=== PATIENT | female | born 1965 | race Caucasian/White ===

== ENCOUNTER → 2016-02-22 | Outpatient (REF) | payer BC ==
[2016-02-22 12:09] LABS: MEAN CORPUSCULAR HEMOGLOBIN 29.4 pg (27.0-33.0); MEAN CORPUSCULAR HGB CONC 33.9 g/dl (32.0-36.5); MEAN CORPUSCULAR VOLUME 86.8 fl (80.0-96.0); RED CELL DISTRIBUTION WIDTH 12.9 % (11.5-14.5); WHITE BLOOD COUNT 6.2 K/mm3 (4.0-10.0)
[2016-02-22 12:27] LABS: ALBUMIN 3.7 GM/DL (3.2-5.2); ALBUMIN/GLOBULIN RATIO 1.23 (1.00-1.93); ALKALINE PHOSPHATASE 64 U/L (45-117); ALT/SGPT 22 U/L (12-78); ANION GAP 7 MEQ/L (8-16); AST/SGOT 9 U/L (15-37); BILIRUBIN,TOTAL 0.4 MG/DL (0.2-1.0); BLOOD UREA NITROGEN 17 MG/DL (7-18); CARBON DIOXIDE LEVEL 27 MEQ/L (21-32); CHLORIDE LEVEL 108 MEQ/L (98-107); CHOLESTEROL LEVEL 145 MG/DL (<200); CREATININE FOR GFR 0.77 MG/DL (0.55-1.02); FREE T4 1.21 NG/DL (0.76-1.46); GLOMERULAR FILTRATION RATE > 60.0 (>58); GLUCOSE, FASTING 85 MG/DL (70-105); POTASSIUM SERUM 4.8 MEQ/L (3.5-5.1); SODIUM LEVEL 142 MEQ/L (136-145); TOTAL PROTEIN 6.7 GM/DL (6.4-8.2); TRIGLYCERIDES LEVEL 54 MG/DL (<150)
== END ==
LOC: M LABDRAW1 11:33
PROVIDERS: ATTEND Nurse Practitioner Family
DX: E78.00 Pure hypercholesterolemia, unspecified (principal); E03.9 Hypothyroidism, unspecified

== ENCOUNTER → 2016-06-02 | Outpatient (REF) | payer BC ==
[2016-06-02 12:31] LABS: MEAN CORPUSCULAR HEMOGLOBIN 29.9 pg (27.0-33.0); MEAN CORPUSCULAR HGB CONC 33.6 g/dl (32.0-36.5); RED CELL DISTRIBUTION WIDTH 12.8 % (11.5-14.5); WHITE BLOOD COUNT 5.8 K/mm3 (4.0-10.0)
[2016-06-02 13:07] LABS: ALBUMIN 3.5 GM/DL (3.2-5.2); ALBUMIN/GLOBULIN RATIO 1.13 (1.00-1.93); ALKALINE PHOSPHATASE 62 U/L (45-117); ALT/SGPT 27 U/L (12-78); ANION GAP 4 MEQ/L (8-16); AST/SGOT 15 U/L (15-37); BILIRUBIN,TOTAL 0.4 MG/DL (0.2-1.0); BLOOD UREA NITROGEN 14 MG/DL (7-18); CALCIUM LEVEL 8.6 MG/DL (8.5-10.1); CARBON DIOXIDE LEVEL 29 MEQ/L (21-32); CHLORIDE LEVEL 106 MEQ/L (98-107); CHOLESTEROL LEVEL 163 MG/DL (<200); CREATININE FOR GFR 0.72 MG/DL (0.55-1.02); GLOMERULAR FILTRATION RATE > 60.0 (>58); GLUCOSE, FASTING 76 MG/DL (70-105); MAGNESIUM LEVEL 2.2 MG/DL (1.8-2.4); POTASSIUM SERUM 4.9 MEQ/L (3.5-5.1); SODIUM LEVEL 139 MEQ/L (136-145); TOTAL PROTEIN 6.6 GM/DL (6.4-8.2); TRIGLYCERIDES LEVEL 91 MG/DL (<150)
== END ==
LOC: M LABDRAW1 11:44
PROVIDERS: ATTEND Nurse Practitioner Family
DX: D64.9 Anemia, unspecified (principal); E87.6 Hypokalemia; E78.5 Hyperlipidemia, unspecified; E03.9 Hypothyroidism, unspecified; E55.9 Vitamin D deficiency, unspecified; E83.42 Hypomagnesemia

== ENCOUNTER → 2016-06-05 | Outpatient (REF) | payer BC ==
[2016-06-05 12:19] LABS: MAGNESIUM LEVEL 2.3 MG/DL (1.8-2.4)
== END ==
LOC: M LABDRAW1 11:29
PROVIDERS: ATTEND Nurse Practitioner Family
DX: E83.42 Hypomagnesemia (principal)

== ENCOUNTER → 2016-10-03 | Outpatient (REF) | payer BC ==
[2016-10-03 12:47] LABS: MEAN CORPUSCULAR HEMOGLOBIN 29.8 pg (27.0-33.0); MEAN CORPUSCULAR HGB CONC 33.6 g/dl (32.0-36.5); MEAN CORPUSCULAR VOLUME 88.6 fl (80.0-96.0); RED CELL DISTRIBUTION WIDTH 12.5 % (11.5-14.5); WHITE BLOOD COUNT 6.4 K/mm3 (4.0-10.0)
[2016-10-03 13:28] LABS: VITAMIN B12 LEVEL 1321 PG/ML (247-911)
[2016-10-03 13:36] LABS: ALBUMIN 3.6 GM/DL (3.2-5.2); ALBUMIN/GLOBULIN RATIO 1.16 (1.00-1.93); ALKALINE PHOSPHATASE 59 U/L (45-117); ALT/SGPT 22 U/L (12-78); ANION GAP 6 MEQ/L (8-16); AST/SGOT 16 U/L (15-37); BILIRUBIN,TOTAL 0.4 MG/DL (0.2-1.0); BLOOD UREA NITROGEN 16 MG/DL (7-18); CARBON DIOXIDE LEVEL 27 MEQ/L (21-32); CHLORIDE LEVEL 108 MEQ/L (98-107); CHOLESTEROL LEVEL 161 MG/DL (<200); CREATININE FOR GFR 0.84 MG/DL (0.55-1.02); FREE T4 1.13 NG/DL (0.76-1.46); GLOMERULAR FILTRATION RATE > 60.0 (>58); GLUCOSE, FASTING 82 MG/DL (70-105); POTASSIUM SERUM 5.1 MEQ/L (3.5-5.1); SODIUM LEVEL 141 MEQ/L (136-145); TOTAL PROTEIN 6.7 GM/DL (6.4-8.2); TRIGLYCERIDES LEVEL 80 MG/DL (<150)
== END ==
LOC: M LABDRAW1 08:08
PROVIDERS: ATTEND Internal Medicine Cardiovascular Disease
DX: E03.9 Hypothyroidism, unspecified (principal); E55.9 Vitamin D deficiency, unspecified; E78.4 Other hyperlipidemia; E53.9 Vitamin B deficiency, unspecified

== ENCOUNTER → 2016-12-30 | Outpatient (CLI) | payer BC ==
[2016-12-30 10:51] LABS: MEAN CORPUSCULAR HEMOGLOBIN 29.1 pg (27.0-33.0); MEAN CORPUSCULAR HGB CONC 33.3 g/dl (32.0-36.5); MEAN CORPUSCULAR VOLUME 87.3 fl (80.0-96.0); PLATELET COUNT, AUTOMATED 263 10^3/uL (150-450); RED CELL DISTRIBUTION WIDTH 12.4 % (11.5-14.5); WHITE BLOOD COUNT 7.3 10^3/uL (4.0-10.0)
[2016-12-30 11:11] LABS: VITAMIN B12 LEVEL 1856 PG/ML (247-911)
[2016-12-30 11:22] LABS: ALBUMIN 3.6 GM/DL (3.2-5.2); ALKALINE PHOSPHATASE 58 U/L (45-117); ALT/SGPT 26 U/L (12-78); ANION GAP 6 MEQ/L (8-16); AST/SGOT 8 U/L (7-37); BILIRUBIN,TOTAL 0.4 MG/DL (0.2-1.0); BLOOD UREA NITROGEN 13 MG/DL (7-18); CALCIUM LEVEL 8.8 MG/DL (8.5-10.1); CARBON DIOXIDE LEVEL 28 MEQ/L (21-32); CHLORIDE LEVEL 107 MEQ/L (98-107); CHOLESTEROL LEVEL 181 MG/DL (<200); CREATININE FOR GFR 0.78 MG/DL (0.55-1.02); FREE T4 1.15 NG/DL (0.76-1.46); GLOMERULAR FILTRATION RATE > 60.0 (>51); GLUCOSE, FASTING 82 MG/DL (70-105); POTASSIUM SERUM 4.1 MEQ/L (3.5-5.1); SODIUM LEVEL 141 MEQ/L (136-145); TOTAL PROTEIN 6.6 GM/DL (6.4-8.2); TRIGLYCERIDES LEVEL 55 MG/DL (<150)
== END ==
LOC: M LABDRAW1 09:53
PROVIDERS: ATTEND Nurse Practitioner Family
DX: E78.00 Pure hypercholesterolemia, unspecified (principal); E03.9 Hypothyroidism, unspecified; E55.9 Vitamin D deficiency, unspecified

== ENCOUNTER → 2017-06-16 | Outpatient (REF) | payer BC ==
[2017-06-16 13:53] LABS: HEMATOCRIT 39.6 % (36.0-47.0); HEMOGLOBIN 12.9 g/dl (12.0-15.5); MEAN CORPUSCULAR HEMOGLOBIN 28.7 pg (27.0-33.0); MEAN CORPUSCULAR HGB CONC 32.6 g/dl (32.0-36.5); MEAN CORPUSCULAR VOLUME 88.2 fl (80.0-96.0); PLATELET COUNT, AUTOMATED 273 10^3/uL (150-450); RED BLOOD COUNT 4.49 10^6/uL (4.00-5.40); RED CELL DISTRIBUTION WIDTH 12.4 % (11.5-14.5); WHITE BLOOD COUNT 5.7 10^3/uL (4.0-10.0)
[2017-06-16 14:15] LABS: TOTAL 25(OH) VITAMIN D 42.6 NG/ML (30.0-100.0)
[2017-06-16 14:21] LABS: ALBUMIN 3.6 GM/DL (3.2-5.2); ALBUMIN/GLOBULIN RATIO 1.03 (1.00-1.93); ALKALINE PHOSPHATASE 61 U/L (45-117); ALT/SGPT 24 U/L (12-78); ANION GAP 5 MEQ/L (8-16); AST/SGOT 16 U/L (7-37); BILIRUBIN,TOTAL 0.5 MG/DL (0.2-1.0); BLOOD UREA NITROGEN 15 MG/DL (7-18); CALCIUM LEVEL 8.9 MG/DL (8.5-10.1); CARBON DIOXIDE LEVEL 27 MEQ/L (21-32); CHLORIDE LEVEL 110 MEQ/L (98-107); CHOLESTEROL LEVEL 160 MG/DL (<200); CHOLESTEROL RISK RATIO 3.076 (<5); CPK CREATINE PHOSPHOKINASE 70 U/L (26-192); CREATININE FOR GFR 0.79 MG/DL (0.55-1.30); FREE T4 1.12 NG/DL (0.76-1.46); GLOMERULAR FILTRATION RATE > 60.0 (>51); GLUCOSE, FASTING 77 MG/DL (70-100); HDL CHOLESTEROL 52 MG/DL (>40); LDL CHOLESTEROL 96.2 MG/DL (<100); NON-HDL-C 108 MG/DL; POTASSIUM SERUM 4.6 MEQ/L (3.5-5.1); SODIUM LEVEL 142 MEQ/L (136-145); TOTAL PROTEIN 7.1 GM/DL (6.4-8.2); TRIGLYCERIDES LEVEL 59 MG/DL (<150)
== END ==
LOC: M LABDRAW1 13:19
DX: I10 Essential (primary) hypertension (principal); E03.9 Hypothyroidism, unspecified; E78.00 Pure hypercholesterolemia, unspecified; E55.9 Vitamin D deficiency, unspecified
CPT/HCPCS: 82550

== ENCOUNTER → 2017-09-14 | Outpatient (REF) | payer BC ==
[2017-09-14 12:17] LABS: HEMATOCRIT 38.7 % (36.0-47.0); HEMOGLOBIN 12.9 g/dl (12.0-15.5); MEAN CORPUSCULAR HEMOGLOBIN 29.5 pg (27.0-33.0); MEAN CORPUSCULAR HGB CONC 33.3 g/dl (32.0-36.5); MEAN CORPUSCULAR VOLUME 88.4 fl (80.0-96.0); PLATELET COUNT, AUTOMATED 232 10^3/uL (150-450); RED BLOOD COUNT 4.38 10^6/uL (4.00-5.40); RED CELL DISTRIBUTION WIDTH 12.4 % (11.5-14.5); WHITE BLOOD COUNT 5.3 10^3/uL (4.0-10.0)
[2017-09-14 12:23] LABS: TOTAL 25(OH) VITAMIN D 39.4 NG/ML (30.0-100.0)
[2017-09-14 12:26] LABS: ALKALINE PHOSPHATASE 60 U/L (45-117); ALT/SGPT 21 U/L (12-78); ANION GAP 7 MEQ/L (8-16); AST/SGOT 11 U/L (7-37); BILIRUBIN,TOTAL 0.3 MG/DL (0.2-1.0); BLOOD UREA NITROGEN 17 MG/DL (7-18); CALCIUM LEVEL 8.5 MG/DL (8.5-10.1); CARBON DIOXIDE LEVEL 27 MEQ/L (21-32); CHLORIDE LEVEL 109 MEQ/L (98-107); CHOLESTEROL LEVEL 171 MG/DL (<200); CHOLESTEROL RISK RATIO 3.109 (<5); CPK CREATINE PHOSPHOKINASE 60 U/L (26-192); CREATININE FOR GFR 0.87 MG/DL (0.55-1.30); GLOMERULAR FILTRATION RATE > 60.0 (>51); GLUCOSE, FASTING 84 MG/DL (70-100); HDL CHOLESTEROL 55 MG/DL (>40); LDL CHOLESTEROL 100.8 MG/DL (<100); NON-HDL-C 116 MG/DL; POTASSIUM SERUM 4.7 MEQ/L (3.5-5.1); SODIUM LEVEL 143 MEQ/L (136-145); TOTAL PROTEIN 6.8 GM/DL (6.4-8.2); TRIGLYCERIDES LEVEL 76 MG/DL (<150)
[2017-09-14 12:27] LABS: ALBUMIN 3.5 GM/DL (3.2-5.2); ALBUMIN/GLOBULIN RATIO 1.06 (1.00-1.93); FREE T4 1.03 NG/DL (0.76-1.46)
== END ==
LOC: M LABDRAW1 11:50
DX: E03.9 Hypothyroidism, unspecified (principal); E78.00 Pure hypercholesterolemia, unspecified; E55.9 Vitamin D deficiency, unspecified
CPT/HCPCS: 82550

== ENCOUNTER → 2017-12-21 | Outpatient (REF) | payer BC ==
[2017-12-21 13:18] LABS: BASO # 0.1 10^3/uL (0.0-0.2); BASO % 0.7 % (0.0-1.0); EOS # 0.1 10^3/uL (0.0-0.50); EOS % 1.3 % (0.0-3.0); HEMATOCRIT 40.2 % (36.0-47.0); HEMOGLOBIN 13.2 g/dl (12.0-15.5); IMMATURE GRANULOCYTE % 0.4 % (0-3.0); LYMPH # 1.3 10^3/uL (1.5-4.5); MEAN CORPUSCULAR HEMOGLOBIN 29.3 pg (27.0-33.0); MEAN CORPUSCULAR HGB CONC 32.8 g/dl (32.0-36.5); MEAN CORPUSCULAR VOLUME 89.3 fl (80.0-96.0); MONO # 0.6 10^3/uL (0.0-0.8); MONO % 7.8 % (0.0-5.0); NEUTROPHILS # 5.1 10^3/uL (1.8-7.7); NEUTROPHILS % 71.8 % (36.0-66.0); PLATELET COUNT, AUTOMATED 249 10^3/uL (150-450); RED CELL DISTRIBUTION WIDTH 12.5 % (11.5-14.5); WHITE BLOOD COUNT 7.1 10^3/uL (4.0-10.0)
[2017-12-21 13:44] LABS: ERYTHROCYTE SEDIMENTATION RATE 17 mm/hr (0-30)
[2017-12-21 13:53] LABS: RHEUMATOID FACTOR QUANT < 10.0 IU/ML (<15.0)
[2017-12-21 14:17] LABS: FOLATE 13.8 NG/ML; TOTAL 25(OH) VITAMIN D 31.8 NG/ML (30.0-100.0); VITAMIN B12 LEVEL 1847 PG/ML
[2017-12-22 15:15] LABS: ANTI DOUBLE STRAND-DNA AB 1 IU/mL (0-9); ANTINUCLEAR ANTIBODIES DIRECT Positive (Negative); RNP ANTIBODIES <0.2 AI (0.0-0.9); SJOGREN'S ANTI SS-A <0.2 AI (0.0-0.9); SJOGREN'S ANTI SS-B 0.6 AI (0.0-0.9); SMITH ANTIBODIES <0.2 AI (0.0-0.9)
== END ==
LOC: M LABNEURO 08:36
DX: E55.9 Vitamin D deficiency, unspecified (principal); E53.8 Deficiency of other specified B group vitamins
CPT/HCPCS: 82746

== ENCOUNTER → 2018-07-17 | Outpatient (REF) | payer BC | LOC: M SFHCLERA 10:48 | PROVIDERS: ATTEND Nurse Practitioner Family | DX: J02.9 Acute pharyngitis, unspecified (principal) ==

== ENCOUNTER → 2018-07-29 | Outpatient (REF) | payer BC ==
[2018-07-29 12:40] LABS: HEMATOCRIT 38.2 % (36.0-47.0); HEMOGLOBIN 12.3 g/dl (12.0-15.5); MEAN CORPUSCULAR HEMOGLOBIN 28.5 pg (27.0-33.0); MEAN CORPUSCULAR HGB CONC 32.2 g/dl (32.0-36.5); MEAN CORPUSCULAR VOLUME 88.6 fl (80.0-96.0); PLATELET COUNT, AUTOMATED 235 10^3/uL (150-450); RED BLOOD COUNT 4.31 10^6/uL (4.00-5.40); WHITE BLOOD COUNT 7.1 10^3/uL (4.0-10.0)
[2018-07-29 12:55] LABS: ALBUMIN 3.6 GM/DL (3.2-5.2); ALT/SGPT 19 U/L (12-78); BILIRUBIN,TOTAL 0.4 MG/DL (0.2-1.0); BLOOD UREA NITROGEN 18 MG/DL (7-18); CALCIUM LEVEL 8.8 MG/DL (8.5-10.1); CARBON DIOXIDE LEVEL 29 MEQ/L (21-32); CHLORIDE LEVEL 108 MEQ/L (98-107); CHOLESTEROL LEVEL 156 MG/DL (<200); CPK CREATINE PHOSPHOKINASE 41 U/L (26-192); CREATININE FOR GFR 0.83 MG/DL (0.55-1.30); FREE T4 1.22 NG/DL (0.76-1.46); GLOMERULAR FILTRATION RATE > 60.0 (>51); GLUCOSE, FASTING 80 MG/DL (70-100); HDL CHOLESTEROL 48 MG/DL (>40); LDL CHOLESTEROL 93 MG/DL (<100); NON-HDL-C 108 MG/DL; POTASSIUM SERUM 3.9 MEQ/L (3.5-5.1); SODIUM LEVEL 142 MEQ/L (136-145); TRIGLYCERIDES LEVEL 77 MG/DL (<150)
== END ==
LOC: M LABDRAW1 12:03
PROVIDERS: ATTEND Nurse Practitioner Family
DX: I10 Essential (primary) hypertension (principal); E03.9 Hypothyroidism, unspecified; E78.5 Hyperlipidemia, unspecified

== ENCOUNTER → 2018-09-07 | Outpatient (REF) | payer BC | LOC: M SFHCLERA 10:09 | PROVIDERS: ATTEND Nurse Practitioner Family | DX: J02.9 Acute pharyngitis, unspecified (principal) ==

== ENCOUNTER → 2018-11-03 | Outpatient (REF) | payer BC ==
[2018-11-03 12:53] LABS: HEMATOCRIT 38.4 % (36.0-47.0); HEMOGLOBIN 12.2 g/dl (12.0-15.5); MEAN CORPUSCULAR HEMOGLOBIN 28.8 pg (27.0-33.0); MEAN CORPUSCULAR HGB CONC 31.8 g/dl (32.0-36.5); MEAN CORPUSCULAR VOLUME 90.8 fl (80.0-96.0); PLATELET COUNT, AUTOMATED 225 10^3/uL (150-450); RED BLOOD COUNT 4.23 10^6/uL (4.00-5.40); WHITE BLOOD COUNT 5.4 10^3/uL (4.0-10.0)
[2018-11-03 13:08] LABS: ALBUMIN 3.6 GM/DL (3.2-5.2); ALT/SGPT 18 U/L (12-78); BILIRUBIN,TOTAL 0.4 MG/DL (0.2-1.0); BLOOD UREA NITROGEN 12 MG/DL (7-18); CALCIUM LEVEL 8.9 MG/DL (8.5-10.1); CARBON DIOXIDE LEVEL 26 MEQ/L (21-32); CHLORIDE LEVEL 108 MEQ/L (98-107); CHOLESTEROL LEVEL 153 MG/DL (<200); CPK CREATINE PHOSPHOKINASE 48 U/L (26-192); CREATININE FOR GFR 0.72 MG/DL (0.55-1.30); FREE T4 1.15 NG/DL (0.76-1.46); GLOMERULAR FILTRATION RATE > 60.0 (>51); GLUCOSE, FASTING 75 MG/DL (70-100); HDL CHOLESTEROL 51 MG/DL (>40); LDL CHOLESTEROL 90 MG/DL (<100); NON-HDL-C 102 MG/DL; POTASSIUM SERUM 3.7 MEQ/L (3.5-5.1); SODIUM LEVEL 141 MEQ/L (136-145); TOTAL PROTEIN 6.5 GM/DL (6.4-8.2); TRIGLYCERIDES LEVEL 59 MG/DL (<150)
[2018-11-03 13:51] LABS: TOTAL 25(OH) VITAMIN D 54.6 NG/ML (30.0-100.0)
== END ==
LOC: M LABDRAW1 11:55
PROVIDERS: ATTEND Nurse Practitioner Family
DX: I10 Essential (primary) hypertension (principal); E78.5 Hyperlipidemia, unspecified; E55.9 Vitamin D deficiency, unspecified; E03.9 Hypothyroidism, unspecified

== ENCOUNTER → 2019-01-03 | Outpatient (REF) | payer BC | LOC: M SFHCLERA 10:48 | PROVIDERS: ATTEND Nurse Practitioner Family | DX: J02.9 Acute pharyngitis, unspecified (principal) ==

== ENCOUNTER → 2019-02-04 | Outpatient (REF) | payer BC ==
[2019-02-04 12:31] LABS: ALBUMIN 3.5 GM/DL (3.2-5.2); ALT/SGPT 25 U/L (12-78); BILIRUBIN,TOTAL 0.3 MG/DL (0.2-1.0); BLOOD UREA NITROGEN 19 MG/DL (7-18); CALCIUM LEVEL 9.3 MG/DL (8.5-10.1); CARBON DIOXIDE LEVEL 28 MEQ/L (21-32); CHLORIDE LEVEL 108 MEQ/L (98-107); CHOLESTEROL LEVEL 164 MG/DL (<200); CHOLESTEROL RISK RATIO 2.645 (<5); CPK CREATINE PHOSPHOKINASE 58 U/L (26-192); GLOMERULAR FILTRATION RATE > 60.0 (>51); GLUCOSE, FASTING 77 MG/DL (70-100); HDL CHOLESTEROL 62 MG/DL (>40); LDL CHOLESTEROL 90 MG/DL (<100); NON-HDL-C 102 MG/DL; POTASSIUM SERUM 4.1 MEQ/L (3.5-5.1); SODIUM LEVEL 141 MEQ/L (136-145); TRIGLYCERIDES LEVEL 62 MG/DL (<150)
[2019-02-04 12:36] LABS: HEMATOCRIT 38.8 % (36.0-47.0); HEMOGLOBIN 12.4 g/dl (12.0-15.5); MEAN CORPUSCULAR VOLUME 90.7 fl (80.0-96.0); PLATELET COUNT, AUTOMATED 231 10^3/uL (150-450); RED BLOOD COUNT 4.28 10^6/uL (4.00-5.40); WHITE BLOOD COUNT 5.3 10^3/uL (4.0-10.0)
== END ==
LOC: M LABDRAW1 11:57
PROVIDERS: ATTEND Nurse Practitioner Family
DX: I10 Essential (primary) hypertension (principal); E78.5 Hyperlipidemia, unspecified; E03.9 Hypothyroidism, unspecified

== ENCOUNTER → 2019-05-03 | Outpatient (REF) | payer BC ==
[2019-05-03 11:08] LABS: C REACTIVE PROTEIN QUANTITATIV < 0.30 MG/DL (0.00-0.30); RHEUMATOID FACTOR QUANT < 10.0 IU/ML (<15.0); URIC ACID 4.5 MG/DL (2.6-6.0)
== END ==
LOC: M LABDRAW1 09:08
PROVIDERS: ATTEND Physician Assistant
DX: M50.30 Other cervical disc degeneration, unspecified cervical region (principal)

== ENCOUNTER → 2019-05-03 | Outpatient (REF) | payer BC ==
[2019-05-03 11:01] LABS: HEMATOCRIT 40.8 % (36.0-47.0); HEMOGLOBIN 13.2 g/dl (12.0-15.5); MEAN CORPUSCULAR HEMOGLOBIN 29.4 pg (27.0-33.0); MEAN CORPUSCULAR HGB CONC 32.4 g/dl (32.0-36.5); MEAN CORPUSCULAR VOLUME 90.9 fl (80.0-96.0); PLATELET COUNT, AUTOMATED 241 10^3/uL (150-450); RED BLOOD COUNT 4.49 10^6/uL (4.00-5.40); WHITE BLOOD COUNT 4.3 10^3/uL (4.0-10.0)
[2019-05-03 11:15] LABS: ALBUMIN 3.5 GM/DL (3.2-5.2); ALT/SGPT 24 U/L (12-78); BILIRUBIN,TOTAL 0.4 MG/DL (0.2-1.0); BLOOD UREA NITROGEN 17 MG/DL (7-18); CALCIUM LEVEL 8.9 MG/DL (8.5-10.1); CARBON DIOXIDE LEVEL 30 MEQ/L (21-32); CHLORIDE LEVEL 107 MEQ/L (98-107); CHOLESTEROL LEVEL 164 MG/DL (<200); CHOLESTEROL RISK RATIO 3.153 (<5); CPK CREATINE PHOSPHOKINASE 55 U/L (26-192); CREATININE FOR GFR 0.83 MG/DL (0.55-1.30); GLOMERULAR FILTRATION RATE > 60.0 (>51); GLUCOSE, FASTING 66 MG/DL (70-100); HDL CHOLESTEROL 52 MG/DL (>40); LDL CHOLESTEROL 95 MG/DL (<100); NON-HDL-C 112 MG/DL; SODIUM LEVEL 140 MEQ/L (136-145); TRIGLYCERIDES LEVEL 83 MG/DL (<150)
[2019-05-03 11:18] LABS: TOTAL 25(OH) VITAMIN D 60.3 NG/ML (30.0-100.0)
== END ==
LOC: M LABDRAW1 09:06
PROVIDERS: ATTEND Nurse Practitioner Family
DX: M50.30 Other cervical disc degeneration, unspecified cervical region (principal)

== ENCOUNTER → 2019-06-16 | Outpatient (CLI) | payer BC ==
[2019-06-16 11:11] LABS: HEMATOCRIT 41.9 % (36.0-47.0); HEMOGLOBIN 13.4 g/dl (12.0-15.5); MEAN CORPUSCULAR HEMOGLOBIN 28.8 pg (27.0-33.0); MEAN CORPUSCULAR VOLUME 90.1 fl (80.0-96.0); PLATELET COUNT, AUTOMATED 239 10^3/uL (150-450); RED BLOOD COUNT 4.65 10^6/uL (4.00-5.40); WHITE BLOOD COUNT 4.3 10^3/uL (4.0-10.0)
[2019-06-16 11:32] LABS: ALBUMIN 3.7 GM/DL (3.2-5.2); ALT/SGPT 39 U/L (12-78); BILIRUBIN,TOTAL 0.3 MG/DL (0.2-1.0); BLOOD UREA NITROGEN 17 MG/DL (7-18); CARBON DIOXIDE LEVEL 30 MEQ/L (21-32); CHLORIDE LEVEL 108 MEQ/L (98-107); CPK CREATINE PHOSPHOKINASE 152 U/L (26-192); CREATININE FOR GFR 0.84 MG/DL (0.55-1.30); GLOMERULAR FILTRATION RATE > 60.0 (>51); GLUCOSE, FASTING 82 MG/DL (70-100); LDH LACTATE DEHYDROGENASE 194 U/L (84-246); POTASSIUM SERUM 4.6 MEQ/L (3.5-5.1); SODIUM LEVEL 142 MEQ/L (136-145); TOTAL PROTEIN 7.2 GM/DL (6.4-8.2)
== END ==
LOC: M LAB 10:20
PROVIDERS: ATTEND Dermatology
DX: R21 Rash and other nonspecific skin eruption (principal)

== ENCOUNTER → 2019-07-01 | Outpatient (REF) | payer BC ==
[2019-07-01 16:57] LABS: COMPLEMENT C3 95 MG/DL (90-180); COMPLEMENT C4 24 MG/DL (10-40); CPK CREATINE PHOSPHOKINASE 157 U/L (26-192)
[2019-07-01 17:17] LABS: HEPATITIS B SURFACE ANTIGEN NEGATIVE (NEGATIVE)
[2019-07-05 14:07] LABS: ANTI DS-DNA AB Negative (Negative); HEPATITIS B CORE ANTIBODY IGG Negative (Negative); RNP ANTIBODY < 0.2 AI (0.0-0.9); SMITHS ANTIBODY < 0.2 AI (0.0-0.9); SSA SJOGRENS A <0.2 AI (0.0-0.9); SSB SJOGRENS B 0.6 AI (0.0-0.9)
[2019-07-06 07:52] LABS: HEPATITIS C VIRUS ABY INDEX 0.1 INDEX (<0.8)
== END ==
LOC: M SFHCRHEU 11:24
PROVIDERS: ATTEND Internal Medicine
DX: M33.90 Dermatopolymyositis, unspecified, organ involvement unspecified (principal); R76.8 Other specified abnormal immunological findings in serum

== ENCOUNTER → 2019-08-09 | Outpatient (CLI) | payer BC ==
--- NOTE | 2019-08-09 11:13 | REP ---
Clinical: History of dermatomyositis . Comparison: None . Technique: PA and lateral. Findings: The mediastinum and cardiac silhouette are normal. The lung whitaker are clear and without acute consolidation, effusion, or pneumothorax. The skeletal structures are intact and normal. Impression: 1. No acute cardiopulmonary process. Electronically Signed by Deonte Becerra MD 08/09/2019 11:04 A
== END ==
LOC: M RAD 10:49
PROVIDERS: ATTEND Internal Medicine
DX: M33.90 Dermatopolymyositis, unspecified, organ involvement unspecified (principal)

== ENCOUNTER → 2019-08-10 | Outpatient (CLI) | payer BC ==
[2019-08-10 11:28] LABS: HEMATOCRIT 38.1 % (36.0-47.0); HEMOGLOBIN 12.1 g/dl (12.0-15.5); MEAN CORPUSCULAR HEMOGLOBIN 28.7 pg (27.0-33.0); MEAN CORPUSCULAR HGB CONC 31.8 g/dl (32.0-36.5); MEAN CORPUSCULAR VOLUME 90.3 fl (80.0-96.0); PLATELET COUNT, AUTOMATED 227 10^3/uL (150-450); RED BLOOD COUNT 4.22 10^6/uL (4.00-5.40); WHITE BLOOD COUNT 5.4 10^3/uL (4.0-10.0)
[2019-08-10 12:10] LABS: ALBUMIN 3.4 GM/DL (3.2-5.2); ALT/SGPT 37 U/L (12-78); BILIRUBIN,TOTAL 0.3 MG/DL (0.2-1.0); BLOOD UREA NITROGEN 13 MG/DL (7-18); CARBON DIOXIDE LEVEL 30 MEQ/L (21-32); CHLORIDE LEVEL 107 MEQ/L (98-107); CHOLESTEROL LEVEL 156 MG/DL (<200); CHOLESTEROL RISK RATIO 2.736 (<5); CPK CREATINE PHOSPHOKINASE 127 U/L (26-192); CREATININE FOR GFR 0.72 MG/DL (0.55-1.30); FREE T4 1.13 NG/DL (0.76-1.46); GLOMERULAR FILTRATION RATE > 60.0 (>51); GLUCOSE, FASTING 74 MG/DL (70-100); HDL CHOLESTEROL 57 MG/DL (>40); LDL CHOLESTEROL 86 MG/DL (<100); NON-HDL-C 99 MG/DL; POTASSIUM SERUM 3.9 MEQ/L (3.5-5.1); SODIUM LEVEL 142 MEQ/L (136-145); TOTAL PROTEIN 6.9 GM/DL (6.4-8.2); TRIGLYCERIDES LEVEL 66 MG/DL (<150)
== END ==
LOC: M LAB 10:17
PROVIDERS: ATTEND Nurse Practitioner Family
DX: I10 Essential (primary) hypertension (principal); E78.5 Hyperlipidemia, unspecified; E03.9 Hypothyroidism, unspecified

== ENCOUNTER → 2019-09-01 | Outpatient (REF) | payer BC ==
[~2019-09-01] MED LIST: B-122500 PO; CETI-36 PO; CLOB60SO; D31000TA2 PO; EXCETAB33 PO; HM V5000 PO; HYDR-643; HYDR200T3; LEVO88TA3
== END ==
LOC: M PLALAB 09:31
PROVIDERS: ATTEND Specialist
DX: N95.1 Menopausal and female climacteric states (principal)

== ENCOUNTER → 2019-09-15 | Outpatient (CLI) | payer BC ==
--- NOTE | 2019-11-04 07:40 | REP ---
Delay in reporting results from malfunction of the hospital computer system as the result of a malware attack. There has been surgical removal of the uterus in 2000. The uterus cannot be identified consistent with this history. The right ovary measures 2.6 x 1.1 x 1.6 cm and is normal size. There is no dominant right ovarian mass or cyst. There is vascular flow in the right ovary with the Doppler resistive index in the parenchymal arteries measuring 0.45. The left ovary measures 2.1 x 1.5 x 1.5 cm and is normal size. There is no dominant left ovarian mass or cyst. There is vascular flow in the left ovary with the Doppler resistive index in the parenchymal arteries measuring 0.46. There is no free fluid in the cul-de-sac. IMPRESSION: Uterus surgically absent. The right and left ovaries are unremarkable by ultrasound. MTDD
== END ==
LOC: M WHC 07:57
PROVIDERS: ATTEND Specialist
DX: N83.209 Unspecified ovarian cyst, unspecified side (principal)

== ENCOUNTER → 2019-10-19 | Outpatient (CLI) | payer BC ==
[2019-10-19 12:36] LABS: BASO % 0.8 % (0.0-1.0); EOS # 0.1 10^3/uL (0.0-0.5); EOS % 1.4 % (0.0-3.0); HEMATOCRIT 41.8 % (36.0-47.0); HEMOGLOBIN 13.5 g/dl (12.0-15.5); LYMPH # 0.7 10^3/uL (1.5-5.0); LYMPH % 13.5 % (24.0-44.0); MEAN CORPUSCULAR HGB CONC 32.3 g/dl (32.0-36.5); MEAN CORPUSCULAR VOLUME 89.7 fl (80.0-96.0); MONO # 0.6 10^3/uL (0.0-0.8); MONO % 12.7 % (0.0-5.0); NEUTROPHILS # 3.5 10^3/uL (1.5-8.5); NEUTROPHILS % 71.2 % (36.0-66.0); PLATELET COUNT, AUTOMATED 219 10^3/uL (150-450); RED BLOOD COUNT 4.66 10^6/uL (4.00-5.40); WHITE BLOOD COUNT 4.9 10^3/uL (4.0-10.0)
[2019-10-19 13:17] LABS: ALBUMIN 3.8 GM/DL (3.2-5.2); ALT/SGPT 37 U/L (12-78); BILIRUBIN,TOTAL 0.4 MG/DL (0.2-1.0); BLOOD UREA NITROGEN 12 MG/DL (7-18); CALCIUM LEVEL 9.2 MG/DL (8.5-10.1); CARBON DIOXIDE LEVEL 32 MEQ/L (21-32); CHLORIDE LEVEL 107 MEQ/L (98-107); FREE T4 1.17 NG/DL (0.76-1.46); GLOMERULAR FILTRATION RATE > 60.0 (>51); GLUCOSE, FASTING 74 MG/DL (70-100); POTASSIUM SERUM 4.4 MEQ/L (3.5-5.1); SODIUM LEVEL 139 MEQ/L (136-145); TOTAL PROTEIN 7.5 GM/DL (6.4-8.2)
== END ==
LOC: M LAB 10:49
PROVIDERS: ATTEND Family Medicine
DX: M33.13 Other dermatomyositis without myopathy (principal)

== ENCOUNTER → 2019-12-04 | Outpatient (CLI) | payer BC | LOC: M LABSMTC 08:51 | PROVIDERS: ATTEND Anesthesiology | DX: Z01.812 Encounter for preprocedural laboratory examination (principal); Z20.828 Contact with and (suspected) exposure to other viral communicable diseases | CPT/HCPCS: C9803; U0003 ==

== ENCOUNTER 2019-12-09 12:15 | Day surgery (SDC) | payer BC ==
[~2019-12-09] VITALS: Ht 170.2 cm; Wt 76.2 kg
[~2019-12-09 12:15] MED LIST changes: +NS 1,000 ML IV ONE
[2019-12-09] MEDS ORDERED: propofoL 200 MG/20 ML VIAL As Ordered ONE ×2 (13:55→14:39)
[2019-12-09] MEDS ORDERED: LIDOCAINE 2% 100MG/5ML SDV (FOR ANES.) As Ordered ONE (13:55)
--- NOTE | 2019-12-09 14:38 | ROOR ---
Patient Name: Carmelita Aldana Procedure Date: 12/09/2019 2:05 PM Date of : 1965 Age: 54 Room: [facility] Gender: Female Note Status: Finalized Procedure: Upper GI endoscopy Indications: Dyspepsia Providers: Navid Caledron MD Referring MD: Ashley WILSON DO Requesting Provider: Medicines: Monitored Anesthesia Care Complications: No immediate complications. Estimated blood loss: None. Procedure: Pre-Anesthesia Assessment: - Prior to the procedure, a History and Physical was performed, and patient medications and allergies were reviewed. The patient is competent. The risks and benefits of the procedure and the sedation options and risks were discussed with the patient. All questions were answered and informed consent was obtained. Patient identification and proposed procedure were verified by the physician, the nurse and the anesthesiologist in the procedure room. Mental Status Examination: alert and oriented. Airway Examination: normal oropharyngeal airway and neck mobility. Respiratory Examination: clear to auscultation. CV Examination: normal. Prophylactic Antibiotics: The patient does not require prophylactic antibiotics. Prior Anticoagulants: The patient has taken no previous anticoagulant or antiplatelet agents. ASA Grade Assessment: II - A patient with mild systemic disease. After reviewing the risks and benefits, the patient was deemed in satisfactory condition to undergo the procedure. The anesthesia plan was to use monitored anesthesia care (MAC). Immediately prior to administration of medications, the patient was re-assessed for adequacy to receive sedatives. The heart rate, respiratory rate, oxygen saturations, blood pressure, adequacy of pulmonary ventilation, and response to care were monitored throughout the procedure. The physical status of the patient was re-assessed after the procedure. The Endoscope was introduced through the mouth, and advanced to the second part of duodenum. The upper GI endoscopy was accomplished without difficulty. The patient tolerated the procedure well. Findings: The examined esophagus was normal. The Z-line was regular and was found 40 cm from the incisors. Scattered moderate inflammation characterized by erosions, friability, granularity and linear erosions was found in the gastric body and in the gastric antrum. Biopsies were taken with a cold forceps for histology. Biopsies were taken with a cold forceps for Helicobacter pylori testing. Verification of patient identification for the specimen was done by the physician and nurse using the patient's name, date and medical record number. Estimated blood loss was minimal. The duodenal bulb and second portion of the duodenum were normal. Impression: - Normal esophagus. - Z-line regular, 40 cm from the incisors. - Gastritis. Biopsied. - Normal duodenal bulb and second portion of the duodenum. Recommendation: - Patient has a contact number available for emergencies. The signs and symptoms of potential delayed complications were discussed with the patient. Return to normal activities tomorrow. Written discharge instructions were provided to the patient. - Resume previous diet. - Continue present medications. - Await pathology results. - Recommend acid suppression medication. - Telephone GI clinic for pathology results in 2 weeks. - Return to primary care physician. Navid Calderon MD Navid Calderon MD 12/09/2019 2:38:33 PM Electronically signed by Navid Calderon MD Number of Addenda: 0 Note Initiated On: 12/09/2019 2:05 PM Estimated Blood Loss: Estimated blood loss: none.
--- NOTE | 2019-12-09 14:55 | ROOR ---
Patient Name: Carmelita Aldana Procedure Date: 12/09/2019 2:06 PM Date of : 1965 Age: 54 Room: [facility] Gender: Female Note Status: Finalized Procedure: Colonoscopy Indications: Screening for colorectal malignant neoplasm, Incidental - Chronic diarrhea Providers: Navid Calderon MD Referring MD: Ashley WILSON DO Requesting Provider: Medicines: Monitored Anesthesia Care Complications: No immediate complications. Procedure: Pre-Anesthesia Assessment: - Prior to the procedure, a History and Physical was performed, and patient medications and allergies were reviewed. The patient is competent. The risks and benefits of the procedure and the sedation options and risks were discussed with the patient. All questions were answered and informed consent was obtained. Patient identification and proposed procedure were verified by the physician, the nurse and the anesthesiologist in the procedure room. Mental Status Examination: alert and oriented. Airway Examination: normal oropharyngeal airway and neck mobility. Respiratory Examination: clear to auscultation. CV Examination: normal. Prophylactic Antibiotics: The patient does not require prophylactic antibiotics. Prior Anticoagulants: The patient has taken no previous anticoagulant or antiplatelet agents. ASA Grade Assessment: II - A patient with mild systemic disease. After reviewing the risks and benefits, the patient was deemed in satisfactory condition to undergo the procedure. The anesthesia plan was to use monitored anesthesia care (MAC). Immediately prior to administration of medications, the patient was re-assessed for adequacy to receive sedatives. The heart rate, respiratory rate, oxygen saturations, blood pressure, adequacy of pulmonary ventilation, and response to care were monitored throughout the procedure. The physical status of the patient was re-assessed after the procedure. The Colonoscope was introduced through the anus and advanced to the terminal ileum, with identification of the appendiceal orifice and IC valve. The colonoscopy was performed without difficulty. The patient tolerated the procedure well. The quality of the bowel preparation was good. The terminal ileum, ileocecal valve, appendiceal orifice, and rectum were photographed. Scope insertion time was 3 minutes. Scope withdrawal time was 9 minutes. The total duration of the procedure was 12 minutes. Findings: The perianal and digital rectal examinations were normal. The terminal ileum appeared normal. Normal mucosa was found in the entire colon. Biopsies for histology were taken with a cold forceps from the right colon, left colon and rectosigmoid colon for evaluation of microscopic colitis. Verification of patient identification for the specimen was done by the physician and nurse using the patient's name, date and medical record number. Estimated blood loss was minimal. There is no endoscopic evidence of polyps in the entire colon. Non-bleeding external and internal hemorrhoids were found during retroflexion. The hemorrhoids were small. Impression: - The examined portion of the ileum was normal. - Normal mucosa in the entire examined colon. Biopsied. - Non-bleeding external and internal hemorrhoids. Recommendation: - Patient has a contact number available for emergencies. The signs and symptoms of potential delayed complications were discussed with the patient. Return to normal activities tomorrow. Written discharge instructions were provided to the patient. - High fiber diet. - Continue present medications. - Await pathology results. - Repeat colonoscopy in 10 years for screening purposes. - Telephone GI clinic for pathology results in 2 weeks. - Return to primary care physician. Navid Calderon MD Navid Calderon MD 12/09/2019 2:54:37 PM Electronically signed by Navid Calderon MD Number of Addenda: 0 Note Initiated On: 12/09/2019 2:06 PM Estimated Blood Loss: Estimated blood loss was minimal.
[2019-12-09 15:10] VITALS: BP 144/74
== END 2019-12-09 15:25 | disposition home or self-care (01) ==
LOC: M OPP 12:15
PROVIDERS: ATTEND Internal Medicine Gastroenterology
DX: Z12.11 Encounter for screening for malignant neoplasm of colon (principal); K64.8 Other hemorrhoids; K29.70 Gastritis, unspecified, without bleeding; R10.13 Epigastric pain; M33.92 Dermatopolymyositis, unspecified with myopathy; E03.9 Hypothyroidism, unspecified; G47.30 Sleep apnea, unspecified; Z79.899 Other long term (current) drug therapy

== ENCOUNTER → 2019-12-14 | Outpatient (CLI) | payer BC ==
[~2019-12-14] MED LIST changes: -NS 1,000 ML IV ONE
[2019-12-14 09:54] LABS: BASO # 0.1 10^3/uL (0.0-0.2); BASO % 1.2 % (0.0-1.0); EOS # 0.1 10^3/uL (0.0-0.5); EOS % 2.7 % (0.0-3.0); HEMATOCRIT 39.6 % (36.0-47.0); HEMOGLOBIN 12.5 g/dl (12.0-15.5); LYMPH # 0.6 10^3/uL (1.5-5.0); LYMPH % 14.4 % (24.0-44.0); MEAN CORPUSCULAR HGB CONC 31.6 g/dl (32.0-36.5); MEAN CORPUSCULAR VOLUME 88.8 fl (80.0-96.0); MONO # 0.5 10^3/uL (0.0-0.8); MONO % 11.7 % (0.0-5.0); NEUTROPHILS # 2.8 10^3/uL (1.5-8.5); NEUTROPHILS % 69.8 % (36.0-66.0); PLATELET COUNT, AUTOMATED 209 10^3/uL (150-450); RED BLOOD COUNT 4.46 10^6/uL (4.00-5.40)
[2019-12-14 10:59] LABS: ALBUMIN 3.6 GM/DL (3.2-5.2); ALT/SGPT 47 U/L (12-78); BILIRUBIN,TOTAL 0.4 MG/DL (0.2-1.0); BLOOD UREA NITROGEN 15 MG/DL (7-18); CALCIUM LEVEL 9.8 MG/DL (8.5-10.1); CARBON DIOXIDE LEVEL 28 MEQ/L (21-32); CHLORIDE LEVEL 108 MEQ/L (98-107); CHOLESTEROL LEVEL 164 MG/DL (<200); CHOLESTEROL RISK RATIO 2.877 (<5); CREATININE FOR GFR 0.73 MG/DL (0.55-1.30); FOLATE 11.6 NG/ML; FREE T4 1.07 NG/DL (0.76-1.46); GLOMERULAR FILTRATION RATE > 60.0 (>51); GLUCOSE, FASTING 75 MG/DL (70-100); HDL CHOLESTEROL 57 MG/DL (>40); LDL CHOLESTEROL 85 MG/DL (<100); NON-HDL-C 107 MG/DL; POTASSIUM SERUM 4.4 MEQ/L (3.5-5.1); SODIUM LEVEL 141 MEQ/L (136-145); TOTAL 25(OH) VITAMIN D 54.9 NG/ML (30.0-100.0); TOTAL PROTEIN 7.1 GM/DL (6.4-8.2); TRIGLYCERIDES LEVEL 110 MG/DL (<150); VITAMIN B12 LEVEL 1068 PG/ML
== END ==
LOC: M LAB 09:25
PROVIDERS: ATTEND Physician Assistant
DX: E03.9 Hypothyroidism, unspecified (principal)

== ENCOUNTER → 2020-01-16 | Outpatient (CLI) | payer BC ==
[2020-01-16 14:34] LABS: ALBUMIN 3.7 GM/DL (3.2-5.2); ALT/SGPT 59 U/L (12-78); BILIRUBIN,TOTAL 0.5 MG/DL (0.2-1.0); BLOOD UREA NITROGEN 18 MG/DL (7-18); CALCIUM LEVEL 9.2 MG/DL (8.5-10.1); CARBON DIOXIDE LEVEL 29 MEQ/L (21-32); CHLORIDE LEVEL 107 MEQ/L (98-107); CPK CREATINE PHOSPHOKINASE 82 U/L (26-192); CREATININE FOR GFR 0.76 MG/DL (0.55-1.30); GLOMERULAR FILTRATION RATE > 60.0 (>51); GLUCOSE, FASTING 79 MG/DL (70-100); POTASSIUM SERUM 4.2 MEQ/L (3.5-5.1); RHEUMATOID FACTOR QUANT < 10.0 IU/ML (<15.0); SODIUM LEVEL 140 MEQ/L (136-145)
== END ==
LOC: M LAB 13:37
PROVIDERS: ATTEND Internal Medicine
DX: M33.90 Dermatopolymyositis, unspecified, organ involvement unspecified (principal)

== ENCOUNTER → 2020-02-16 | Outpatient (CLI) | payer BC ==
[2020-02-16 09:43] LABS: ALBUMIN 3.8 GM/DL (3.2-5.2); ALT/SGPT 35 U/L (12-78); BILIRUBIN,TOTAL 0.3 MG/DL (0.2-1.0); BLOOD UREA NITROGEN 18 MG/DL (7-18); C REACTIVE PROTEIN QUANTITATIV 0.31 MG/DL (0.00-0.30); CALCIUM LEVEL 9.3 MG/DL (8.5-10.1); CARBON DIOXIDE LEVEL 30 MEQ/L (21-32); CHLORIDE LEVEL 107 MEQ/L (98-107); CPK CREATINE PHOSPHOKINASE 67 U/L (26-192); CREATININE FOR GFR 0.83 MG/DL (0.55-1.30); GLOMERULAR FILTRATION RATE > 60.0 (>51); GLUCOSE, FASTING 82 MG/DL (70-100); POTASSIUM SERUM 4.5 MEQ/L (3.5-5.1); RHEUMATOID FACTOR QUANT < 10.0 IU/ML (<15.0); SODIUM LEVEL 141 MEQ/L (136-145); TOTAL PROTEIN 6.9 GM/DL (6.4-8.2)
== END ==
LOC: M LAB 08:22
PROVIDERS: ATTEND Internal Medicine
DX: M33.90 Dermatopolymyositis, unspecified, organ involvement unspecified (principal)

== ENCOUNTER → 2020-03-19 | Outpatient (CLI) | payer BC ==
[2020-03-19 08:41] LABS: BASO % 1.2 % (0.0-1.0); EOS # 0.1 10^3/uL (0.0-0.5); EOS % 4.2 % (0.0-3.0); HEMATOCRIT 37.4 % (36.0-47.0); HEMOGLOBIN 11.7 g/dl (12.0-15.5); LYMPH # 0.5 10^3/uL (1.5-5.0); LYMPH % 15.7 % (24.0-44.0); MEAN CORPUSCULAR HEMOGLOBIN 28.5 pg (27.0-33.0); MEAN CORPUSCULAR HGB CONC 31.3 g/dl (32.0-36.5); MEAN CORPUSCULAR VOLUME 91.2 fl (80.0-96.0); MONO # 0.3 10^3/uL (0.0-0.8); NEUTROPHILS # 2.3 10^3/uL (1.5-8.5); NEUTROPHILS % 68.6 % (36.0-66.0); PLATELET COUNT, AUTOMATED 211 10^3/uL (150-450); WHITE BLOOD COUNT 3.3 10^3/uL (4.0-10.0)
[2020-03-19 09:18] LABS: ALBUMIN 3.4 GM/DL (3.2-5.2); ALT/SGPT 29 U/L (12-78); BILIRUBIN,TOTAL 0.2 MG/DL (0.2-1.0); BLOOD UREA NITROGEN 16 MG/DL (7-18); CARBON DIOXIDE LEVEL 29 MEQ/L (21-32); CHLORIDE LEVEL 108 MEQ/L (98-107); CREATININE FOR GFR 0.76 MG/DL (0.55-1.30); FREE T4 1.11 NG/DL (0.76-1.46); GLOMERULAR FILTRATION RATE > 60.0 (>51); GLUCOSE, FASTING 77 MG/DL (70-100); POTASSIUM SERUM 4.1 MEQ/L (3.5-5.1); SODIUM LEVEL 143 MEQ/L (136-145); TOTAL PROTEIN 6.6 GM/DL (6.4-8.2)
[2020-03-19 10:37] LABS: TOTAL 25(OH) VITAMIN D 61.6 NG/ML (30.0-100.0)
== END ==
LOC: M LAB 07:35
PROVIDERS: ATTEND Physician Assistant
DX: E03.9 Hypothyroidism, unspecified (principal)

== ENCOUNTER → 2020-03-19 | Outpatient (CLI) | payer BC ==
[2020-03-19 09:09] LABS: ALBUMIN 3.4 GM/DL (3.2-5.2); ALT/SGPT 30 U/L (12-78); BILIRUBIN,TOTAL 0.2 MG/DL (0.2-1.0); BLOOD UREA NITROGEN 17 MG/DL (7-18); CALCIUM LEVEL 9.1 MG/DL (8.5-10.1); CARBON DIOXIDE LEVEL 29 MEQ/L (21-32); CHLORIDE LEVEL 107 MEQ/L (98-107); CPK CREATINE PHOSPHOKINASE 66 U/L (26-192); GLOMERULAR FILTRATION RATE > 60.0 (>51); GLUCOSE, FASTING 74 MG/DL (70-100); POTASSIUM SERUM 3.9 MEQ/L (3.5-5.1); RHEUMATOID FACTOR QUANT < 10.0 IU/ML (<15.0); SODIUM LEVEL 142 MEQ/L (136-145); TOTAL PROTEIN 6.5 GM/DL (6.4-8.2)
== END ==
LOC: M LAB 07:40
PROVIDERS: ATTEND Internal Medicine
DX: M33.90 Dermatopolymyositis, unspecified, organ involvement unspecified (principal)

== ENCOUNTER 2020-04-17 07:24 | Outpatient (CLI) | payer BC ==
[~2020-04-17] VITALS: Ht 170.2 cm; Wt 76.7 kg
[2020-04-17] VITALS (7 sets, daily range): BP systolic 116–139; BP diastolic 64–77
[~2020-04-17 07:24] MED LIST changes: +ALBUTEROL SULFATE 2.5 MG/0.5 ML INH NEB SOLN INH PRN; +EPINEPHrine INJ 1 MG/ML 1ML AMP IM PRN; +diphenhydrAMINE 50MG/ML VIAL (J1200) IV PRN; +methylPREDNISolone 125MG 2ML VIAL IV PRN
[2020-04-17] MEDS ORDERED: LORATADINE 10 MG TAB PO ONE (07:30)
[2020-04-17] MEDS ORDERED: methylPREDNISolone 125MG 2ML VIAL IV ONE (07:30)
[2020-04-17] MEDS ORDERED: ACETAMINOPHEN 500 MG TAB PO ONE (07:30)
[2020-04-17] MEDS ORDERED: IMMUNE GLOBULIN 10% 40 GM in IV 1 EA IV ONE (07:30)
[2020-04-17] MEDS ORDERED: IMMUNE GLOBULIN 10% 20 GM in IV 1 EA IV ONE (07:30)
[2020-04-17] MEDS ORDERED: IMMUNE GLOBULIN 10% 10 GM in IV 1 EA IV ONE (07:30)
[2020-04-17] MEDS ORDERED: IMMUNE GLOBULIN 10% 5 GM in IV 1 EA IV ONE (07:30)
== END 2020-04-17 13:50 | disposition home or self-care (01) ==
LOC: M INFU 07:24
PROVIDERS: ATTEND Internal Medicine Rheumatology
DX: M33.90 Dermatopolymyositis, unspecified, organ involvement unspecified (principal)
CPT/HCPCS: 96365; 96366; 96375; J1459; J2930

== ENCOUNTER 2020-04-18 07:19 | Outpatient (CLI) | payer BC ==
[~2020-04-18] VITALS: Ht 170.2 cm; Wt 77.2 kg
[~2020-04-18 07:19] MED LIST changes: +ACETAMINOPHEN 500 MG TAB PO ONE; +LORATADINE 10 MG TAB PO ONE; +methylPREDNISolone 40MG 1ML VIAL IV ONE
[2020-04-18] MEDS ORDERED: IMMUNE GLOBULIN 10% 10 GM in IV 1 EA IV ONE (07:30)
[2020-04-18] MEDS ORDERED: IMMUNE GLOBULIN 10% 5 GM in IV 1 EA IV ONE (07:30)
[2020-04-18] MEDS ORDERED: IMMUNE GLOBULIN 10% 20 GM in IV 1 EA IV ONE (07:30)
[2020-04-18] MEDS ORDERED: methylPREDNISolone 125MG 2ML VIAL IV ONE (07:30)
[2020-04-18] MEDS ORDERED: IMMUNE GLOBULIN 10% 40 GM in IV 1 EA IV ONE (07:30)
[2020-04-18 07:32] VITALS: BP 137/70
[2020-04-18 08:30] VITALS: BP 132/68
[2020-04-18 08:58] VITALS: BP 128/73
[2020-04-18 09:30] VITALS: BP 133/78
[2020-04-18 11:00] VITALS: BP 145/78
[2020-04-18 13:15] VITALS: BP 136/71
== END 2020-04-18 13:20 | disposition home or self-care (01) ==
LOC: M INFU 07:19
PROVIDERS: ATTEND Internal Medicine Rheumatology
DX: M33.90 Dermatopolymyositis, unspecified, organ involvement unspecified (principal)
CPT/HCPCS: 96365; 96366; 96375; J1459; J2930

== ENCOUNTER 2020-05-15 07:06 | Outpatient (CLI) | payer BC ==
[~2020-05-15] VITALS: Ht 170.2 cm; Wt 77.2 kg
[2020-05-15] VITALS (8 sets, daily range): BP systolic 128–154; BP diastolic 66–91
[~2020-05-15 07:06] MED LIST changes: -ACETAMINOPHEN 500 MG TAB PO ONE; -LORATADINE 10 MG TAB PO ONE; -methylPREDNISolone 40MG 1ML VIAL IV ONE
[2020-05-15] MEDS ORDERED: methylPREDNISolone 40MG 1ML VIAL IV ONE (07:30)
[2020-05-15] MEDS ORDERED: ACETAMINOPHEN 500 MG TAB PO ONE (07:30)
[2020-05-15] MEDS ORDERED: IMMUNE GLOBULIN 10% 10 GM in IV 1 EA IV ONE (07:30)
[2020-05-15] MEDS ORDERED: NS 1,000 ML IV SCH (07:30)
[2020-05-15] MEDS ORDERED: LORATADINE 10 MG TAB PO ONE (07:30)
[2020-05-15] MEDS ORDERED: IMMUNE GLOBULIN 10% 20 GM in IV 1 EA IV ONE (07:30)
[2020-05-15] MEDS ORDERED: IMMUNE GLOBULIN 10% 40 GM in IV 1 EA IV ONE (07:30)
[2020-05-15] MEDS ORDERED: IMMUNE GLOBULIN 10% 5 GM in IV 1 EA IV ONE (07:30)
== END 2020-05-15 13:15 | disposition home or self-care (01) ==
LOC: M INFU 07:06
PROVIDERS: ATTEND Internal Medicine Rheumatology
DX: M33.90 Dermatopolymyositis, unspecified, organ involvement unspecified (principal)
CPT/HCPCS: 96365; 96366; 96375; J1459; J2920

== ENCOUNTER 2020-05-16 07:04 | Outpatient (CLI) | payer BC ==
[~2020-05-16] VITALS: Ht 170.2 cm; Wt 76.7 kg
[2020-05-16] VITALS (7 sets, daily range): BP systolic 129–153; BP diastolic 61–86
[2020-05-16] MEDS ORDERED: LORATADINE 10 MG TAB PO ONE (07:30)
[2020-05-16] MEDS ORDERED: IMMUNE GLOBULIN 10% 40 GM in IV 1 EA IV ONE (07:30)
[2020-05-16] MEDS ORDERED: ACETAMINOPHEN 500 MG TAB PO ONE (07:30)
[2020-05-16] MEDS ORDERED: IMMUNE GLOBULIN 10% 20 GM in IV 1 EA IV ONE (07:30)
[2020-05-16] MEDS ORDERED: IMMUNE GLOBULIN 10% 5 GM in IV 1 EA IV ONE (07:30)
[2020-05-16] MEDS ORDERED: methylPREDNISolone 40MG 1ML VIAL IV ONE (07:30)
[2020-05-16] MEDS ORDERED: IMMUNE GLOBULIN 10% 10 GM in IV 1 EA IV ONE (07:30)
== END 2020-05-16 12:45 | disposition home or self-care (01) ==
LOC: M INFU 07:04
PROVIDERS: ATTEND Internal Medicine Rheumatology
DX: M33.90 Dermatopolymyositis, unspecified, organ involvement unspecified (principal)
CPT/HCPCS: 96365; 96366; 96375; J1459; J2920

== ENCOUNTER 2020-06-12 07:08 | Outpatient (CLI) | payer BC ==
[2020-06-12] VITALS (7 sets, daily range): BP systolic 118–158; BP diastolic 68–88
[~2020-06-12] VITALS: Ht 170.2 cm; Wt 76.7 kg
[2020-06-12] MEDS ORDERED: ACETAMINOPHEN 650MG PO PRIOR TO INFUSION PO ONE (07:30)
[2020-06-12] MEDS ORDERED: NS 1,000 ML IV SCH (07:30)
[2020-06-12] MEDS ORDERED: IMMUNE GLOBULIN 10% 40 GM in IV 1 EA IV ONE (07:30)
[2020-06-12] MEDS ORDERED: IMMUNE GLOBULIN 10% 10 GM in IV 1 EA IV ONE (07:30)
[2020-06-12] MEDS ORDERED: LORATADINE 10 MG TAB PO ONE (07:30)
[2020-06-12] MEDS ORDERED: methylPREDNISolone 125MG 2ML VIAL IV ONE (07:30)
[2020-06-12] MEDS ORDERED: IMMUNE GLOBULIN 10% 20 GM in IV 1 EA IV ONE (07:30)
[2020-06-12] MEDS ORDERED: IMMUNE GLOBULIN 10% 5 GM in IV 1 EA IV ONE (07:30)
[2020-06-13 07:15] VITALS: BP 145/85
== END 2020-06-12 13:15 | disposition home or self-care (01) ==
LOC: M INFU 07:08
PROVIDERS: ATTEND Internal Medicine Rheumatology
DX: M33.90 Dermatopolymyositis, unspecified, organ involvement unspecified (principal)
CPT/HCPCS: 96365; 96366; 96375; J1459; J2930

== ENCOUNTER 2020-06-13 07:09 | Outpatient (CLI) | payer BC ==
[~2020-06-13] VITALS: Ht 170.2 cm; Wt 76.7 kg
[2020-06-13] VITALS (7 sets, daily range): BP systolic 130–165; BP diastolic 72–86
[~2020-06-13 07:09] MED LIST changes: +ACETAMINOPHEN 650MG PO PRIOR TO INFUSION PO ONE; +IMMUNE GLOBULIN 10% 10 GM in IV 1 EA IV ONE; +IMMUNE GLOBULIN 10% 20 GM in IV 1 EA IV ONE; +IMMUNE GLOBULIN 10% 40 GM in IV 1 EA IV ONE; +IMMUNE GLOBULIN 10% 5 GM in IV 1 EA IV ONE; +LORATADINE 10 MG TAB PO ONE; +NS 1,000 ML IV SCH; +methylPREDNISolone 125MG 2ML VIAL IV ONE
== END 2020-06-13 13:00 | disposition home or self-care (01) ==
LOC: M INFU 07:09
PROVIDERS: ATTEND Internal Medicine Rheumatology
DX: M33.90 Dermatopolymyositis, unspecified, organ involvement unspecified (principal)
CPT/HCPCS: 96365; 96366; 96375; J1459; J2930

== ENCOUNTER 2020-07-11 07:18 | Outpatient (CLI) | payer BC ==
[~2020-07-11] VITALS: Ht 170.2 cm; Wt 79.5 kg
[2020-07-11] VITALS (8 sets, daily range): BP systolic 118–135; BP diastolic 72–90
[~2020-07-11 07:18] MED LIST changes: -ALBUTEROL SULFATE 2.5 MG/0.5 ML INH NEB SOLN INH PRN; -EPINEPHrine INJ 1 MG/ML 1ML AMP IM PRN; -IMMUNE GLOBULIN 10% 10 GM in IV 1 EA IV ONE; -IMMUNE GLOBULIN 10% 20 GM in IV 1 EA IV ONE; -IMMUNE GLOBULIN 10% 40 GM in IV 1 EA IV ONE; -IMMUNE GLOBULIN 10% 5 GM in IV 1 EA IV ONE; -NS 1,000 ML IV SCH; -diphenhydrAMINE 50MG/ML VIAL (J1200) IV PRN; -methylPREDNISolone 125MG 2ML VIAL IV PRN
[2020-07-11] MEDS: NS 1,000 ML IV SCH ×2 (07:23→07:30)
[2020-07-11] MEDS ORDERED: IMMUNE GLOBULIN 10% 5 GM in IV 1 EA IV ONE (07:30)
[2020-07-11] MEDS ORDERED: methylPREDNISolone 125MG 2ML VIAL IV PRN (07:30)
[2020-07-11] MEDS ORDERED: ALBUTEROL SULFATE 2.5 MG/0.5 ML INH NEB SOLN INH PRN (07:30)
[2020-07-11] MEDS ORDERED: IMMUNE GLOBULIN 10% 20 GM in IV 1 EA IV ONE (07:30)
[2020-07-11] MEDS ORDERED: EPINEPHrine INJ 1 MG/ML 1ML AMP IM PRN (07:30)
[2020-07-11] MEDS ORDERED: IMMUNE GLOBULIN 10% 10 GM in IV 1 EA IV ONE (07:30)
[2020-07-11] MEDS ORDERED: IMMUNE GLOBULIN 10% 40 GM in IV 1 EA IV ONE (07:30)
[2020-07-11] MEDS ORDERED: diphenhydrAMINE 50MG/ML VIAL (J1200) IV PRN (07:30)
[2020-07-11] MEDS ORDERED: LEUC25TA2 PO (07:34)
[2020-07-11] MEDS ORDERED: METH2.5T48 PO (07:34)
== END 2020-07-11 12:50 | disposition home or self-care (01) ==
LOC: M INFU 07:18
PROVIDERS: ATTEND Internal Medicine Rheumatology
DX: M33.90 Dermatopolymyositis, unspecified, organ involvement unspecified (principal)
CPT/HCPCS: 96365; 96366; 96375; J1459; J2930

== ENCOUNTER 2020-07-12 06:56 | Outpatient (CLI) | payer BC ==
[~2020-07-12] VITALS: Ht 170.2 cm; Wt 76.7 kg
[~2020-07-12 06:56] MED LIST changes: +LEUC25TA2 PO; +METH2.5T48 PO; -methylPREDNISolone 125MG 2ML VIAL IV ONE; +methylPREDNISolone 40MG 1ML VIAL IV ONE
[2020-07-12] MEDS ORDERED: EPINEPHrine INJ 1 MG/ML 1ML AMP IM PRN (07:00)
[2020-07-12] MEDS ORDERED: IMMUNE GLOBULIN 10% 10 GM in IV 1 EA IV ONE (07:00)
[2020-07-12] MEDS ORDERED: IMMUNE GLOBULIN 10% 40 GM in IV 1 EA IV ONE (07:00)
[2020-07-12] MEDS ORDERED: diphenhydrAMINE 50MG/ML VIAL (J1200) IV PRN (07:00)
[2020-07-12] MEDS ORDERED: IMMUNE GLOBULIN 10% 5 GM in IV 1 EA IV ONE (07:00)
[2020-07-12] MEDS ORDERED: ALBUTEROL SULFATE 2.5 MG/0.5 ML INH NEB SOLN INH PRN (07:00)
[2020-07-12] MEDS ORDERED: IMMUNE GLOBULIN 10% 20 GM in IV 1 EA IV ONE (07:00)
[2020-07-12] MEDS ORDERED: methylPREDNISolone 125MG 2ML VIAL IV PRN (07:00)
[2020-07-12 07:17] VITALS: BP 157/80
[2020-07-12 08:04] VITALS: BP 135/85
[2020-07-12 08:30] VITALS: BP 131/74
[2020-07-12 09:00] VITALS: BP 126/64
[2020-07-12 10:00] VITALS: BP 131/61
[2020-07-12 12:54] VITALS: BP 152/81
== END 2020-07-12 13:00 | disposition home or self-care (01) ==
LOC: M INFU 06:56
PROVIDERS: ATTEND Internal Medicine Rheumatology
DX: M33.10 Other dermatomyositis, organ involvement unspecified (principal)
CPT/HCPCS: 96365; 96366; J1459

== ENCOUNTER 2020-08-08 06:37 | Outpatient (CLI) | payer BC ==
[2020-08-08] VITALS (8 sets, daily range): BP systolic 127–148; BP diastolic 68–80
[~2020-08-08] VITALS: Ht 170.2 cm; Wt 76.7 kg
[~2020-08-08 06:37] MED LIST changes: -ACETAMINOPHEN 650MG PO PRIOR TO INFUSION PO ONE; -LORATADINE 10 MG TAB PO ONE; -methylPREDNISolone 40MG 1ML VIAL IV ONE
[2020-08-08] MEDS ORDERED: ACETAMINOPHEN 500 MG TAB PO ONE (07:00)
[2020-08-08] MEDS ORDERED: NS 1,000 ML IV SCH (07:00)
[2020-08-08] MEDS ORDERED: IMMUNE GLOBULIN 10% 5 GM in IV 1 EA IV ONE (07:00)
[2020-08-08] MEDS ORDERED: IMMUNE GLOBULIN 10% 40 GM in IV 1 EA IV ONE (07:00)
[2020-08-08] MEDS ORDERED: IMMUNE GLOBULIN 10% 20 GM in IV 1 EA IV ONE (07:00)
[2020-08-08] MEDS ORDERED: IMMUNE GLOBULIN 10% 10 GM in IV 1 EA IV ONE (07:00)
[2020-08-08] MEDS ORDERED: LORATADINE 10 MG TAB PO ONE (07:00)
[2020-08-08] MEDS ORDERED: methylPREDNISolone 40MG 1ML VIAL IV ONE (07:00)
[2020-08-08] MEDS ORDERED: ALBUTEROL SULFATE 2.5 MG/0.5 ML INH NEB SOLN INH PRN (07:01)
[2020-08-08] MEDS ORDERED: EPINEPHrine INJ 1 MG/ML 1ML AMP IM PRN (07:01)
[2020-08-08] MEDS ORDERED: methylPREDNISolone 125MG 2ML VIAL IV PRN (07:01)
[2020-08-08] MEDS ORDERED: diphenhydrAMINE 50MG/ML VIAL (J1200) IV PRN (07:01)
== END 2020-08-08 12:40 | disposition home or self-care (01) ==
LOC: M INFU 06:37
PROVIDERS: ATTEND Internal Medicine Rheumatology
DX: M33.19 Other dermatomyositis with other organ involvement (principal)
CPT/HCPCS: 96365; 96366; 96375; J1459; J2920

== ENCOUNTER 2020-08-09 10:06 | Outpatient (CLI) | payer BC ==
[~2020-08-09] VITALS: Ht 170.2 cm; Wt 76.7 kg
[~2020-08-09 10:06] MED LIST changes: +ACETAMINOPHEN 500 MG TAB PO ONE; +ALBUTEROL SULFATE 2.5 MG/0.5 ML INH NEB SOLN INH PRN; +EPINEPHrine INJ 1 MG/ML 1ML AMP IM PRN; +IMMUNE GLOBULIN 10% 10 GM in IV 1 EA IV ONE; +IMMUNE GLOBULIN 10% 20 GM in IV 1 EA IV ONE; +IMMUNE GLOBULIN 10% 40 GM in IV 1 EA IV ONE; +IMMUNE GLOBULIN 10% 5 GM in IV 1 EA IV ONE; +LORATADINE 10 MG TAB PO ONE; +diphenhydrAMINE 50MG/ML VIAL (J1200) IV PRN; +methylPREDNISolone 125MG 2ML VIAL IV PRN; +methylPREDNISolone 40MG 1ML VIAL IV ONE
[2020-08-09 10:20] VITALS: BP 160/85
[2020-08-09 11:45] VITALS: BP 146/84
[2020-08-09 12:15] VITALS: BP 143/78
[2020-08-09 13:15] VITALS: BP 154/74
[2020-08-09 15:30] VITALS: BP 136/68
== END 2020-08-09 15:45 | disposition home or self-care (01) ==
LOC: M INFU 10:06
PROVIDERS: ATTEND Internal Medicine Rheumatology
DX: M33.19 Other dermatomyositis with other organ involvement (principal)
CPT/HCPCS: 96365; 96366; J1459

== ENCOUNTER → 2020-08-22 | Outpatient (CLI) | payer BC ==
[~2020-08-22] MED LIST changes: -ACETAMINOPHEN 500 MG TAB PO ONE; -ALBUTEROL SULFATE 2.5 MG/0.5 ML INH NEB SOLN INH PRN; -EPINEPHrine INJ 1 MG/ML 1ML AMP IM PRN; -IMMUNE GLOBULIN 10% 10 GM in IV 1 EA IV ONE; -IMMUNE GLOBULIN 10% 20 GM in IV 1 EA IV ONE; -IMMUNE GLOBULIN 10% 40 GM in IV 1 EA IV ONE; -IMMUNE GLOBULIN 10% 5 GM in IV 1 EA IV ONE; -LORATADINE 10 MG TAB PO ONE; -diphenhydrAMINE 50MG/ML VIAL (J1200) IV PRN; -methylPREDNISolone 125MG 2ML VIAL IV PRN; -methylPREDNISolone 40MG 1ML VIAL IV ONE
--- NOTE | 2020-08-23 07:22 | PFTRPT ---
Site: [facility], [address] [place] [address], [id number] ID: [id number] Name: JACLYN SEQUEIRA Visit Date: 08/22/2020 Second ID: [id number] Referring Doctor: José Gupta M.D. Reviewing Doctor: Rich Christian MD Pharmacy Technician Infusion: Eliane YATES RRT Age: 54 : 1965 Sex: Female Race: Height: 67.00 Inches Weight: 178.00 Lbs BSA: 1.92 Order IDs: [id number] Requested Test(s): <RESP-PFT.PFT> Diagnosis: M33.90 test meet the ATS standards for acceptability and repeatability. Review Status: Not Reviewed Pre-Bronch Post-Bronch Pred Actual %Pred Actual %Chng SPIROMETRY FVC (L) 3.83 3.72 97 FEV1 (L) 3.01 2.92 96 FEV1/FVC (%) 79 78 99 FEF 25% (L/sec) 5.44 6.27 115 FEF 50% (L/sec) 3.81 3.44 90 FEF 75% (L/sec) 1.35 1.00 74 FEF 25-75% (L/sec) 2.78 2.51 90 FEF Max (L/sec) 7.06 6.73 95 FIVC (L) 3.71 FIF 50% (L/sec) 3.76 5.32 141 FIF Max (L/sec) 5.39 MVV (L/min) 101 116 114 Expiratory Time (sec) 6.71 Back Extrap Vol (L) 0.10 Time To FEFmax (sec) 0.093 LUNG VOLUMES SVC (L) 3.49 3.81 109 IC (L) 2.39 2.81 117 ERV (L) 1.10 0.99 90 TGV (L) 3.11 3.08 99 RV (Pleth) (L) 2.01 2.09 103 TLC (Pleth) (L) 5.50 5.90 107 RV/TLC (Pleth) (%) 37 35 95 DIFFUSION DLCOunc (ml/min/mmHg) 23.53 20.75 88 DL/VA (ml/min/mmHg/L) 4.28 3.76 87 VA (L) 5.50 5.52 100 BHT (sec) 10.02 IVC (L) 3.78 TLC (SB) (L) 5.67 AIRWAYS RESISTANCE Raw (cmH2O/L/s) 1.86 1.10 59 Gaw (L/s/cmH2O) 1.03 0.93 90 sRaw (cmH2O*s) 4.76 3.57 74 sGaw (1/cmH2O*s) 0.20 0.29 143
== END ==
LOC: M CARPUL 06:42
PROVIDERS: ATTEND Internal Medicine Rheumatology
DX: M33.90 Dermatopolymyositis, unspecified, organ involvement unspecified (principal)

== ENCOUNTER 2020-09-05 07:00 | Outpatient (CLI) | payer BC ==
[~2020-09-05] VITALS: Ht 170.2 cm; Wt 76.7 kg
[2020-09-05] VITALS (7 sets, daily range): BP systolic 117–134; BP diastolic 71–81
[~2020-09-05 07:00] MED LIST changes: +ACETAMINOPHEN 500 MG TAB PO ONE; +IMMUNE GLOBULIN 10% 10 GM in IV 1 EA IV ONE; +IMMUNE GLOBULIN 10% 20 GM in IV 1 EA IV ONE; +IMMUNE GLOBULIN 10% 40 GM in IV 1 EA IV ONE; +IMMUNE GLOBULIN 10% 5 GM in IV 1 EA IV ONE; +LORATADINE 10 MG TAB PO ONE; +methylPREDNISolone 125MG 2ML VIAL IV ONE
[2020-09-05] MEDS ORDERED: EPINEPHrine INJ 1 MG/ML 1ML AMP IM PRN (07:01)
[2020-09-05] MEDS ORDERED: methylPREDNISolone 125MG 2ML VIAL IV PRN (07:01)
[2020-09-05] MEDS ORDERED: ALBUTEROL SULFATE 2.5 MG/0.5 ML INH NEB SOLN INH PRN (07:01)
[2020-09-05] MEDS ORDERED: diphenhydrAMINE 50MG/ML VIAL (J1200) IV PRN (07:01)
== END 2020-09-05 12:30 | disposition home or self-care (01) ==
LOC: M INFU 07:00
PROVIDERS: ATTEND Internal Medicine Rheumatology
DX: M33.90 Dermatopolymyositis, unspecified, organ involvement unspecified (principal)
CPT/HCPCS: 96365; 96366; 96375; J1459; J2930

== ENCOUNTER 2020-09-06 07:01 | Outpatient (CLI) | payer BC ==
[~2020-09-06] VITALS: Ht 170.2 cm; Wt 76.7 kg
[2020-09-06] VITALS (8 sets, daily range): BP systolic 142–170; BP diastolic 72–87
[~2020-09-06 07:01] MED LIST changes: +ALBUTEROL SULFATE 2.5 MG/0.5 ML INH NEB SOLN INH PRN; +EPINEPHrine INJ 1 MG/ML 1ML AMP IM PRN; +diphenhydrAMINE 50MG/ML VIAL (J1200) IV PRN; +methylPREDNISolone 125MG 2ML VIAL IV PRN
== END 2020-09-06 12:35 | disposition home or self-care (01) ==
LOC: M INFU 07:01
PROVIDERS: ATTEND Internal Medicine Rheumatology
DX: M33.90 Dermatopolymyositis, unspecified, organ involvement unspecified (principal)
CPT/HCPCS: 96365; 96366; J1459; J2930

== ENCOUNTER → 2020-09-18 | Outpatient (CLI) | payer BC ==
[~2020-09-18] MED LIST changes: -ACETAMINOPHEN 500 MG TAB PO ONE; -ALBUTEROL SULFATE 2.5 MG/0.5 ML INH NEB SOLN INH PRN; -EPINEPHrine INJ 1 MG/ML 1ML AMP IM PRN; -IMMUNE GLOBULIN 10% 10 GM in IV 1 EA IV ONE; -IMMUNE GLOBULIN 10% 20 GM in IV 1 EA IV ONE; -IMMUNE GLOBULIN 10% 40 GM in IV 1 EA IV ONE; -IMMUNE GLOBULIN 10% 5 GM in IV 1 EA IV ONE; -LORATADINE 10 MG TAB PO ONE; -diphenhydrAMINE 50MG/ML VIAL (J1200) IV PRN; -methylPREDNISolone 125MG 2ML VIAL IV ONE; -methylPREDNISolone 125MG 2ML VIAL IV PRN
[2020-09-18 10:44] LABS: EOS # 0.1 10^3/uL (0.0-0.5); EOS % 1.7 % (0.0-3.0); HEMATOCRIT 40.2 % (36.0-47.0); HEMOGLOBIN 13.1 g/dl (12.0-15.5); LYMPH # 0.8 10^3/uL (1.5-5.0); LYMPH % 18.6 % (24.0-44.0); MEAN CORPUSCULAR HEMOGLOBIN 29.9 pg (27.0-33.0); MEAN CORPUSCULAR HGB CONC 32.6 g/dl (32.0-36.5); MEAN CORPUSCULAR VOLUME 91.8 fl (80.0-96.0); MONO # 0.4 10^3/uL (0.0-0.8); MONO % 9.4 % (2.0-8.0); NEUTROPHILS # 2.8 10^3/uL (1.5-8.5); NEUTROPHILS % 68.6 % (36.0-66.0); PLATELET COUNT, AUTOMATED 198 10^3/uL (150-450); RED BLOOD COUNT 4.38 10^6/uL (4.00-5.40)
[2020-09-18 11:09] LABS: ALBUMIN 3.3 GM/DL (3.2-5.2); ALT/SGPT 80 U/L (12-78); BILIRUBIN,TOTAL 0.3 MG/DL (0.2-1.0); BLOOD UREA NITROGEN 14 MG/DL (7-18); CALCIUM LEVEL 9.3 MG/DL (8.5-10.1); CARBON DIOXIDE LEVEL 29 MEQ/L (21-32); CHLORIDE LEVEL 108 MEQ/L (98-107); CPK CREATINE PHOSPHOKINASE 55 U/L (26-192); CREATININE FOR GFR 0.76 MG/DL (0.55-1.30); GLOMERULAR FILTRATION RATE > 60.0 (>51); GLUCOSE, FASTING 82 MG/DL (70-100); POTASSIUM SERUM 4.6 MEQ/L (3.5-5.1); SODIUM LEVEL 140 MEQ/L (136-145)
== END ==
LOC: M LAB 10:16
PROVIDERS: ATTEND Internal Medicine Rheumatology
DX: M33.10 Other dermatomyositis, organ involvement unspecified (principal)

== ENCOUNTER → 2020-09-24 | Outpatient (CLI) | payer BC ==
[2020-09-24 11:24] LABS: ALBUMIN 3.5 GM/DL (3.2-5.2); ALT/SGPT 53 U/L (12-78); BILIRUBIN,TOTAL 0.4 MG/DL (0.2-1.0); BLOOD UREA NITROGEN 15 MG/DL (7-18); CALCIUM LEVEL 8.9 MG/DL (8.5-10.1); CARBON DIOXIDE LEVEL 29 MEQ/L (21-32); CHLORIDE LEVEL 108 MEQ/L (98-107); CREATININE FOR GFR 0.77 MG/DL (0.55-1.30); GLOMERULAR FILTRATION RATE > 60.0 (>51); GLUCOSE, FASTING 79 MG/DL (70-100); POTASSIUM SERUM 4.3 MEQ/L (3.5-5.1); SODIUM LEVEL 140 MEQ/L (136-145); TOTAL PROTEIN 8.1 GM/DL (6.4-8.2)
== END ==
LOC: M LAB 09:43
PROVIDERS: ATTEND Physician Assistant
DX: E03.9 Hypothyroidism, unspecified (principal)

== ENCOUNTER 2020-10-10 07:07 | Outpatient (CLI) | payer BC ==
[2020-10-10] VITALS (8 sets, daily range): BP systolic 131–146; BP diastolic 76–84
[~2020-10-10] VITALS: Ht 170.2 cm; Wt 76.7 kg
[2020-10-10] MEDS: NS 1,000 ML IV SCH ×2 (07:30→07:45)
[2020-10-10] MEDS ORDERED: LORATADINE 10 MG TAB PO ONE (07:30)
[2020-10-10] MEDS ORDERED: diphenhydrAMINE 50MG/ML VIAL (J1200) IV PRN (07:30)
[2020-10-10] MEDS ORDERED: methylPREDNISolone 125MG 2ML VIAL IV PRN (07:30)
[2020-10-10] MEDS ORDERED: EPINEPHrine INJ 1 MG/ML 1ML AMP IM PRN (07:30)
[2020-10-10] MEDS ORDERED: ALBUTEROL SULFATE 2.5 MG/0.5 ML INH NEB SOLN INH PRN (07:30)
[2020-10-10] MEDS ORDERED: methylPREDNISolone 40MG 1ML VIAL IV ONE (07:30)
[2020-10-10] MEDS ORDERED: IMMUNE GLOBULIN 10% 20 GM in IV 1 EA IV ONE (07:30)
[2020-10-10] MEDS ORDERED: IMMUNE GLOBULIN 10% 5 GM in IV 1 EA IV ONE (07:30)
[2020-10-10] MEDS ORDERED: ACETAMINOPHEN 500 MG TAB PO ONE (07:30)
[2020-10-10] MEDS ORDERED: IMMUNE GLOBULIN 10% 10 GM in IV 1 EA IV ONE (07:30)
[2020-10-10] MEDS ORDERED: IMMUNE GLOBULIN 10% 40 GM in IV 1 EA IV ONE (07:30)
== END 2020-10-10 13:15 | disposition home or self-care (01) ==
LOC: M INFU 07:07
PROVIDERS: ATTEND Internal Medicine Rheumatology
DX: M33.90 Dermatopolymyositis, unspecified, organ involvement unspecified (principal)
CPT/HCPCS: 96365; 96366; J1459; J2920

== ENCOUNTER 2020-10-12 10:58 | Outpatient (CLI) | payer BC ==
[2020-10-12] VITALS (7 sets, daily range): BP systolic 134–149; BP diastolic 68–83
[~2020-10-12] VITALS: Ht 170.2 cm; Wt 76.7 kg
[~2020-10-12 10:58] MED LIST changes: +ALBUTEROL SULFATE 2.5 MG/0.5 ML INH NEB SOLN INH PRN; +EPINEPHrine INJ 1 MG/ML 1ML AMP IM PRN; +diphenhydrAMINE 50MG/ML VIAL (J1200) IV PRN; +methylPREDNISolone 125MG 2ML VIAL IV PRN
[2020-10-12] MEDS ORDERED: NS 1,000 ML IV SCH (11:05)
[2020-10-12] MEDS ORDERED: ACETAMINOPHEN TAB 650MG DOSE (2X325MG) PO ONE (11:30)
[2020-10-12] MEDS ORDERED: methylPREDNISolone 40MG 1ML VIAL IV ONE (11:30)
[2020-10-12] MEDS ORDERED: IMMUNE GLOBULIN 10% 40 GM in IV 1 EA IV ONE (12:00)
[2020-10-12] MEDS ORDERED: IMMUNE GLOBULIN 10% 10 GM in IV 1 EA IV ONE (12:00)
[2020-10-12] MEDS ORDERED: IMMUNE GLOBULIN 10% 5 GM in IV 1 EA IV ONE (12:00)
[2020-10-12] MEDS ORDERED: IMMUNE GLOBULIN 10% 20 GM in IV 1 EA IV ONE (12:00)
== END 2020-10-12 17:00 | disposition home or self-care (01) ==
LOC: M INFU 10:58
PROVIDERS: ATTEND Physician Assistant Medical
DX: M33.90 Dermatopolymyositis, unspecified, organ involvement unspecified (principal)
CPT/HCPCS: 96365; 96366; 96375; J1459; J2920

== ENCOUNTER 2020-11-12 06:45 | Outpatient (CLI) | payer BC ==
[~2020-11-12] VITALS: Ht 170.2 cm; Wt 76.6 kg
[2020-11-12] VITALS (7 sets, daily range): BP systolic 133–147; BP diastolic 79–94
[~2020-11-12 06:45] MED LIST changes: -ALBUTEROL SULFATE 2.5 MG/0.5 ML INH NEB SOLN INH PRN; -EPINEPHrine INJ 1 MG/ML 1ML AMP IM PRN; -diphenhydrAMINE 50MG/ML VIAL (J1200) IV PRN; -methylPREDNISolone 125MG 2ML VIAL IV PRN
[2020-11-12] MEDS ORDERED: ALBUTEROL SULFATE 2.5 MG/0.5 ML INH NEB SOLN INH PRN (07:01)
[2020-11-12] MEDS ORDERED: EPINEPHrine INJ 1 MG/ML 1ML AMP IM PRN (07:01)
[2020-11-12] MEDS ORDERED: methylPREDNISolone 125MG 2ML VIAL IV PRN (07:01)
[2020-11-12] MEDS ORDERED: diphenhydrAMINE 50MG/ML VIAL (J1200) IV PRN (07:01)
[2020-11-12] MEDS ORDERED: methylPREDNISolone 40MG 1ML VIAL IV ONE (07:30)
[2020-11-12] MEDS ORDERED: IMMUNE GLOBULIN 10% 10 GM in IV 1 EA IV ONE (07:30)
[2020-11-12] MEDS ORDERED: IMMUNE GLOBULIN 10% 40 GM in IV 1 EA IV ONE (07:30)
[2020-11-12] MEDS ORDERED: IMMUNE GLOBULIN 10% 5 GM in IV 1 EA IV ONE (07:30)
[2020-11-12] MEDS ORDERED: ACETAMINOPHEN TAB 650MG DOSE (2X325MG) PO ONE (07:30)
[2020-11-12] MEDS ORDERED: NS 1,000 ML IV SCH (07:30)
[2020-11-12] MEDS ORDERED: IMMUNE GLOBULIN 10% 20 GM in IV 1 EA IV ONE (07:30)
== END 2020-11-12 12:25 | disposition home or self-care (01) ==
LOC: M INFU 06:45
PROVIDERS: ATTEND Internal Medicine Rheumatology
DX: M33.90 Dermatopolymyositis, unspecified, organ involvement unspecified (principal)
CPT/HCPCS: 96365; 96366; J1459

== ENCOUNTER 2020-11-13 06:19 | Outpatient (CLI) | payer BC ==
[~2020-11-13] VITALS: Ht 167.6 cm; Wt 77.0 kg
[2020-11-13 06:58] VITALS: BP 137/81
[2020-11-13] MEDS ORDERED: NS 1,000 ML IV SCH (07:00)
[2020-11-13] MEDS ORDERED: methylPREDNISolone 40MG 1ML VIAL IV ONE (07:00)
[2020-11-13] MEDS ORDERED: IMMUNE GLOBULIN 10% 5 GM in IV 1 EA IV ONE (07:00)
[2020-11-13] MEDS ORDERED: IMMUNE GLOBULIN 10% 10 GM in IV 1 EA IV ONE (07:00)
[2020-11-13] MEDS ORDERED: ACETAMINOPHEN TAB 650MG DOSE (2X325MG) PO ONE (07:00)
[2020-11-13] MEDS ORDERED: IMMUNE GLOBULIN 10% 40 GM in IV 1 EA IV ONE (07:00)
[2020-11-13] MEDS ORDERED: IMMUNE GLOBULIN 10% 20 GM in IV 1 EA IV ONE (07:00)
[2020-11-13] MEDS ORDERED: EPINEPHrine INJ 1 MG/ML 1ML AMP IM PRN (07:01)
[2020-11-13] MEDS ORDERED: ALBUTEROL SULFATE 2.5 MG/0.5 ML INH NEB SOLN INH PRN (07:01)
[2020-11-13] MEDS ORDERED: methylPREDNISolone 125MG 2ML VIAL IV PRN (07:01)
[2020-11-13] MEDS ORDERED: diphenhydrAMINE 50MG/ML VIAL (J1200) IV PRN (07:01)
[2020-11-13 07:28] VITALS: BP 137/83
[2020-11-13 08:01] VITALS: BP 141/81
[2020-11-13 09:38] VITALS: BP 124/79
== END 2020-11-13 11:40 | disposition home or self-care (01) ==
LOC: M INFU 06:19
PROVIDERS: ATTEND Internal Medicine Rheumatology
DX: M33.90 Dermatopolymyositis, unspecified, organ involvement unspecified (principal)
CPT/HCPCS: 96365; 96366; J1459

== ENCOUNTER 2020-12-10 06:52 | Outpatient (CLI) | payer BC ==
[~2020-12-10] VITALS: Ht 170.2 cm; Wt 76.6 kg
[2020-12-10] MEDS ORDERED: IMMUNE GLOBULIN 10% 20 GM in IV 1 EA IV ONE (07:00)
[2020-12-10] MEDS ORDERED: IMMUNE GLOBULIN 10% 10 GM in IV 1 EA IV ONE (07:00)
[2020-12-10] MEDS ORDERED: IMMUNE GLOBULIN 10% 5 GM in IV 1 EA IV ONE (07:00)
[2020-12-10] MEDS ORDERED: methylPREDNISolone 40MG 1ML VIAL IV ONE (07:00)
[2020-12-10] MEDS ORDERED: NS 1,000 ML IV SCH (07:00)
[2020-12-10] MEDS ORDERED: IMMUNE GLOBULIN 10% 40 GM in IV 1 EA IV ONE (07:00)
[2020-12-10] MEDS ORDERED: ACETAMINOPHEN TAB 650MG DOSE (2X325MG) PO ONE (07:00)
[2020-12-10] MEDS ORDERED: diphenhydrAMINE 50MG/ML VIAL (J1200) IV PRN (07:01)
[2020-12-10] MEDS ORDERED: EPINEPHrine INJ 1 MG/ML 1ML AMP IM PRN (07:01)
[2020-12-10] MEDS ORDERED: methylPREDNISolone 125MG 2ML VIAL IV PRN (07:01)
[2020-12-10] MEDS ORDERED: ALBUTEROL SULFATE 2.5 MG/0.5 ML INH NEB SOLN INH PRN (07:01)
[2020-12-10 07:11] VITALS: BP 137/74
[2020-12-10 08:00] VITALS: BP 127/69
[2020-12-10 08:30] VITALS: BP 115/71
[2020-12-10 08:59] VITALS: BP 126/63
[2020-12-10 10:00] VITALS: BP 121/63
[2020-12-10 12:47] VITALS: BP 129/72
== END 2020-12-10 12:50 | disposition home or self-care (01) ==
LOC: M INFU 06:52
PROVIDERS: ATTEND Internal Medicine Rheumatology
DX: M33.10 Other dermatomyositis, organ involvement unspecified (principal)
CPT/HCPCS: 96365; 96366; 96375; J1459; J2920

== ENCOUNTER 2020-12-11 06:49 | Outpatient (CLI) | payer BC ==
[~2020-12-11] VITALS: Ht 167.6 cm; Wt 76.6 kg
[2020-12-11] MEDS ORDERED: methylPREDNISolone 125MG 2ML VIAL IV PRN (07:01)
[2020-12-11] MEDS ORDERED: ALBUTEROL SULFATE 2.5 MG/0.5 ML INH NEB SOLN INH PRN (07:01)
[2020-12-11] MEDS ORDERED: EPINEPHrine INJ 1 MG/ML 1ML AMP IM PRN (07:01)
[2020-12-11] MEDS ORDERED: diphenhydrAMINE 50MG/ML VIAL (J1200) IV PRN (07:01)
[2020-12-11 07:08] VITALS: BP 157/75
[2020-12-11] MEDS ORDERED: methylPREDNISolone 40MG 1ML VIAL IV ONE (07:30)
[2020-12-11] MEDS ORDERED: IMMUNE GLOBULIN 10% 5 GM in IV 1 EA IV ONE (07:30)
[2020-12-11] MEDS ORDERED: ACETAMINOPHEN TAB 650MG DOSE (2X325MG) PO ONE (07:30)
[2020-12-11] MEDS ORDERED: IMMUNE GLOBULIN 10% 40 GM in IV 1 EA IV ONE (07:30)
[2020-12-11] MEDS ORDERED: IMMUNE GLOBULIN 10% 20 GM in IV 1 EA IV ONE (07:30)
[2020-12-11] MEDS ORDERED: IMMUNE GLOBULIN 10% 10 GM in IV 1 EA IV ONE (07:30)
[2020-12-11 07:33] VITALS: BP 156/93
[2020-12-11 08:30] VITALS: BP 161/84
[2020-12-11 09:30] VITALS: BP 161/85
[2020-12-11 10:27] VITALS: BP 164/79
[2020-12-11 12:15] VITALS: BP 148/82
== END 2020-12-11 12:15 | disposition home or self-care (01) ==
LOC: M INFU 06:49
PROVIDERS: ATTEND Internal Medicine Rheumatology
DX: M33.10 Other dermatomyositis, organ involvement unspecified (principal)
CPT/HCPCS: 96365; 96366; J1459

== ENCOUNTER 2021-01-09 06:50 | Outpatient (CLI) | payer BC ==
[2021-01-09] VITALS (9 sets, daily range): BP systolic 129–169; BP diastolic 79–91
[~2021-01-09] VITALS: Ht 170.2 cm; Wt 76.7 kg
[2021-01-09] MEDS ORDERED: ALBUTEROL SULFATE 2.5 MG/0.5 ML INH NEB SOLN INH PRN (07:01)
[2021-01-09] MEDS ORDERED: diphenhydrAMINE 50MG/ML VIAL (J1200) IV PRN (07:01)
[2021-01-09] MEDS ORDERED: EPINEPHrine INJ 1 MG/ML 1ML AMP IM PRN (07:01)
[2021-01-09] MEDS ORDERED: methylPREDNISolone 125MG 2ML VIAL IV PRN (07:01)
[2021-01-09] MEDS ORDERED: IMMUNE GLOBULIN 10% 20 GM in IV 1 EA IV ONE (07:30)
[2021-01-09] MEDS ORDERED: methylPREDNISolone 40MG 1ML VIAL IV ONE (07:30)
[2021-01-09] MEDS ORDERED: ACETAMINOPHEN TAB 650MG DOSE (2X325MG) PO ONE (07:30)
[2021-01-09] MEDS ORDERED: IMMUNE GLOBULIN 10% 5 GM in IV 1 EA IV ONE (07:30)
[2021-01-09] MEDS ORDERED: NS 1,000 ML IV ONE (07:30)
[2021-01-09] MEDS ORDERED: IMMUNE GLOBULIN 10% 40 GM in IV 1 EA IV ONE (07:30)
[2021-01-09] MEDS ORDERED: IMMUNE GLOBULIN 10% 10 GM in IV 1 EA IV ONE (07:30)
== END 2021-01-09 13:00 | disposition home or self-care (01) ==
LOC: M INFU 06:50
PROVIDERS: ATTEND Internal Medicine Rheumatology
DX: M33.10 Other dermatomyositis, organ involvement unspecified (principal)
CPT/HCPCS: 96365; 96366; 96375; J1459; J2920

== ENCOUNTER 2021-01-10 06:38 | Outpatient (CLI) | payer BC ==
[~2021-01-10] VITALS: Ht 170.2 cm; Wt 76.9 kg
[2021-01-10] VITALS (8 sets, daily range): BP systolic 128–167; BP diastolic 68–87
[2021-01-10] MEDS ORDERED: IMMUNE GLOBULIN 10% 20 GM in IV 1 EA IV ONE (07:00)
[2021-01-10] MEDS ORDERED: IMMUNE GLOBULIN 10% 40 GM in IV 1 EA IV ONE (07:00)
[2021-01-10] MEDS ORDERED: IMMUNE GLOBULIN 10% 5 GM in IV 1 EA IV ONE (07:00)
[2021-01-10] MEDS ORDERED: NS 1,000 ML IV SCH (07:00)
[2021-01-10] MEDS ORDERED: methylPREDNISolone 40MG 1ML VIAL IV ONE (07:00)
[2021-01-10] MEDS ORDERED: ACETAMINOPHEN TAB 650MG DOSE (2X325MG) PO ONE (07:00)
[2021-01-10] MEDS ORDERED: IMMUNE GLOBULIN 10% 10 GM in IV 1 EA IV ONE (07:00)
[2021-01-10] MEDS ORDERED: methylPREDNISolone 125MG 2ML VIAL IV PRN (07:01)
[2021-01-10] MEDS ORDERED: EPINEPHrine INJ 1 MG/ML 1ML AMP IM PRN (07:01)
[2021-01-10] MEDS ORDERED: ALBUTEROL SULFATE 2.5 MG/0.5 ML INH NEB SOLN INH PRN (07:01)
[2021-01-10] MEDS ORDERED: diphenhydrAMINE 50MG/ML VIAL (J1200) IV PRN (07:01)
== END 2021-01-10 12:15 | disposition home or self-care (01) ==
LOC: M INFU 06:38
PROVIDERS: ATTEND Internal Medicine Rheumatology
DX: M33.10 Other dermatomyositis, organ involvement unspecified (principal)
CPT/HCPCS: 96365; 96366; J1459

== ENCOUNTER 2021-02-11 06:41 | Outpatient (CLI) | payer BC ==
[~2021-02-11] VITALS: Ht 170.2 cm; Wt 85.4 kg
[2021-02-11] MEDS ORDERED: IMMUNE GLOBULIN 10% 5 GM in IV 1 EA IV ONE (07:00)
[2021-02-11] MEDS ORDERED: ACETAMINOPHEN TAB 650MG DOSE (2X325MG) PO ONE (07:00)
[2021-02-11] MEDS ORDERED: IMMUNE GLOBULIN 10% 40 GM in IV 1 EA IV ONE (07:00)
[2021-02-11] MEDS ORDERED: methylPREDNISolone 125MG 2ML VIAL IV ONE (07:00)
[2021-02-11] MEDS ORDERED: IMMUNE GLOBULIN 10% 20 GM in IV 1 EA IV ONE (07:00)
[2021-02-11] MEDS ORDERED: IMMUNE GLOBULIN 10% 10 GM in IV 1 EA IV ONE (07:00)
[2021-02-11] MEDS ORDERED: diphenhydrAMINE 50MG/ML VIAL (J1200) IV PRN (07:01)
[2021-02-11] MEDS ORDERED: ALBUTEROL SULFATE 2.5 MG/0.5 ML INH NEB SOLN INH PRN (07:01)
[2021-02-11] MEDS ORDERED: methylPREDNISolone 125MG 2ML VIAL IV PRN (07:01)
[2021-02-11] MEDS ORDERED: EPINEPHrine INJ 1 MG/ML 1ML AMP IM PRN (07:01)
[2021-02-11 07:05] VITALS: BP 137/90
[2021-02-11 07:54] VITALS: BP 141/89
[2021-02-11 08:20] VITALS: BP 148/88
[2021-02-11 08:50] VITALS: BP 137/90
[2021-02-11 09:50] VITALS: BP 145/82
[2021-02-11 12:14] VITALS: BP 156/83
== END 2021-02-11 12:15 | disposition home or self-care (01) ==
LOC: M INFU 06:41
PROVIDERS: ATTEND Internal Medicine Rheumatology
DX: M33.10 Other dermatomyositis, organ involvement unspecified (principal)
CPT/HCPCS: 96365; 96366; J1459

== ENCOUNTER 2021-02-12 06:39 | Outpatient (CLI) | payer BC ==
[~2021-02-12] VITALS: Ht 200.7 cm; Wt 84.0 kg
[~2021-02-12 06:39] MED LIST changes: +ACETAMINOPHEN TAB 650MG DOSE (2X325MG) PO ONE; +ALBUTEROL SULFATE 2.5 MG/0.5 ML INH NEB SOLN INH PRN; +EPINEPHrine INJ 1 MG/ML 1ML AMP IM PRN; +IMMUNE GLOBULIN 10% 10 GM in IV 1 EA IV ONE; +IMMUNE GLOBULIN 10% 20 GM in IV 1 EA IV ONE; +IMMUNE GLOBULIN 10% 40 GM in IV 1 EA IV ONE; +IMMUNE GLOBULIN 10% 5 GM in IV 1 EA IV ONE; +NS 1,000 ML IV SCH; +diphenhydrAMINE 50MG/ML VIAL (J1200) IV PRN; +methylPREDNISolone 125MG 2ML VIAL IV PRN; +methylPREDNISolone 40MG 1ML VIAL IV ONE
[2021-02-12] MEDS ORDERED: methylPREDNISolone 125MG 2ML VIAL IV PRN (07:00)
[2021-02-12] MEDS ORDERED: IMMUNE GLOBULIN 10% 10 GM in IV 1 EA IV ONE (07:00)
[2021-02-12] MEDS ORDERED: IMMUNE GLOBULIN 10% 5 GM in IV 1 EA IV ONE (07:00)
[2021-02-12] MEDS ORDERED: ALBUTEROL SULFATE 2.5 MG/0.5 ML INH NEB SOLN INH PRN (07:00)
[2021-02-12] MEDS ORDERED: IMMUNE GLOBULIN 10% 20 GM in IV 1 EA IV ONE (07:00)
[2021-02-12] MEDS ORDERED: NS 1,000 ML IV SCH (07:00)
[2021-02-12] MEDS ORDERED: diphenhydrAMINE 50MG/ML VIAL (J1200) IV PRN (07:00)
[2021-02-12] MEDS ORDERED: methylPREDNISolone 40MG 1ML VIAL IV ONE (07:00)
[2021-02-12] MEDS ORDERED: IMMUNE GLOBULIN 10% 40 GM in IV 1 EA IV ONE (07:00)
[2021-02-12] MEDS ORDERED: ACETAMINOPHEN TAB 650MG DOSE (2X325MG) PO ONE (07:00)
[2021-02-12] MEDS ORDERED: EPINEPHrine INJ 1 MG/ML 1ML AMP IM PRN (07:00)
[2021-02-12 07:10] VITALS: BP 145/94
[2021-02-12 07:49] VITALS: BP 141/83
[2021-02-12 08:23] VITALS: BP 161/88
[2021-02-12 08:55] VITALS: BP 157/79
[2021-02-12 12:28] VITALS: BP 160/83
== END 2021-02-12 12:30 | disposition home or self-care (01) ==
LOC: M INFU 06:39
PROVIDERS: ATTEND Internal Medicine Rheumatology
DX: M33.10 Other dermatomyositis, organ involvement unspecified (principal)
CPT/HCPCS: 96365; 96366; 96375; J1459; J2920

== ENCOUNTER → 2021-03-04 | Outpatient (CLI) | payer BC ==
[~2021-03-04] MED LIST changes: -ACETAMINOPHEN TAB 650MG DOSE (2X325MG) PO ONE; -ALBUTEROL SULFATE 2.5 MG/0.5 ML INH NEB SOLN INH PRN; -EPINEPHrine INJ 1 MG/ML 1ML AMP IM PRN; -IMMUNE GLOBULIN 10% 10 GM in IV 1 EA IV ONE; -IMMUNE GLOBULIN 10% 20 GM in IV 1 EA IV ONE; -IMMUNE GLOBULIN 10% 40 GM in IV 1 EA IV ONE; -IMMUNE GLOBULIN 10% 5 GM in IV 1 EA IV ONE; -NS 1,000 ML IV SCH; -diphenhydrAMINE 50MG/ML VIAL (J1200) IV PRN; -methylPREDNISolone 125MG 2ML VIAL IV PRN; -methylPREDNISolone 40MG 1ML VIAL IV ONE
[2021-03-04 07:53] LABS: BASO % 0.9 % (0.0-1.0); EOS # 0.1 10^3/uL (0.0-0.5); HEMATOCRIT 40.7 % (36.0-47.0); LYMPH % 27.3 % (24.0-44.0); MEAN CORPUSCULAR HEMOGLOBIN 28.7 pg (27.0-33.0); MEAN CORPUSCULAR HGB CONC 31.9 g/dl (32.0-36.5); MEAN CORPUSCULAR VOLUME 89.8 fl (80.0-96.0); MONO # 0.3 10^3/uL (0.0-0.8); MONO % 8.6 % (2.0-8.0); NEUTROPHILS # 2.1 10^3/uL (1.5-8.5); NEUTROPHILS % 60.9 % (36.0-66.0); PLATELET COUNT, AUTOMATED 274 10^3/uL (150-450); RED BLOOD COUNT 4.53 10^6/uL (4.00-5.40); WHITE BLOOD COUNT 3.5 10^3/uL (4.0-10.0)
[2021-03-04 08:16] LABS: ALBUMIN 3.5 GM/DL (3.2-5.2); ALT/SGPT 33 U/L (12-78); BILIRUBIN,TOTAL 0.3 MG/DL (0.2-1.0); BLOOD UREA NITROGEN 26 MG/DL (7-18); CALCIUM LEVEL 9.3 MG/DL (8.5-10.1); CARBON DIOXIDE LEVEL 28 MEQ/L (21-32); CHLORIDE LEVEL 106 MEQ/L (98-107); CREATININE FOR GFR 0.94 MG/DL (0.55-1.30); GLOMERULAR FILTRATION RATE > 60.0 (>51); GLUCOSE, FASTING 84 MG/DL (70-100); POTASSIUM SERUM 4.5 MEQ/L (3.5-5.1); SODIUM LEVEL 139 MEQ/L (136-145); TOTAL PROTEIN 8.2 GM/DL (6.4-8.2)
== END ==
LOC: M LAB 06:42
PROVIDERS: ATTEND Physician Assistant Medical
DX: M33.10 Other dermatomyositis, organ involvement unspecified (principal)

== ENCOUNTER → 2021-03-04 | Outpatient (CLI) | payer BC ==
[2021-03-04 08:20] LABS: BLOOD UREA NITROGEN 26 MG/DL (7-18); CREATININE FOR GFR 0.94 MG/DL (0.55-1.30); GLOMERULAR FILTRATION RATE > 60.0 (>51); GLUCOSE, FASTING 84 MG/DL (70-100); SODIUM LEVEL 139 MEQ/L (136-145)
[2021-03-04 08:21] LABS: ALBUMIN 3.5 GM/DL (3.2-5.2); ALT/SGPT 33 IU/L (0-32); BILIRUBIN,TOTAL 0.3 MG/DL (0.2-1.0); CALCIUM LEVEL 9.3 MG/DL (8.5-10.1); CARBON DIOXIDE LEVEL 28 mmol/L (20-29); CHLORIDE LEVEL 106 MEQ/L (98-107); POTASSIUM SERUM 4.5 MEQ/L (3.5-5.1); TOTAL PROTEIN 8.2 GM/DL (6.4-8.2)
== END ==
LOC: M LAB 06:39
PROVIDERS: ATTEND Dermatology
DX: M33.90 Dermatopolymyositis, unspecified, organ involvement unspecified (principal)

== ENCOUNTER 2021-03-12 06:55 | Outpatient (CLI) | payer BC ==
[~2021-03-12] VITALS: Ht 170.2 cm; Wt 76.7 kg
[2021-03-12] VITALS (7 sets, daily range): BP systolic 128–157; BP diastolic 68–92
[2021-03-12] MEDS ORDERED: IMMUNE GLOBULIN 10% 20 GM in IV 1 EA IV ONE (07:00)
[2021-03-12] MEDS ORDERED: NS 1,000 ML IV SCH (07:00)
[2021-03-12] MEDS ORDERED: ACETAMINOPHEN TAB 650MG DOSE (2X325MG) PO ONE (07:00)
[2021-03-12] MEDS ORDERED: IMMUNE GLOBULIN 10% 10 GM in IV 1 EA IV ONE (07:00)
[2021-03-12] MEDS ORDERED: IMMUNE GLOBULIN 10% 5 GM in IV 1 EA IV ONE (07:00)
[2021-03-12] MEDS ORDERED: IMMUNE GLOBULIN 10% 40 GM in IV 1 EA IV ONE (07:00)
[2021-03-12] MEDS ORDERED: methylPREDNISolone 40MG 1ML VIAL IV ONE (07:00)
[2021-03-12] MEDS ORDERED: diphenhydrAMINE 50MG/ML VIAL (J1200) IV PRN (07:01)
[2021-03-12] MEDS ORDERED: methylPREDNISolone 125MG 2ML VIAL IV PRN (07:01)
[2021-03-12] MEDS ORDERED: ALBUTEROL SULFATE 2.5 MG/0.5 ML INH NEB SOLN INH PRN (07:01)
[2021-03-12] MEDS ORDERED: EPINEPHrine INJ 1 MG/ML 1ML AMP IM PRN (07:01)
== END 2021-03-12 12:30 | disposition home or self-care (01) ==
LOC: M INFU 06:55
PROVIDERS: ATTEND Internal Medicine Rheumatology
DX: M33.10 Other dermatomyositis, organ involvement unspecified (principal)
CPT/HCPCS: 96365; 96366; J1459

== ENCOUNTER 2021-03-13 06:34 | Outpatient (CLI) | payer BC ==
[~2021-03-13] VITALS: Ht 170.2 cm; Wt 84.1 kg
[2021-03-13 06:45] VITALS: BP 144/85
[2021-03-13] MEDS ORDERED: ALBUTEROL SULFATE 2.5 MG/0.5 ML INH NEB SOLN INH PRN (07:01)
[2021-03-13] MEDS ORDERED: diphenhydrAMINE 50MG/ML VIAL (J1200) IV PRN (07:01)
[2021-03-13] MEDS ORDERED: EPINEPHrine INJ 1 MG/ML 1ML AMP IM PRN (07:01)
[2021-03-13] MEDS ORDERED: methylPREDNISolone 125MG 2ML VIAL IV PRN (07:01)
[2021-03-13] MEDS ORDERED: methylPREDNISolone 40MG 1ML VIAL IV ONE (07:15)
[2021-03-13] MEDS ORDERED: IMMUNE GLOBULIN 10% 10 GM in IV 1 EA IV ONE (07:15)
[2021-03-13] MEDS ORDERED: NS 1,000 ML IV SCH (07:15)
[2021-03-13] MEDS ORDERED: IMMUNE GLOBULIN 10% 40 GM in IV 1 EA IV ONE (07:15)
[2021-03-13] MEDS ORDERED: IMMUNE GLOBULIN 10% 5 GM in IV 1 EA IV ONE (07:15)
[2021-03-13] MEDS ORDERED: ACETAMINOPHEN TAB 650MG DOSE (2X325MG) PO ONE (07:15)
[2021-03-13] MEDS: IMMUNE GLOBULIN 10% 20 GM in IV 1 EA IV ONE ×2 (07:19→07:24)
[2021-03-13 07:47] VITALS: BP 158/93
[2021-03-13 08:25] VITALS: BP 158/85
[2021-03-13 09:30] VITALS: BP 132/78
[2021-03-13 10:30] VITALS: BP 170/81
[2021-03-13 12:20] VITALS: BP 158/80
== END 2021-03-13 12:20 | disposition home or self-care (01) ==
LOC: M INFU 06:34
PROVIDERS: ATTEND Internal Medicine Rheumatology
DX: M33.10 Other dermatomyositis, organ involvement unspecified (principal)
CPT/HCPCS: 96365; 96366; J1459

== ENCOUNTER → 2021-03-19 | Outpatient (CLI) | payer BC ==
[~2021-03-19] MED LIST changes: +ISOVUE-370 76% 100ML VIAL As Ordered ONE
== END ==
LOC: M RAD 07:28
PROVIDERS: ATTEND Dermatology
DX: M33.90 Dermatopolymyositis, unspecified, organ involvement unspecified (principal); I70.0 Atherosclerosis of aorta
CPT/HCPCS: 72193; Q9967

== ENCOUNTER 2021-04-10 06:45 | Outpatient (CLI) | payer BC ==
[~2021-04-10] VITALS: Ht 170.2 cm; Wt 76.6 kg
[2021-04-10] VITALS (8 sets, daily range): BP systolic 124–150; BP diastolic 70–90
[~2021-04-10 06:45] MED LIST changes: -D31000TA2 PO; -ISOVUE-370 76% 100ML VIAL As Ordered ONE; +VITA100093 PO
[2021-04-10] MEDS ORDERED: EPINEPHrine INJ 1 MG/ML 1ML AMP IM PRN (07:01)
[2021-04-10] MEDS ORDERED: ALBUTEROL SULFATE 2.5 MG/0.5 ML INH NEB SOLN INH PRN (07:01)
[2021-04-10] MEDS ORDERED: methylPREDNISolone 125MG 2ML VIAL IV PRN (07:01)
[2021-04-10] MEDS ORDERED: diphenhydrAMINE 50MG/ML VIAL (J1200) IV PRN (07:01)
[2021-04-10] MEDS ORDERED: NS 1,000 ML IV SCH (07:05)
[2021-04-10] MEDS ORDERED: IMMUNE GLOBULIN 10% 5 GM in IV 1 EA IV ONE (07:05)
[2021-04-10] MEDS ORDERED: IMMUNE GLOBULIN 10% 40 GM in IV 1 EA IV ONE (07:05)
[2021-04-10] MEDS ORDERED: methylPREDNISolone 40MG 1ML VIAL IV ONE (07:05)
[2021-04-10] MEDS ORDERED: IMMUNE GLOBULIN 10% 20 GM in IV 1 EA IV ONE (07:05)
[2021-04-10] MEDS ORDERED: ACETAMINOPHEN TAB 650MG DOSE (2X325MG) PO ONE (07:05)
[2021-04-10] MEDS ORDERED: IMMUNE GLOBULIN 10% 10 GM in IV 1 EA IV ONE (07:05)
== END 2021-04-10 13:00 | disposition home or self-care (01) ==
LOC: M INFU 06:45
PROVIDERS: ATTEND Internal Medicine Rheumatology
DX: M33.10 Other dermatomyositis, organ involvement unspecified (principal)
CPT/HCPCS: 96365; 96366; J1459

== ENCOUNTER 2021-04-11 09:00 | Outpatient (CLI) | payer BC ==
[~2021-04-11] VITALS: Ht 170.2 cm; Wt 76.0 kg
[~2021-04-11 09:00] MED LIST changes: +ALBUTEROL SULFATE 2.5 MG/0.5 ML INH NEB SOLN INH PRN; +EPINEPHrine INJ 1 MG/ML 1ML AMP IM PRN; +diphenhydrAMINE 50MG/ML VIAL (J1200) IV PRN; +methylPREDNISolone 125MG 2ML VIAL IV PRN
[2021-04-11] MEDS ORDERED: IMMUNE GLOBULIN 10% 5 GM in IV 1 EA IV ONE (09:30)
[2021-04-11] MEDS ORDERED: NS 1,000 ML IV SCH (09:30)
[2021-04-11] MEDS ORDERED: IMMUNE GLOBULIN 10% 40 GM in IV 1 EA IV ONE (09:30)
[2021-04-11] MEDS ORDERED: IMMUNE GLOBULIN 10% 10 GM in IV 1 EA IV ONE (09:30)
[2021-04-11] MEDS ORDERED: methylPREDNISolone 125MG 2ML VIAL IV ONE (09:30)
[2021-04-11] MEDS ORDERED: diphenhydrAMINE 25MG CAP PO ONE (09:30)
[2021-04-11] MEDS ORDERED: IMMUNE GLOBULIN 10% 20 GM in IV 1 EA IV ONE (09:30)
[2021-04-11] MEDS ORDERED: ACETAMINOPHEN TAB 650MG DOSE (2X325MG) PO ONE (09:30)
[2021-04-11 09:37] VITALS: BP 118/71
[2021-04-11 10:00] VITALS: BP 136/86
[2021-04-11 11:00] VITALS: BP 144/88
[2021-04-11 12:00] VITALS: BP 157/86
[2021-04-11 14:45] VITALS: BP 138/72
== END 2021-04-11 14:45 | disposition home or self-care (01) ==
LOC: M INFU 09:00
PROVIDERS: ATTEND Internal Medicine Rheumatology
DX: M33.90 Dermatopolymyositis, unspecified, organ involvement unspecified (principal)
CPT/HCPCS: 96365; 96366; G0463; J1459

== ENCOUNTER 2021-05-13 07:17 | Outpatient (CLI) | payer BC ==
[2021-05-13] VITALS (7 sets, daily range): BP systolic 130–162; BP diastolic 73–86
[~2021-05-13] VITALS: Ht 170.2 cm; Wt 76.0 kg
[~2021-05-13 07:17] MED LIST changes: +NS 1,000 ML IV SCH; +methylPREDNISolone 125MG 2ML VIAL IV ONE
[2021-05-13] MEDS ORDERED: diphenhydrAMINE 25MG CAP PO ONE (07:30)
[2021-05-13] MEDS ORDERED: NS 1,000 ML IV SCH (07:30)
[2021-05-13] MEDS ORDERED: methylPREDNISolone 125MG 2ML VIAL IV ONE (07:30)
[2021-05-13] MEDS ORDERED: ACETAMINOPHEN TAB 650MG DOSE (2X325MG) PO ONE (07:30)
[2021-05-13] MEDS ORDERED: IMMUNE GLOBULIN 10% 5 GM in IV 1 EA IV ONE (08:00)
[2021-05-13] MEDS ORDERED: IMMUNE GLOBULIN 10% 20 GM in IV 1 EA IV ONE (08:00)
[2021-05-13] MEDS ORDERED: IMMUNE GLOBULIN 10% 40 GM in IV 1 EA IV ONE (08:00)
[2021-05-13] MEDS ORDERED: IMMUNE GLOBULIN 10% 10 GM in IV 1 EA IV ONE (08:00)
== END 2021-05-13 13:10 | disposition home or self-care (01) ==
LOC: M INFU 07:17
PROVIDERS: ATTEND Internal Medicine Rheumatology
DX: M33.90 Dermatopolymyositis, unspecified, organ involvement unspecified (principal)
CPT/HCPCS: 96365; 96366; J1459

== ENCOUNTER 2021-05-14 06:52 | Outpatient (CLI) | payer BC ==
[~2021-05-14] VITALS: Ht 170.2 cm; Wt 76.7 kg
[2021-05-14] VITALS (7 sets, daily range): BP systolic 127–163; BP diastolic 68–83
[~2021-05-14 06:52] MED LIST changes: -ALBUTEROL SULFATE 2.5 MG/0.5 ML INH NEB SOLN INH PRN; -EPINEPHrine INJ 1 MG/ML 1ML AMP IM PRN; -NS 1,000 ML IV SCH; -diphenhydrAMINE 50MG/ML VIAL (J1200) IV PRN; -methylPREDNISolone 125MG 2ML VIAL IV ONE; -methylPREDNISolone 125MG 2ML VIAL IV PRN
[2021-05-14] MEDS ORDERED: IMMUNE GLOBULIN 10% 10 GM in IV 1 EA IV ONE (06:55)
[2021-05-14] MEDS ORDERED: IMMUNE GLOBULIN 10% 40 GM in IV 1 EA IV ONE (06:55)
[2021-05-14] MEDS ORDERED: IMMUNE GLOBULIN 10% 20 GM in IV 1 EA IV ONE (06:55)
[2021-05-14] MEDS ORDERED: IMMUNE GLOBULIN 10% 5 GM in IV 1 EA IV ONE (06:55)
[2021-05-14] MEDS ORDERED: NS 1,000 ML IV SCH (07:00)
[2021-05-14] MEDS ORDERED: diphenhydrAMINE 25MG CAP PO ONE (07:00)
[2021-05-14] MEDS ORDERED: methylPREDNISolone 125MG 2ML VIAL IV ONE (07:00)
[2021-05-14] MEDS ORDERED: ACETAMINOPHEN TAB 650MG DOSE (2X325MG) PO ONE (07:00)
[2021-05-14] MEDS ORDERED: methylPREDNISolone 125MG 2ML VIAL IV PRN (07:01)
[2021-05-14] MEDS ORDERED: diphenhydrAMINE 50MG/ML VIAL (J1200) IV PRN (07:01)
[2021-05-14] MEDS ORDERED: ALBUTEROL SULFATE 2.5 MG/0.5 ML INH NEB SOLN INH PRN (07:01)
[2021-05-14] MEDS ORDERED: EPINEPHrine INJ 1 MG/ML 1ML AMP IM PRN (07:01)
== END 2021-05-14 12:30 | disposition home or self-care (01) ==
LOC: M INFU 06:52
PROVIDERS: ATTEND Internal Medicine Rheumatology
DX: M33.90 Dermatopolymyositis, unspecified, organ involvement unspecified (principal)
CPT/HCPCS: 96365; 96366; J1459

== ENCOUNTER 2021-06-10 06:57 | Outpatient (CLI) | payer BC ==
[~2021-06-10] VITALS: Ht 170.2 cm; Wt 76.0 kg
[2021-06-10 07:00] VITALS: BP 129/88
[2021-06-10] MEDS ORDERED: diphenhydrAMINE 25MG CAP PO ONE (07:00)
[2021-06-10] MEDS ORDERED: IMMUNE GLOBULIN 10% 20 GM in IV 1 EA IV ONE (07:00)
[2021-06-10] MEDS ORDERED: IMMUNE GLOBULIN 10% 40 GM in IV 1 EA IV ONE (07:00)
[2021-06-10] MEDS ORDERED: IMMUNE GLOBULIN 10% 10 GM in IV 1 EA IV ONE (07:00)
[2021-06-10] MEDS ORDERED: methylPREDNISolone 125MG 2ML VIAL IV PRN (07:00)
[2021-06-10] MEDS ORDERED: NS 1,000 ML IV SCH (07:00)
[2021-06-10] MEDS ORDERED: EPINEPHrine INJ 1 MG/ML 1ML AMP IM PRN (07:00)
[2021-06-10] MEDS ORDERED: ACETAMINOPHEN TAB 650MG DOSE (2X325MG) PO ONE (07:00)
[2021-06-10] MEDS ORDERED: ALBUTEROL SULFATE 2.5 MG/0.5 ML INH NEB SOLN INH PRN (07:00)
[2021-06-10] MEDS ORDERED: diphenhydrAMINE 50MG/ML VIAL (J1200) IV PRN (07:00)
[2021-06-10] MEDS ORDERED: IMMUNE GLOBULIN 10% 5 GM in IV 1 EA IV ONE (07:00)
[2021-06-10] MEDS ORDERED: methylPREDNISolone 125MG 2ML VIAL IV ONE (07:00)
[2021-06-10 07:42] VITALS: BP 125/83
[2021-06-10 08:45] VITALS: BP 133/89
[2021-06-10 09:45] VITALS: BP 157/89
[2021-06-10 12:58] VITALS: BP 145/80
== END 2021-06-10 13:00 | disposition home or self-care (01) ==
LOC: M INFU 06:57
PROVIDERS: ATTEND Internal Medicine Rheumatology
DX: M33.90 Dermatopolymyositis, unspecified, organ involvement unspecified (principal)
CPT/HCPCS: 96365; 96366; J1459

== ENCOUNTER 2021-06-11 06:38 | Outpatient (CLI) | payer BC ==
[~2021-06-11] VITALS: Ht 170.2 cm; Wt 76.0 kg
[2021-06-11] VITALS (7 sets, daily range): BP systolic 134–168; BP diastolic 79–96
[2021-06-11] MEDS ORDERED: IMMUNE GLOBULIN 10% 20 GM in IV 1 EA IV ONE (07:30)
[2021-06-11] MEDS ORDERED: IMMUNE GLOBULIN 10% 10 GM in IV 1 EA IV ONE (07:30)
[2021-06-11] MEDS ORDERED: IMMUNE GLOBULIN 10% 40 GM in IV 1 EA IV ONE (07:30)
[2021-06-11] MEDS ORDERED: NS 1,000 ML IV SCH (07:30)
[2021-06-11] MEDS ORDERED: IMMUNE GLOBULIN 10% 5 GM in IV 1 EA IV ONE (07:30)
[2021-06-11] MEDS ORDERED: methylPREDNISolone 125MG 2ML VIAL IV PRN (07:30)
[2021-06-11] MEDS ORDERED: diphenhydrAMINE 50MG/ML VIAL (J1200) IV PRN (07:30)
[2021-06-11] MEDS ORDERED: ACETAMINOPHEN TAB 650MG DOSE (2X325MG) PO ONE (07:30)
[2021-06-11] MEDS ORDERED: ALBUTEROL SULFATE 2.5 MG/0.5 ML INH NEB SOLN INH PRN (07:30)
[2021-06-11] MEDS ORDERED: EPINEPHrine INJ 1 MG/ML 1ML AMP IM PRN (07:30)
[2021-06-11] MEDS ORDERED: methylPREDNISolone 125MG 2ML VIAL IV ONE (07:30)
[2021-06-11] MEDS ORDERED: diphenhydrAMINE 25MG CAP PO ONE (07:30)
== END 2021-06-11 12:10 | disposition home or self-care (01) ==
LOC: M INFU 06:38
PROVIDERS: ATTEND Internal Medicine Rheumatology
DX: M33.90 Dermatopolymyositis, unspecified, organ involvement unspecified (principal)
CPT/HCPCS: 96365; 96366; J1459

== ENCOUNTER 2021-07-10 06:38 | Outpatient (CLI) | payer BC ==
[~2021-07-10] VITALS: Ht 170.2 cm; Wt 76.0 kg
[~2021-07-10 06:38] MED LIST changes: +EXCETAB32 PO; -EXCETAB33 PO
[2021-07-10 06:45] VITALS: BP 140/83
[2021-07-10] MEDS ORDERED: diphenhydrAMINE 25MG CAP PO ONE (07:00)
[2021-07-10] MEDS ORDERED: IMMUNE GLOBULIN 10% 40 GM in IV 1 EA IV ONE (07:00)
[2021-07-10] MEDS ORDERED: IMMUNE GLOBULIN 10% 10 GM in IV 1 EA IV ONE (07:00)
[2021-07-10] MEDS ORDERED: IMMUNE GLOBULIN 10% 5 GM in IV 1 EA IV ONE (07:00)
[2021-07-10] MEDS ORDERED: ACETAMINOPHEN TAB 650MG DOSE (2X325MG) PO ONE (07:00)
[2021-07-10] MEDS ORDERED: methylPREDNISolone 125MG 2ML VIAL IV ONE (07:00)
[2021-07-10] MEDS ORDERED: NS 1,000 ML IV SCH (07:00)
[2021-07-10] MEDS ORDERED: IMMUNE GLOBULIN 10% 20 GM in IV 1 EA IV ONE (07:00)
[2021-07-10] MEDS ORDERED: diphenhydrAMINE 50MG/ML VIAL (J1200) IV PRN (07:01)
[2021-07-10] MEDS ORDERED: methylPREDNISolone 125MG 2ML VIAL IV PRN (07:01)
[2021-07-10] MEDS ORDERED: ALBUTEROL SULFATE 2.5 MG/0.5 ML INH NEB SOLN INH PRN (07:01)
[2021-07-10] MEDS ORDERED: EPINEPHrine INJ 1 MG/ML 1ML AMP IM PRN (07:01)
[2021-07-10 07:30] VITALS: BP 154/93
[2021-07-10 08:00] VITALS: BP 163/94
[2021-07-10 08:30] VITALS: BP 146/82
[2021-07-10 10:00] VITALS: BP 139/88
[2021-07-10 12:45] VITALS: BP 170/91
== END 2021-07-10 12:45 | disposition home or self-care (01) ==
LOC: M INFU 06:38
PROVIDERS: ATTEND Internal Medicine Rheumatology
DX: M33.90 Dermatopolymyositis, unspecified, organ involvement unspecified (principal)
CPT/HCPCS: 96365; 96366; J1459

== ENCOUNTER 2021-07-11 07:28 | Outpatient (CLI) | payer BC ==
[2021-07-11] VITALS (9 sets, daily range): BP systolic 126–173; BP diastolic 78–93
[~2021-07-11] VITALS: Ht 170.2 cm; Wt 86.3 kg
[~2021-07-11 07:28] MED LIST changes: +ALBUTEROL SULFATE 2.5 MG/0.5 ML INH NEB SOLN INH PRN; +EPINEPHrine INJ 1 MG/ML 1ML AMP IM PRN; +diphenhydrAMINE 50MG/ML VIAL (J1200) IV PRN; +methylPREDNISolone 125MG 2ML VIAL IV PRN
[2021-07-11] MEDS ORDERED: IMMUNE GLOBULIN 10% 10 GM in IV 1 EA IV ONE (07:30)
[2021-07-11] MEDS ORDERED: methylPREDNISolone 125MG 2ML VIAL IV ONE (07:30)
[2021-07-11] MEDS ORDERED: IMMUNE GLOBULIN 10% 5 GM in IV 1 EA IV ONE (07:30)
[2021-07-11] MEDS ORDERED: IMMUNE GLOBULIN 10% 40 GM in IV 1 EA IV ONE (07:30)
[2021-07-11] MEDS ORDERED: diphenhydrAMINE 25MG CAP PO ONE (07:30)
[2021-07-11] MEDS ORDERED: IMMUNE GLOBULIN 10% 20 GM in IV 1 EA IV ONE (07:30)
[2021-07-11] MEDS ORDERED: ACETAMINOPHEN TAB 650MG DOSE (2X325MG) PO ONE (07:30)
[2021-07-11] MEDS ORDERED: NS 1,000 ML IV SCH (07:30)
== END 2021-07-11 13:30 | disposition home or self-care (01) ==
LOC: M INFU 07:28
PROVIDERS: ATTEND Internal Medicine Rheumatology
DX: M33.90 Dermatopolymyositis, unspecified, organ involvement unspecified (principal)
CPT/HCPCS: 96365; 96366; J1459

== ENCOUNTER → 2021-07-26 | Outpatient (CLI) | payer BC ==
[~2021-07-26] MED LIST changes: -ALBUTEROL SULFATE 2.5 MG/0.5 ML INH NEB SOLN INH PRN; -EPINEPHrine INJ 1 MG/ML 1ML AMP IM PRN; -diphenhydrAMINE 50MG/ML VIAL (J1200) IV PRN; -methylPREDNISolone 125MG 2ML VIAL IV PRN
== END ==
LOC: M WHC 07:05
PROVIDERS: ATTEND Internal Medicine Rheumatology
DX: M33.90 Dermatopolymyositis, unspecified, organ involvement unspecified (principal)

== ENCOUNTER 2021-08-13 06:55 | Outpatient (CLI) | payer BC ==
[~2021-08-13] VITALS: Ht 170.2 cm; Wt 76.0 kg
[2021-08-13 07:00] VITALS: BP 138/78
[2021-08-13] MEDS ORDERED: ALBUTEROL SULFATE 2.5 MG/0.5 ML INH NEB SOLN INH PRN (07:01)
[2021-08-13] MEDS ORDERED: EPINEPHrine INJ 1 MG/ML 1ML AMP IM PRN (07:01)
[2021-08-13] MEDS ORDERED: methylPREDNISolone 125MG 2ML VIAL IV PRN (07:01)
[2021-08-13] MEDS ORDERED: diphenhydrAMINE 50MG/ML VIAL (J1200) IV PRN (07:01)
[2021-08-13 07:30] VITALS: BP 133/76
[2021-08-13] MEDS ORDERED: methylPREDNISolone 125MG 2ML VIAL IV ONE (07:30)
[2021-08-13] MEDS ORDERED: IMMUNE GLOBULIN 10% 40 GM in IV 1 EA IV ONE (07:30)
[2021-08-13] MEDS ORDERED: ACETAMINOPHEN TAB 650MG DOSE (2X325MG) PO ONE (07:30)
[2021-08-13] MEDS ORDERED: NS 1,000 ML IV SCH (07:30)
[2021-08-13] MEDS ORDERED: IMMUNE GLOBULIN 10% 5 GM in IV 1 EA IV ONE (07:30)
[2021-08-13] MEDS ORDERED: diphenhydrAMINE 25MG CAP PO ONE (07:30)
[2021-08-13] MEDS ORDERED: IMMUNE GLOBULIN 10% 10 GM in IV 1 EA IV ONE (07:30)
[2021-08-13] MEDS ORDERED: IMMUNE GLOBULIN 10% 20 GM in IV 1 EA IV ONE (07:30)
[2021-08-13 08:30] VITALS: BP 149/80
[2021-08-13 09:00] VITALS: BP 138/74
[2021-08-13 12:40] VITALS: BP 148/78
== END 2021-08-13 12:45 ==
LOC: M INFU 06:55
PROVIDERS: ATTEND Internal Medicine Rheumatology
DX: M33.10 Other dermatomyositis, organ involvement unspecified (principal)
CPT/HCPCS: 96365; 96366; J1459

== ENCOUNTER 2021-08-14 06:50 | Outpatient (CLI) | payer BC ==
[~2021-08-14] VITALS: Ht 170.2 cm; Wt 86.3 kg
[2021-08-14] VITALS (7 sets, daily range): BP systolic 136–172; BP diastolic 81–89
[2021-08-14] MEDS ORDERED: IMMUNE GLOBULIN 10% 10 GM in IV 1 EA IV ONE (07:30)
[2021-08-14] MEDS ORDERED: diphenhydrAMINE 25MG CAP PO ONE (07:30)
[2021-08-14] MEDS ORDERED: IMMUNE GLOBULIN 10% 40 GM in IV 1 EA IV ONE (07:30)
[2021-08-14] MEDS ORDERED: diphenhydrAMINE (50MG/ML) IV IV PRN (07:30)
[2021-08-14] MEDS ORDERED: ALBUTEROL SULFATE (2.5MG/0.5ML) NEB INH PRN (07:30)
[2021-08-14] MEDS ORDERED: ACETAMINOPHEN TAB 650MG DOSE (2X325MG) PO ONE (07:30)
[2021-08-14] MEDS ORDERED: EPINEPHrine (1MG/ML) IV IM PRN (07:30)
[2021-08-14] MEDS ORDERED: IMMUNE GLOBULIN 10% 20 GM in IV 1 EA IV ONE (07:30)
[2021-08-14] MEDS ORDERED: IMMUNE GLOBULIN 10% 5 GM in IV 1 EA IV ONE (07:30)
[2021-08-14] MEDS ORDERED: NS 1,000 ML IV ONE (07:30)
[2021-08-14] MEDS ORDERED: methylPREDNISolone 125MG 2ML VIAL IV ONE (07:30)
[2021-08-14] MEDS ORDERED: methylPREDNISolone (125 MG/2 ML) IV IV PRN (07:30)
== END 2021-08-14 11:50 ==
LOC: M INFU 06:50
PROVIDERS: ATTEND Internal Medicine Rheumatology
DX: M33.10 Other dermatomyositis, organ involvement unspecified (principal)
CPT/HCPCS: 96365; 96366; J1459

== ENCOUNTER 2021-09-09 07:13 | Outpatient (CLI) | payer BC ==
[~2021-09-09] VITALS: Ht 170.2 cm; Wt 84.0 kg
[2021-09-09] VITALS (8 sets, daily range): BP systolic 140–161; BP diastolic 80–89
[~2021-09-09 07:13] MED LIST changes: +IMMUNE GLOBULIN 10% 20 GM in IV 1 EA IV ONE
[2021-09-09] MEDS ORDERED: diphenhydrAMINE 25MG CAP PO ONE (08:00)
[2021-09-09] MEDS ORDERED: NS 1,000 ML IV SCH (08:00)
[2021-09-09] MEDS ORDERED: IMMUNE GLOBULIN 10% 5 GM in IV 1 EA IV ONE (08:00)
[2021-09-09] MEDS ORDERED: IMMUNE GLOBULIN 10% 20 GM in IV 1 EA IV ONE (08:00)
[2021-09-09] MEDS ORDERED: methylPREDNISolone 125MG 2ML VIAL IV ONE (08:00)
[2021-09-09] MEDS ORDERED: diphenhydrAMINE 50MG/ML VIAL (J1200) IV PRN (08:00)
[2021-09-09] MEDS ORDERED: methylPREDNISolone 125MG 2ML VIAL IV PRN (08:00)
[2021-09-09] MEDS ORDERED: IMMUNE GLOBULIN 10% 40 GM in IV 1 EA IV ONE (08:00)
[2021-09-09] MEDS ORDERED: IMMUNE GLOBULIN 10% 10 GM in IV 1 EA IV ONE (08:00)
[2021-09-09] MEDS ORDERED: EPINEPHrine INJ 1 MG/ML 1ML AMP IM PRN (08:00)
[2021-09-09] MEDS ORDERED: ACETAMINOPHEN TAB 650MG DOSE (2X325MG) PO ONE (08:00)
[2021-09-09] MEDS ORDERED: ALBUTEROL SULFATE 2.5 MG/0.5 ML INH NEB SOLN INH PRN (08:00)
== END 2021-09-09 12:55 | disposition home or self-care (01) ==
LOC: M INFU 07:13
PROVIDERS: ATTEND Internal Medicine Rheumatology
DX: M33.10 Other dermatomyositis, organ involvement unspecified (principal)
CPT/HCPCS: 36592; 96365; 96366; J1459

== ENCOUNTER → 2021-09-09 | Outpatient (CLI) | payer BC | LOC: M LAB 07:19 | PROVIDERS: ATTEND Physician Assistant Medical | DX: E03.9 Hypothyroidism, unspecified (principal); H60.63 Unspecified chronic otitis externa, bilateral ==

== ENCOUNTER → 2021-09-09 | Outpatient (CLI) | payer BC ==
[2021-09-09 08:09] LABS: BASO % 0.8 % (0.0-1.0); EOS # 0.1 10^3/uL (0.0-0.5); EOS % 1.8 % (0.0-3.0); HEMATOCRIT 38.1 % (36.0-47.0); HEMOGLOBIN 12.3 g/dl (12.0-15.5); LYMPH # 0.9 10^3/uL (1.5-5.0); LYMPH % 23.4 % (24.0-44.0); MEAN CORPUSCULAR HEMOGLOBIN 28.9 pg (27.0-33.0); MEAN CORPUSCULAR HGB CONC 32.3 g/dl (32.0-36.5); MEAN CORPUSCULAR VOLUME 89.4 fl (80.0-96.0); MONO # 0.4 10^3/uL (0.0-0.8); MONO % 8.9 % (2.0-8.0); NEUTROPHILS # 2.6 10^3/uL (1.5-8.5); NEUTROPHILS % 64.6 % (36.0-66.0); PLATELET COUNT, AUTOMATED 225 10^3/uL (150-450); RED BLOOD COUNT 4.26 10^6/uL (4.00-5.40); WHITE BLOOD COUNT 3.9 10^3/uL (4.0-10.0)
[2021-09-09 08:37] LABS: ALBUMIN 3.4 GM/DL (3.2-5.2); ALT/SGPT 24 U/L (12-78); BILIRUBIN,TOTAL 0.3 MG/DL (0.2-1.0); BLOOD UREA NITROGEN 18 MG/DL (7-18); CALCIUM LEVEL 9.5 MG/DL (8.5-10.1); CARBON DIOXIDE LEVEL 27 MEQ/L (21-32); CHLORIDE LEVEL 111 MEQ/L (98-107); CREATININE FOR GFR 0.85 MG/DL (0.55-1.30); GLOMERULAR FILTRATION RATE > 60.0 (>51); GLUCOSE, FASTING 85 MG/DL (70-100); POTASSIUM SERUM 4.2 MEQ/L (3.5-5.1); SODIUM LEVEL 143 MEQ/L (136-145); TOTAL PROTEIN 7.4 GM/DL (6.4-8.2)
== END ==
LOC: M LAB 07:17
PROVIDERS: ATTEND Internal Medicine Rheumatology
DX: M33.10 Other dermatomyositis, organ involvement unspecified (principal)

== ENCOUNTER 2021-09-10 07:00 | Outpatient (CLI) | payer BC ==
[2021-09-10 07:00] VITALS: BP 139/85
[~2021-09-10 07:00] MED LIST changes: -IMMUNE GLOBULIN 10% 20 GM in IV 1 EA IV ONE
[2021-09-10] MEDS ORDERED: methylPREDNISolone 125MG 2ML VIAL IV ONE (07:30)
[2021-09-10] MEDS ORDERED: IMMUNE GLOBULIN 10% 40 GM in IV 1 EA IV ONE (07:30)
[2021-09-10] MEDS ORDERED: diphenhydrAMINE 50MG/ML VIAL (J1200) IV PRN (07:30)
[2021-09-10] MEDS ORDERED: ALBUTEROL SULFATE 2.5 MG/0.5 ML INH NEB SOLN INH PRN (07:30)
[2021-09-10] MEDS ORDERED: methylPREDNISolone 125MG 2ML VIAL IV PRN (07:30)
[2021-09-10] MEDS ORDERED: IMMUNE GLOBULIN 10% 20 GM in IV 1 EA IV ONE (07:30)
[2021-09-10] MEDS ORDERED: EPINEPHrine INJ 1 MG/ML 1ML AMP IM PRN (07:30)
[2021-09-10] MEDS ORDERED: IMMUNE GLOBULIN 10% 5 GM in IV 1 EA IV ONE (07:30)
[2021-09-10] MEDS ORDERED: ACETAMINOPHEN TAB 650MG DOSE (2X325MG) PO ONE (07:30)
[2021-09-10] MEDS ORDERED: diphenhydrAMINE 25MG CAP PO ONE (07:30)
[2021-09-10] MEDS ORDERED: NS 1,000 ML IV SCH (07:30)
[2021-09-10] MEDS ORDERED: IMMUNE GLOBULIN 10% 10 GM in IV 1 EA IV ONE (07:30)
[2021-09-10 07:35] VITALS: BP 134/75
[2021-09-10 08:07] VITALS: BP 139/83
[2021-09-10 09:05] VITALS: BP 138/84
[2021-09-10 09:59] VITALS: BP 177/86
[2021-09-10 12:10] VITALS: BP 162/87
== END 2021-09-10 12:10 | disposition home or self-care (01) ==
LOC: M INFU 07:00
PROVIDERS: ATTEND Internal Medicine Rheumatology
DX: M33.10 Other dermatomyositis, organ involvement unspecified (principal)
CPT/HCPCS: 96365; 96366; J1459

== ENCOUNTER → 2021-09-24 | Outpatient (CLI) | payer BC | LOC: M RAD 12:28 | PROVIDERS: ATTEND Physician Assistant Medical | DX: E03.9 Hypothyroidism, unspecified (principal) ==

== ENCOUNTER 2021-10-21 07:30 | Outpatient (CLI) | payer BC ==
[2021-10-21] VITALS (8 sets, daily range): BP systolic 126–167; BP diastolic 75–90
[~2021-10-21] VITALS: Ht 170.2 cm; Wt 86.3 kg
[~2021-10-21 07:30] MED LIST changes: +ACETAMINOPHEN TAB 650MG DOSE (2X325MG) PO ONE; +ALBUTEROL SULFATE 2.5 MG/0.5 ML INH NEB SOLN INH PRN; +EPINEPHrine INJ 1 MG/ML 1ML AMP IM PRN; +IMMUNE GLOBULIN 10% 10 GM in IV 1 EA IV ONE; +IMMUNE GLOBULIN 10% 20 GM in IV 1 EA IV ONE; +IMMUNE GLOBULIN 10% 40 GM in IV 1 EA IV ONE; +IMMUNE GLOBULIN 10% 5 GM in IV 1 EA IV ONE; +NS 1,000 ML IV SCH; +diphenhydrAMINE 25MG CAP PO ONE; +diphenhydrAMINE 50MG/ML VIAL (J1200) IV PRN; +methylPREDNISolone 125MG 2ML VIAL IV ONE; +methylPREDNISolone 125MG 2ML VIAL IV PRN
== END 2021-10-21 12:35 | disposition home or self-care (01) ==
LOC: M INFU 07:30
PROVIDERS: ATTEND Internal Medicine Rheumatology
DX: M33.10 Other dermatomyositis, organ involvement unspecified (principal)
CPT/HCPCS: 96365; 96366; J1459

== ENCOUNTER 2021-10-22 08:00 | Outpatient (CLI) | payer BC ==
[~2021-10-22] VITALS: Ht 170.2 cm; Wt 86.3 kg
[2021-10-22 07:15] VITALS: BP 157/89
[2021-10-22 07:45] VITALS: BP 133/83
[2021-10-22 08:45] VITALS: BP 144/87
[2021-10-22 09:45] VITALS: BP 141/82
[2021-10-22 12:00] VITALS: BP 161/67
== END 2021-10-22 12:10 | disposition home or self-care (01) ==
LOC: M INFU 08:00
PROVIDERS: ATTEND Internal Medicine Rheumatology
DX: M33.10 Other dermatomyositis, organ involvement unspecified (principal)
CPT/HCPCS: 96365; 96366; J1459

== ENCOUNTER 2021-11-20 07:05 | Outpatient (CLI) | payer BC ==
[~2021-11-20] VITALS: Ht 170.2 cm; Wt 86.3 kg
[2021-11-20] VITALS (7 sets, daily range): BP systolic 133–174; BP diastolic 87–95
[~2021-11-20 07:05] MED LIST changes: -ACETAMINOPHEN TAB 650MG DOSE (2X325MG) PO ONE; -ALBUTEROL SULFATE 2.5 MG/0.5 ML INH NEB SOLN INH PRN; -EPINEPHrine INJ 1 MG/ML 1ML AMP IM PRN; -IMMUNE GLOBULIN 10% 10 GM in IV 1 EA IV ONE; -IMMUNE GLOBULIN 10% 20 GM in IV 1 EA IV ONE; -IMMUNE GLOBULIN 10% 40 GM in IV 1 EA IV ONE; -IMMUNE GLOBULIN 10% 5 GM in IV 1 EA IV ONE; -NS 1,000 ML IV SCH; -diphenhydrAMINE 25MG CAP PO ONE; -diphenhydrAMINE 50MG/ML VIAL (J1200) IV PRN; -methylPREDNISolone 125MG 2ML VIAL IV ONE; -methylPREDNISolone 125MG 2ML VIAL IV PRN
[2021-11-20] MEDS ORDERED: NS 1,000 ML IV SCH (07:30)
[2021-11-20] MEDS ORDERED: IMMUNE GLOBULIN 10% 40 GM in IV 1 EA IV ONE (07:30)
[2021-11-20] MEDS ORDERED: ACETAMINOPHEN TAB 650MG DOSE (2X325MG) PO ONE (07:30)
[2021-11-20] MEDS ORDERED: methylPREDNISolone 125MG 2ML VIAL IV ONE (07:30)
[2021-11-20] MEDS ORDERED: diphenhydrAMINE 50MG/ML VIAL (J1200) IV PRN (07:30)
[2021-11-20] MEDS ORDERED: IMMUNE GLOBULIN 10% 20 GM in IV 1 EA IV ONE (07:30)
[2021-11-20] MEDS ORDERED: EPINEPHrine INJ 1 MG/ML 1ML AMP IM PRN (07:30)
[2021-11-20] MEDS ORDERED: methylPREDNISolone 125MG 2ML VIAL IV PRN (07:30)
[2021-11-20] MEDS ORDERED: ALBUTEROL SULFATE 2.5 MG/0.5 ML INH NEB SOLN INH PRN (07:30)
[2021-11-20] MEDS ORDERED: IMMUNE GLOBULIN 10% 10 GM in IV 1 EA IV ONE (07:30)
[2021-11-20] MEDS ORDERED: IMMUNE GLOBULIN 10% 5 GM in IV 1 EA IV ONE (07:30)
[2021-11-20] MEDS ORDERED: diphenhydrAMINE 25MG CAP PO ONE (07:30)
== END 2021-11-20 12:20 | disposition home or self-care (01) ==
LOC: M INFU 07:05
PROVIDERS: ATTEND Internal Medicine Rheumatology
DX: M33.10 Other dermatomyositis, organ involvement unspecified (principal)
CPT/HCPCS: 96365; 96366; J1459

== ENCOUNTER 2021-11-21 06:53 | Outpatient (CLI) | payer BC ==
[~2021-11-21] VITALS: Ht 170.2 cm; Wt 86.7 kg
[2021-11-21] MEDS ORDERED: diphenhydrAMINE 50MG/ML VIAL (J1200) IV PRN (07:01)
[2021-11-21] MEDS ORDERED: EPINEPHrine INJ 1 MG/ML 1ML AMP IM PRN (07:01)
[2021-11-21] MEDS ORDERED: ALBUTEROL SULFATE 2.5 MG/0.5 ML INH NEB SOLN INH PRN (07:01)
[2021-11-21] MEDS ORDERED: methylPREDNISolone 125MG 2ML VIAL IV PRN (07:01)
[2021-11-21 07:20] VITALS: BP 141/72
[2021-11-21] MEDS ORDERED: diphenhydrAMINE 25MG CAP PO ONE (07:30)
[2021-11-21] MEDS ORDERED: NS 1,000 ML IV SCH (07:30)
[2021-11-21] MEDS ORDERED: methylPREDNISolone 125MG 2ML VIAL IV ONE (07:30)
[2021-11-21] MEDS ORDERED: IMMUNE GLOBULIN 10% 20 GM in IV 1 EA IV ONE (07:30)
[2021-11-21] MEDS ORDERED: ACETAMINOPHEN TAB 650MG DOSE (2X325MG) PO ONE (07:30)
[2021-11-21] MEDS ORDERED: IMMUNE GLOBULIN 10% 40 GM in IV 1 EA IV ONE (07:30)
[2021-11-21] MEDS ORDERED: IMMUNE GLOBULIN 10% 5 GM in IV 1 EA IV ONE (07:30)
[2021-11-21] MEDS ORDERED: IMMUNE GLOBULIN 10% 10 GM in IV 1 EA IV ONE (07:30)
[2021-11-21 08:00] VITALS: BP 137/74
[2021-11-21 09:00] VITALS: BP 129/80
[2021-11-21 10:00] VITALS: BP 160/80
[2021-11-21 11:00] VITALS: BP 169/78
[2021-11-21 12:25] VITALS: BP 188/87
== END 2021-11-21 12:25 | disposition home or self-care (01) ==
LOC: M INFU 06:53
PROVIDERS: ATTEND Internal Medicine Rheumatology
DX: M33.10 Other dermatomyositis, organ involvement unspecified (principal)
CPT/HCPCS: 96365; 96366; J1459

== ENCOUNTER → 2021-11-21 | Outpatient (CLI) | payer BC ==
[2021-11-21 08:43] LABS: FREE THYROXINE INDEX 3.8 % (1.3-4.8); THYROID STIMULATING HORMONE 2.36 uIU/ML (0.358-3.740); THYROXINE (T4) 11.5 UG/DL (4.5-12.0)
== END ==
LOC: M LAB 07:00
PROVIDERS: ATTEND Physician Assistant Medical
DX: E03.9 Hypothyroidism, unspecified (principal)

== ENCOUNTER → 2021-11-21 | Outpatient (CLI) | payer BC ==
[2021-11-21 08:02] LABS: BASO % 1.3 % (0.0-1.0); EOS # 0.1 10^3/uL (0.0-0.5); EOS % 2.8 % (0.0-3.0); HEMATOCRIT 37.5 % (36.0-47.0); HEMOGLOBIN 12.2 g/dl (12.0-15.5); LYMPH # 0.6 10^3/uL (1.5-5.0); LYMPH % 19.2 % (24.0-44.0); MEAN CORPUSCULAR HEMOGLOBIN 28.6 pg (27.0-33.0); MEAN CORPUSCULAR HGB CONC 32.5 g/dl (32.0-36.5); MONO # 0.4 10^3/uL (0.0-0.8); MONO % 12.3 % (2.0-8.0); NEUTROPHILS % 63.8 % (36.0-66.0); PLATELET COUNT, AUTOMATED 229 10^3/uL (150-450); RED BLOOD COUNT 4.26 10^6/uL (4.00-5.40); WHITE BLOOD COUNT 3.2 10^3/uL (4.0-10.0)
[2021-11-21 08:44] LABS: ALBUMIN 3.2 GM/DL (3.2-5.2); ALT/SGPT 23 U/L (12-78); BILIRUBIN,TOTAL 0.3 MG/DL (0.2-1.0); BLOOD UREA NITROGEN 17 MG/DL (7-18); CALCIUM LEVEL 9.2 MG/DL (8.5-10.1); CARBON DIOXIDE LEVEL 26 MEQ/L (21-32); CHLORIDE LEVEL 106 MEQ/L (98-107); CREATININE FOR GFR 0.93 MG/DL (0.55-1.30); FREE T4 1.27 NG/DL (0.76-1.46); GLOMERULAR FILTRATION RATE > 60.0 (>51); GLUCOSE, FASTING 92 MG/DL (70-100); POTASSIUM SERUM 3.9 MEQ/L (3.5-5.1); SODIUM LEVEL 137 MEQ/L (136-145); TOTAL PROTEIN 9.1 GM/DL (6.4-8.2)
[2021-11-21 10:46] LABS: TOTAL 25(OH) VITAMIN D 81.7 NG/ML (30.0-100.0); VITAMIN B12 LEVEL 970 PG/ML (247-911)
== END ==
LOC: M LAB 07:02
PROVIDERS: ATTEND Physician Assistant
DX: E03.9 Hypothyroidism, unspecified (principal)

== ENCOUNTER 2021-12-23 06:45 | Outpatient (CLI) | payer BC ==
[~2021-12-23] VITALS: Ht 170.2 cm; Wt 86.3 kg
[2021-12-23] MEDS ORDERED: IMMUNE GLOBULIN 10% 20 GM in IV 1 EA IV ONE (07:00)
[2021-12-23] MEDS ORDERED: diphenhydrAMINE 25MG CAP PO ONE (07:00)
[2021-12-23] MEDS ORDERED: NS 1,000 ML IV SCH (07:00)
[2021-12-23] MEDS ORDERED: ACETAMINOPHEN TAB 650MG DOSE (2X325MG) PO ONE (07:00)
[2021-12-23] MEDS ORDERED: methylPREDNISolone 125MG 2ML VIAL IV ONE (07:00)
[2021-12-23] MEDS ORDERED: IMMUNE GLOBULIN 10% 10 GM in IV 1 EA IV ONE (07:00)
[2021-12-23] MEDS ORDERED: IMMUNE GLOBULIN 10% 40 GM in IV 1 EA IV ONE (07:00)
[2021-12-23] MEDS ORDERED: IMMUNE GLOBULIN 10% 5 GM in IV 1 EA IV ONE (07:00)
[2021-12-23] MEDS ORDERED: EPINEPHrine INJ 1 MG/ML 1ML AMP IM PRN (07:01)
[2021-12-23] MEDS ORDERED: ALBUTEROL SULFATE 2.5 MG/0.5 ML INH NEB SOLN INH PRN (07:01)
[2021-12-23] MEDS ORDERED: methylPREDNISolone 125MG 2ML VIAL IV PRN (07:01)
[2021-12-23] MEDS ORDERED: diphenhydrAMINE 50MG/ML VIAL IV PRN (07:01)
[2021-12-23 07:30] VITALS: BP 150/89
[2021-12-23 08:00] VITALS: BP 140/89
[2021-12-23 08:30] VITALS: BP 125/81
[2021-12-23 09:00] VITALS: BP 139/87
[2021-12-23 10:00] VITALS: BP 129/84
== END 2021-12-23 13:10 | disposition home or self-care (01) ==
LOC: M INFU 06:45
PROVIDERS: ATTEND Internal Medicine Rheumatology
DX: M33.10 Other dermatomyositis, organ involvement unspecified (principal)
CPT/HCPCS: 96365; 96366; J1459

== ENCOUNTER 2021-12-24 07:15 | Outpatient (CLI) | payer BC ==
[~2021-12-24] VITALS: Ht 170.2 cm; Wt 86.3 kg
[~2021-12-24 07:15] MED LIST changes: +ALBUTEROL SULFATE 2.5 MG/0.5 ML INH NEB SOLN INH PRN; +EPINEPHrine INJ 1 MG/ML 1ML AMP IM PRN; +diphenhydrAMINE 50MG/ML VIAL IV PRN; +methylPREDNISolone 125MG 2ML VIAL IV PRN
[2021-12-24] MEDS ORDERED: IMMUNE GLOBULIN 10% 5 GM in IV 1 EA IV ONE (07:30)
[2021-12-24] MEDS ORDERED: diphenhydrAMINE 25MG CAP PO ONE (07:30)
[2021-12-24] MEDS ORDERED: IMMUNE GLOBULIN 10% 10 GM in IV 1 EA IV ONE (07:30)
[2021-12-24] MEDS ORDERED: IMMUNE GLOBULIN 10% 40 GM in IV 1 EA IV ONE (07:30)
[2021-12-24] MEDS ORDERED: ACETAMINOPHEN TAB 650MG DOSE (2X325MG) PO ONE (07:30)
[2021-12-24] MEDS ORDERED: IMMUNE GLOBULIN 10% 20 GM in IV 1 EA IV ONE (07:30)
[2021-12-24] MEDS ORDERED: NS 1,000 ML IV SCH (07:30)
[2021-12-24] MEDS ORDERED: methylPREDNISolone 125MG 2ML VIAL IV ONE (07:30)
[2021-12-24 07:31] VITALS: BP 162/82
[2021-12-24 08:30] VITALS: BP 142/74
[2021-12-24 11:00] VITALS: BP 167/68
[2021-12-24 12:15] VITALS: BP 136/72
== END 2021-12-24 12:15 | disposition home or self-care (01) ==
LOC: M INFU 07:15
PROVIDERS: ATTEND Internal Medicine Rheumatology
DX: M33.10 Other dermatomyositis, organ involvement unspecified (principal)
CPT/HCPCS: 96365; 96366; J1459

== ENCOUNTER 2022-01-20 06:50 | Outpatient (CLI) | payer BC ==
[2022-01-20] VITALS (7 sets, daily range): BP systolic 135–165; BP diastolic 68–96
[~2022-01-20] VITALS: Ht 170.2 cm; Wt 84.1 kg
[~2022-01-20 06:50] MED LIST changes: -ALBUTEROL SULFATE 2.5 MG/0.5 ML INH NEB SOLN INH PRN; -EPINEPHrine INJ 1 MG/ML 1ML AMP IM PRN; -diphenhydrAMINE 50MG/ML VIAL IV PRN; -methylPREDNISolone 125MG 2ML VIAL IV PRN
[2022-01-20] MEDS ORDERED: ALBUTEROL SULFATE 2.5 MG/0.5 ML INH NEB SOLN INH PRN (07:01)
[2022-01-20] MEDS ORDERED: methylPREDNISolone 125MG 2ML VIAL IV PRN (07:01)
[2022-01-20] MEDS ORDERED: diphenhydrAMINE 50MG/ML VIAL IV PRN (07:01)
[2022-01-20] MEDS ORDERED: EPINEPHrine INJ 1 MG/ML 1ML AMP IM PRN (07:01)
[2022-01-20] MEDS ORDERED: IMMUNE GLOBULIN 10% 10 GM in IV 1 EA IV ONE (07:30)
[2022-01-20] MEDS ORDERED: ACETAMINOPHEN TAB 650MG DOSE (2X325MG) PO ONE (07:30)
[2022-01-20] MEDS ORDERED: IMMUNE GLOBULIN 10% 5 GM in IV 1 EA IV ONE (07:30)
[2022-01-20] MEDS ORDERED: diphenhydrAMINE 25MG CAP PO ONE (07:30)
[2022-01-20] MEDS ORDERED: NS 1,000 ML IV SCH (07:30)
[2022-01-20] MEDS ORDERED: IMMUNE GLOBULIN 10% 40 GM in IV 1 EA IV ONE (07:30)
[2022-01-20] MEDS ORDERED: IMMUNE GLOBULIN 10% 20 GM in IV 1 EA IV ONE (07:30)
== END 2022-01-20 11:40 | disposition home or self-care (01) ==
LOC: M INFU 06:50
PROVIDERS: ATTEND Internal Medicine Rheumatology
DX: M33.10 Other dermatomyositis, organ involvement unspecified (principal)
CPT/HCPCS: 96365; 96366; J1459

== ENCOUNTER 2022-01-21 06:50 | Outpatient (CLI) | payer BC ==
[~2022-01-21] VITALS: Ht 170.2 cm; Wt 90.0 kg
[2022-01-21] MEDS ORDERED: diphenhydrAMINE 50MG/ML VIAL IV PRN (07:01)
[2022-01-21] MEDS ORDERED: methylPREDNISolone 125MG 2ML VIAL IV PRN (07:01)
[2022-01-21] MEDS ORDERED: EPINEPHrine INJ 1 MG/ML 1ML AMP IM PRN (07:01)
[2022-01-21] MEDS ORDERED: ALBUTEROL SULFATE 2.5 MG/0.5 ML INH NEB SOLN INH PRN (07:01)
[2022-01-21 07:13] VITALS: BP 164/86
[2022-01-21] MEDS ORDERED: ACETAMINOPHEN 650MG PO PRIOR TO INFUSION PO ONE (07:30)
[2022-01-21] MEDS ORDERED: IMMUNE GLOBULIN 10% 10 GM in IV 1 EA IV ONE (07:30)
[2022-01-21] MEDS ORDERED: IMMUNE GLOBULIN 10% 20 GM in IV 1 EA IV ONE (07:30)
[2022-01-21] MEDS ORDERED: methylPREDNISolone 125MG 2ML VIAL IV ONE (07:30)
[2022-01-21] MEDS ORDERED: diphenhydrAMINE 25MG PO PRIOR TO INFUSION PO ONE (07:30)
[2022-01-21] MEDS ORDERED: IMMUNE GLOBULIN 10% 5 GM in IV 1 EA IV ONE (07:30)
[2022-01-21] MEDS ORDERED: NS 1,000 ML IV SCH (07:30)
[2022-01-21] MEDS ORDERED: IMMUNE GLOBULIN 10% 40 GM in IV 1 EA IV ONE (07:30)
[2022-01-21 08:30] VITALS: BP 145/78
[2022-01-21 09:30] VITALS: BP 141/71
[2022-01-21 11:44] VITALS: BP 169/92
== END 2022-01-21 11:40 | disposition home or self-care (01) ==
LOC: M INFU 06:50
PROVIDERS: ATTEND Internal Medicine Rheumatology
DX: M33.10 Other dermatomyositis, organ involvement unspecified (principal)
CPT/HCPCS: 96365; 96366; J1459

== ENCOUNTER 2022-02-20 07:10 | Outpatient (CLI) | payer BC ==
[~2022-02-20] VITALS: Ht 170.2 cm; Wt 86.3 kg
[2022-02-20 07:10] VITALS: BP 161/82
[~2022-02-20 07:10] MED LIST changes: +ALBUTEROL SULFATE 2.5MG/0.5ML INH NEB SOLN INH PRN; +EPINEPHrine INJ 1 MG/ML 1ML AMP IM PRN; +diphenhydrAMINE 50MG/ML VIAL IV PRN; +methylPREDNISolone 125MG 2ML VIAL IV PRN
[2022-02-20] MEDS ORDERED: ACETAMINOPHEN TAB 650MG DOSE (2X325MG) PO ONE (07:30)
[2022-02-20] MEDS ORDERED: IMMUNE GLOBULIN 10% 40 GM in IV 1 EA IV ONE (07:30)
[2022-02-20] MEDS ORDERED: diphenhydrAMINE 25MG CAP PO ONE (07:30)
[2022-02-20] MEDS ORDERED: methylPREDNISolone 125MG 2ML VIAL IV ONE (07:30)
[2022-02-20] MEDS ORDERED: IMMUNE GLOBULIN 10% 20 GM in IV 1 EA IV ONE (07:30)
[2022-02-20] MEDS ORDERED: NS 1,000 ML IV SCH (07:30)
[2022-02-20] MEDS ORDERED: IMMUNE GLOBULIN 10% 10 GM in IV 1 EA IV ONE (07:30)
[2022-02-20] MEDS ORDERED: IMMUNE GLOBULIN 10% 5 GM in IV 1 EA IV ONE (07:30)
[2022-02-20 08:27] VITALS: BP 137/79
[2022-02-20 09:30] VITALS: BP 161/97
[2022-02-20 10:25] VITALS: BP 164/88
[2022-02-20 11:45] VITALS: BP 148/82
== END 2022-02-20 11:55 | disposition home or self-care (01) ==
LOC: M INFU 07:10
PROVIDERS: ATTEND Internal Medicine Rheumatology
DX: M33.10 Other dermatomyositis, organ involvement unspecified (principal)
CPT/HCPCS: 96365; 96366; J1459

== ENCOUNTER 2022-02-21 07:00 | Outpatient (CLI) | payer BC ==
[~2022-02-21] VITALS: Ht 170.2 cm; Wt 86.3 kg
[2022-02-21] VITALS (7 sets, daily range): BP systolic 135–176; BP diastolic 77–91
[~2022-02-21 07:00] MED LIST changes: -ALBUTEROL SULFATE 2.5MG/0.5ML INH NEB SOLN INH PRN; -EPINEPHrine INJ 1 MG/ML 1ML AMP IM PRN; -diphenhydrAMINE 50MG/ML VIAL IV PRN; -methylPREDNISolone 125MG 2ML VIAL IV PRN
[2022-02-21] MEDS ORDERED: ALBUTEROL SULFATE 2.5MG/0.5ML INH NEB SOLN INH PRN (07:01)
[2022-02-21] MEDS ORDERED: methylPREDNISolone 125MG 2ML VIAL IV PRN (07:01)
[2022-02-21] MEDS ORDERED: EPINEPHrine INJ 1 MG/ML 1ML AMP IM PRN (07:01)
[2022-02-21] MEDS ORDERED: diphenhydrAMINE 50MG/ML VIAL IV PRN (07:01)
[2022-02-21] MEDS ORDERED: IMMUNE GLOBULIN 10% 20 GM in IV 1 EA IV ONE (08:30)
[2022-02-21] MEDS ORDERED: NS 1,000 ML IV SCH (08:30)
[2022-02-21] MEDS ORDERED: IMMUNE GLOBULIN 10% 5 GM in IV 1 EA IV ONE (08:30)
[2022-02-21] MEDS ORDERED: methylPREDNISolone 125MG 2ML VIAL IV ONE (08:30)
[2022-02-21] MEDS ORDERED: diphenhydrAMINE 25MG CAP PO ONE (08:30)
[2022-02-21] MEDS ORDERED: IMMUNE GLOBULIN 10% 10 GM in IV 1 EA IV ONE (08:30)
[2022-02-21] MEDS ORDERED: IMMUNE GLOBULIN 10% 40 GM in IV 1 EA IV ONE (08:30)
[2022-02-21] MEDS ORDERED: ACETAMINOPHEN TAB 650MG DOSE (2X325MG) PO ONE (08:30)
== END 2022-02-21 12:45 | disposition home or self-care (01) ==
LOC: M INFU 07:00
PROVIDERS: ATTEND Internal Medicine Rheumatology
DX: M33.10 Other dermatomyositis, organ involvement unspecified (principal)
CPT/HCPCS: 96365; 96366; J1459

== ENCOUNTER 2022-03-24 07:00 | Outpatient (CLI) | payer BC ==
[~2022-03-24] VITALS: Ht 170.2 cm; Wt 76.7 kg
[2022-03-24 07:00] VITALS: BP 143/85
[~2022-03-24 07:00] MED LIST changes: +IMMUNE GLOBULIN 10% 10 GM in IV 1 EA IV ONE; +IMMUNE GLOBULIN 10% 20 GM in IV 1 EA IV ONE; +IMMUNE GLOBULIN 10% 40 GM in IV 1 EA IV ONE
[2022-03-24] MEDS ORDERED: methylPREDNISolone 125MG 2ML VIAL IV PRN (07:01)
[2022-03-24] MEDS ORDERED: EPINEPHrine INJ 1 MG/ML 1ML AMP IM PRN (07:01)
[2022-03-24] MEDS ORDERED: diphenhydrAMINE 50MG/ML VIAL IV PRN (07:01)
[2022-03-24] MEDS ORDERED: ALBUTEROL SULFATE 2.5MG/0.5ML INH NEB SOLN INH PRN (07:01)
[2022-03-24] MEDS ORDERED: methylPREDNISolone 125MG 2ML VIAL IV ONE (07:30)
[2022-03-24] MEDS ORDERED: IMMUNE GLOBULIN 10% 5 GM in IV 1 EA IV ONE (07:30)
[2022-03-24] MEDS ORDERED: diphenhydrAMINE 25MG CAP PO ONE (07:30)
[2022-03-24] MEDS ORDERED: ACETAMINOPHEN TAB 650MG DOSE (2X325MG) PO ONE (07:30)
[2022-03-24] MEDS ORDERED: NS 1,000 ML IV SCH (07:30)
[2022-03-24 08:14] VITALS: BP 135/80
[2022-03-24 09:00] VITALS: BP 133/83
[2022-03-24 10:55] VITALS: BP 158/88
[2022-03-24 12:44] VITALS: BP 158/88
== END 2022-03-24 12:45 ==
LOC: M INFU 07:00
PROVIDERS: ATTEND Internal Medicine Rheumatology
DX: M33.10 Other dermatomyositis, organ involvement unspecified (principal)
CPT/HCPCS: 96365; 96366; J1459

== ENCOUNTER 2022-03-25 07:00 | Outpatient (CLI) | payer BC ==
[~2022-03-25] VITALS: Ht 170.2 cm; Wt 76.7 kg
[2022-03-25 07:00] VITALS: BP 155/87
[~2022-03-25 07:00] MED LIST changes: -IMMUNE GLOBULIN 10% 10 GM in IV 1 EA IV ONE; -IMMUNE GLOBULIN 10% 20 GM in IV 1 EA IV ONE; -IMMUNE GLOBULIN 10% 40 GM in IV 1 EA IV ONE
[2022-03-25] MEDS ORDERED: diphenhydrAMINE 50MG/ML VIAL IV PRN (07:01)
[2022-03-25] MEDS ORDERED: ALBUTEROL SULFATE 2.5MG/0.5ML INH NEB SOLN INH PRN (07:01)
[2022-03-25] MEDS ORDERED: EPINEPHrine INJ 1 MG/ML 1ML AMP IM PRN (07:01)
[2022-03-25] MEDS ORDERED: methylPREDNISolone 125MG 2ML VIAL IV PRN (07:01)
[2022-03-25] MEDS ORDERED: methylPREDNISolone 125MG 2ML VIAL IV ONE (07:30)
[2022-03-25] MEDS ORDERED: diphenhydrAMINE 25MG CAP PO SCH (07:30)
[2022-03-25] MEDS ORDERED: IMMUNE GLOBULIN 10% 5 GM in IV 1 EA IV ONE (07:30)
[2022-03-25] MEDS ORDERED: IMMUNE GLOBULIN 10% 10 GM in IV 1 EA IV ONE (07:30)
[2022-03-25] MEDS ORDERED: IMMUNE GLOBULIN 10% 40 GM in IV 1 EA IV ONE (07:30)
[2022-03-25] MEDS ORDERED: NS 1,000 ML IV SCH (07:30)
[2022-03-25] MEDS ORDERED: IMMUNE GLOBULIN 10% 20 GM in IV 1 EA IV ONE (07:30)
[2022-03-25] MEDS ORDERED: ACETAMINOPHEN TAB 650MG DOSE (2X325MG) PO SCH (07:30)
[2022-03-25 08:00] VITALS: BP 136/83
[2022-03-25 09:24] VITALS: BP 164/86
[2022-03-25 11:59] VITALS: BP 169/95
== END 2022-03-25 12:00 | disposition home or self-care (01) ==
LOC: M INFU 07:00
PROVIDERS: ATTEND Internal Medicine Rheumatology
DX: M33.10 Other dermatomyositis, organ involvement unspecified (principal)
CPT/HCPCS: 96365; 96366; J1459

== ENCOUNTER 2022-04-21 07:00 | Outpatient (CLI) | payer BC ==
[~2022-04-21] VITALS: Ht 170.2 cm; Wt 84.0 kg
[2022-04-21 07:00] VITALS: BP 137/75
[2022-04-21] MEDS ORDERED: methylPREDNISolone 125MG 2ML VIAL IV PRN (07:01)
[2022-04-21] MEDS ORDERED: ALBUTEROL SULFATE 2.5MG/0.5ML INH NEB SOLN INH PRN (07:01)
[2022-04-21] MEDS ORDERED: diphenhydrAMINE 50MG/ML VIAL IV PRN (07:01)
[2022-04-21] MEDS ORDERED: EPINEPHrine INJ 1 MG/ML 1ML AMP IM PRN (07:01)
[2022-04-21] MEDS ORDERED: IMMUNE GLOBULIN 10% 40 GM in IV 1 EA IV ONE (07:30)
[2022-04-21] MEDS ORDERED: IMMUNE GLOBULIN 10% 5 GM in IV 1 EA IV ONE (07:30)
[2022-04-21] MEDS ORDERED: IMMUNE GLOBULIN 10% 20 GM in IV 1 EA IV ONE (07:30)
[2022-04-21] MEDS ORDERED: IMMUNE GLOBULIN 10% 10 GM in IV 1 EA IV ONE (07:30)
[2022-04-21] MEDS ORDERED: methylPREDNISolone 125MG 2ML VIAL IV ONE (07:30)
[2022-04-21] MEDS ORDERED: NS 1,000 ML IV SCH (07:30)
[2022-04-21] MEDS ORDERED: ACETAMINOPHEN TAB 650MG DOSE (2X325MG) PO ONE (07:30)
[2022-04-21] MEDS ORDERED: diphenhydrAMINE 25MG CAP PO ONE (07:30)
[2022-04-21 08:00] VITALS: BP 148/93
[2022-04-21 09:00] VITALS: BP 146/84
[2022-04-21 10:00] VITALS: BP 164/76
[2022-04-21 11:00] VITALS: BP 155/87
[2022-04-21 12:25] VITALS: BP 136/89
== END 2022-04-21 12:25 | disposition home or self-care (01) ==
LOC: M INFU 07:00
PROVIDERS: ATTEND Internal Medicine Rheumatology
DX: M33.10 Other dermatomyositis, organ involvement unspecified (principal)
CPT/HCPCS: 96365; 96366; J1459

== ENCOUNTER 2022-04-22 07:00 | Outpatient (CLI) | payer BC ==
[~2022-04-22] VITALS: Ht 170.2 cm; Wt 76.7 kg
[2022-04-22 07:18] VITALS: BP 130/88
[2022-04-22] MEDS ORDERED: methylPREDNISolone 125MG 2ML VIAL IV ONE (07:30)
[2022-04-22] MEDS ORDERED: IMMUNE GLOBULIN 10% 5 GM in IV 1 EA IV ONE (07:30)
[2022-04-22] MEDS ORDERED: EPINEPHrine INJ 1 MG/ML 1ML AMP IM PRN (07:30)
[2022-04-22] MEDS ORDERED: ACETAMINOPHEN TAB 650MG DOSE (2X325MG) PO ONE (07:30)
[2022-04-22] MEDS ORDERED: methylPREDNISolone 125MG 2ML VIAL IV PRN (07:30)
[2022-04-22] MEDS ORDERED: diphenhydrAMINE 50MG/ML VIAL IV PRN (07:30)
[2022-04-22] MEDS ORDERED: NS 1,000 ML IV SCH (07:30)
[2022-04-22] MEDS ORDERED: IMMUNE GLOBULIN 10% 20 GM in IV 1 EA IV ONE (07:30)
[2022-04-22] MEDS ORDERED: diphenhydrAMINE 25MG CAP PO ONE (07:30)
[2022-04-22] MEDS ORDERED: ALBUTEROL SULFATE 2.5MG/0.5ML INH NEB SOLN INH PRN (07:30)
[2022-04-22] MEDS ORDERED: IMMUNE GLOBULIN 10% 10 GM in IV 1 EA IV ONE (07:30)
[2022-04-22] MEDS ORDERED: IMMUNE GLOBULIN 10% 40 GM in IV 1 EA IV ONE (07:30)
[2022-04-22 07:45] VITALS: BP 142/86
[2022-04-22 08:45] VITALS: BP 151/74
[2022-04-22 09:45] VITALS: BP 162/81
[2022-04-22 10:45] VITALS: BP 140/76
[2022-04-22 12:24] VITALS: BP 151/88
== END 2022-04-22 12:25 | disposition home or self-care (01) ==
LOC: M INFU 07:00
PROVIDERS: ATTEND Internal Medicine Rheumatology
DX: M33.10 Other dermatomyositis, organ involvement unspecified (principal)
CPT/HCPCS: 96365; 96366; J1459

== ENCOUNTER 2022-05-19 07:01 | Outpatient (CLI) | payer BC ==
[2022-05-19] VITALS (8 sets, daily range): BP systolic 133–165; BP diastolic 78–99
[~2022-05-19] VITALS: Ht 170.2 cm; Wt 85.0 kg
[~2022-05-19 07:01] MED LIST changes: +ALBUTEROL SULFATE 2.5MG/0.5ML INH NEB SOLN INH PRN; +EPINEPHrine INJ 1 MG/ML 1ML AMP IM PRN; +diphenhydrAMINE 50MG/ML VIAL IV PRN; +methylPREDNISolone 125MG 2ML VIAL IV PRN
[2022-05-19] MEDS ORDERED: methylPREDNISolone 125MG 2ML VIAL IV ONE (07:30)
[2022-05-19] MEDS ORDERED: ACETAMINOPHEN TAB 650MG DOSE (2X325MG) PO ONE (07:30)
[2022-05-19] MEDS ORDERED: NS 1,000 ML IV SCH (07:30)
[2022-05-19] MEDS ORDERED: diphenhydrAMINE 25MG CAP PO ONE (07:30)
[2022-05-19] MEDS ORDERED: IMMUNE GLOBULIN 10% 5 GM in IV 1 EA IV ONE (07:30)
[2022-05-19] MEDS ORDERED: IMMUNE GLOBULIN 10% 10 GM in IV 1 EA IV ONE (07:30)
[2022-05-19] MEDS ORDERED: IMMUNE GLOBULIN 10% 20 GM in IV 1 EA IV ONE (07:30)
[2022-05-19] MEDS ORDERED: IMMUNE GLOBULIN 10% 40 GM in IV 1 EA IV ONE (07:30)
[2022-05-19 07:43] LABS: BASO # 0.1 10^3/uL (0.0-0.2); BASO % 1.2 % (0.0-1.0); EOS # 0.1 10^3/uL (0.0-0.5); EOS % 2.6 % (0.0-3.0); HEMATOCRIT 38.1 % (36.0-47.0); HEMOGLOBIN 12.1 g/dl (12.0-15.5); LYMPH % 23.1 % (24.0-44.0); MEAN CORPUSCULAR HEMOGLOBIN 28.3 pg (27.0-33.0); MEAN CORPUSCULAR HGB CONC 31.8 g/dl (32.0-36.5); MONO # 0.5 10^3/uL (0.0-0.8); MONO % 10.6 % (2.0-8.0); NEUTROPHILS # 2.6 10^3/uL (1.5-8.5); PLATELET COUNT, AUTOMATED 238 10^3/uL (150-450); RED BLOOD COUNT 4.28 10^6/uL (4.00-5.40); WHITE BLOOD COUNT 4.3 10^3/uL (4.0-10.0)
[2022-05-19 08:25] LABS: ALBUMIN 3.4 G/DL (3.2-5.2); ALKALINE PHOSPHATASE 81 U/L (46-116); ALT/SGPT 19 U/L (7.0-40); AST/SGOT 18 U/L (<34); BILIRUBIN,TOTAL 0.3 MG/DL (0.3-1.2); BLOOD UREA NITROGEN 20 MG/DL (9-23); CALCIUM LEVEL 9.3 MG/DL (8.5-10.1); CARBON DIOXIDE LEVEL 28 MMOL/L (20-31); CHLORIDE LEVEL 106 MMOL/L (98-107); CPK CREATINE PHOSPHOKINASE 63 U/L (34-145); CREATININE FOR GFR 0.83 MG/DL (0.55-1.30); GLOMERULAR FILTRATION RATE > 60.0 (>51); GLUCOSE, FASTING 86 MG/DL (60-100); POTASSIUM SERUM 4.1 MMOL/L (3.5-5.1); SODIUM LEVEL 139 MMOL/L (136-145); TOTAL PROTEIN 7.2 G/DL (5.7-8.2)
== END 2022-05-19 12:35 | disposition home or self-care (01) ==
LOC: M INFU 07:01
PROVIDERS: ATTEND Internal Medicine Rheumatology
DX: M33.90 Dermatopolymyositis, unspecified, organ involvement unspecified (principal)
CPT/HCPCS: 36592; 80053; 82550; 85025; 96365; 96366; J1459

== ENCOUNTER 2022-05-20 06:55 | Outpatient (CLI) | payer BC ==
[~2022-05-20] VITALS: Ht 170.2 cm; Wt 87.0 kg
[~2022-05-20 06:55] MED LIST changes: -ALBUTEROL SULFATE 2.5MG/0.5ML INH NEB SOLN INH PRN; -EPINEPHrine INJ 1 MG/ML 1ML AMP IM PRN; -diphenhydrAMINE 50MG/ML VIAL IV PRN; -methylPREDNISolone 125MG 2ML VIAL IV PRN
[2022-05-20] MEDS ORDERED: diphenhydrAMINE 50MG/ML VIAL IV PRN (07:01)
[2022-05-20] MEDS ORDERED: EPINEPHrine INJ 1 MG/ML 1ML AMP IM PRN (07:01)
[2022-05-20] MEDS ORDERED: ALBUTEROL SULFATE 2.5MG/0.5ML INH NEB SOLN INH PRN (07:01)
[2022-05-20] MEDS ORDERED: methylPREDNISolone 125MG 2ML VIAL IV PRN (07:01)
[2022-05-20 07:02] VITALS: BP 142/84
[2022-05-20] MEDS ORDERED: diphenhydrAMINE 25MG CAP PO ONE (07:30)
[2022-05-20] MEDS ORDERED: IMMUNE GLOBULIN 10% 40 GM in IV 1 EA IV ONE (07:30)
[2022-05-20] MEDS ORDERED: IMMUNE GLOBULIN 10% 20 GM in IV 1 EA IV ONE (07:30)
[2022-05-20] MEDS ORDERED: methylPREDNISolone 125MG 2ML VIAL IV ONE (07:30)
[2022-05-20] MEDS ORDERED: ACETAMINOPHEN TAB 650MG DOSE (2X325MG) PO ONE (07:30)
[2022-05-20] MEDS ORDERED: IMMUNE GLOBULIN 10% 10 GM in IV 1 EA IV ONE (07:30)
[2022-05-20] MEDS ORDERED: IMMUNE GLOBULIN 10% 5 GM in IV 1 EA IV ONE (07:30)
[2022-05-20] MEDS ORDERED: NS 1,000 ML IV SCH (07:30)
[2022-05-20 08:00] VITALS: BP 144/85
[2022-05-20 08:30] VITALS: BP 162/94
[2022-05-20 09:30] VITALS: BP 170/89
[2022-05-20 10:30] VITALS: BP 139/82
[2022-05-20 12:13] VITALS: BP 168/98
== END 2022-05-20 12:15 | disposition home or self-care (01) ==
LOC: M INFU 06:55
PROVIDERS: ATTEND Internal Medicine Rheumatology
DX: M33.90 Dermatopolymyositis, unspecified, organ involvement unspecified (principal)
CPT/HCPCS: 96365; 96366; J1459

== ENCOUNTER → 2022-05-28 | Outpatient (CLI) | payer BC | LOC: M CARPUL 08:37 | PROVIDERS: ATTEND Internal Medicine Rheumatology | DX: M33.90 Dermatopolymyositis, unspecified, organ involvement unspecified (principal) ==

== ENCOUNTER 2022-06-16 07:10 | Outpatient (CLI) | payer BC ==
[~2022-06-16] VITALS: Ht 170.2 cm; Wt 76.7 kg
[2022-06-16 07:10] VITALS: BP 151/89
[~2022-06-16 07:10] MED LIST changes: +ALBUTEROL SULFATE 2.5MG/0.5ML INH NEB SOLN INH PRN; +EPINEPHrine INJ 1 MG/ML 1ML AMP IM PRN; +NS 1,000 ML IV SCH; +diphenhydrAMINE 50MG/ML VIAL IV PRN; +methylPREDNISolone 125MG 2ML VIAL IV PRN
[2022-06-16] MEDS ORDERED: IMMUNE GLOBULIN 10% 5 GM in IV 1 EA IV ONE (07:30)
[2022-06-16] MEDS ORDERED: IMMUNE GLOBULIN 10% 20 GM in IV 1 EA IV ONE (07:30)
[2022-06-16] MEDS ORDERED: IMMUNE GLOBULIN 10% 10 GM in IV 1 EA IV ONE (07:30)
[2022-06-16] MEDS ORDERED: methylPREDNISolone 125MG 2ML VIAL IV ONE (07:30)
[2022-06-16] MEDS ORDERED: ACETAMINOPHEN TAB 650MG DOSE (2X325MG) PO ONE (07:30)
[2022-06-16] MEDS ORDERED: diphenhydrAMINE 25MG CAP PO ONE (07:30)
[2022-06-16] MEDS ORDERED: IMMUNE GLOBULIN 10% 40 GM in IV 1 EA IV ONE (07:30)
[2022-06-16 08:30] VITALS: BP 149/82
[2022-06-16 09:00] VITALS: BP 146/88
[2022-06-16 10:00] VITALS: BP 159/82
[2022-06-16 11:00] VITALS: BP 143/87
[2022-06-16 12:30] VITALS: BP 156/88
== END 2022-06-16 12:30 | disposition home or self-care (01) ==
LOC: M INFU 07:10
PROVIDERS: ATTEND Internal Medicine Rheumatology
DX: M33.10 Other dermatomyositis, organ involvement unspecified (principal)
CPT/HCPCS: 96365; 96366; J1459; J2930

== ENCOUNTER 2022-06-17 06:50 | Outpatient (CLI) | payer BC ==
[~2022-06-17] VITALS: Ht 170.2 cm; Wt 76.7 kg
[~2022-06-17 06:50] MED LIST changes: -ALBUTEROL SULFATE 2.5MG/0.5ML INH NEB SOLN INH PRN; -EPINEPHrine INJ 1 MG/ML 1ML AMP IM PRN; -NS 1,000 ML IV SCH; -diphenhydrAMINE 50MG/ML VIAL IV PRN; -methylPREDNISolone 125MG 2ML VIAL IV PRN
[2022-06-17] MEDS ORDERED: methylPREDNISolone 125MG 2ML VIAL IV PRN (07:01)
[2022-06-17] MEDS ORDERED: ALBUTEROL SULFATE 2.5MG/0.5ML INH NEB SOLN INH PRN (07:01)
[2022-06-17] MEDS ORDERED: EPINEPHrine INJ 1 MG/ML 1ML AMP IM PRN (07:01)
[2022-06-17] MEDS ORDERED: diphenhydrAMINE 50MG/ML VIAL IV PRN (07:01)
[2022-06-17 07:10] VITALS: BP 162/88
[2022-06-17 07:30] VITALS: BP 165/74
[2022-06-17] MEDS ORDERED: methylPREDNISolone 125MG 2ML VIAL IV ONE (07:30)
[2022-06-17] MEDS ORDERED: IMMUNE GLOBULIN 10% 10 GM in IV 1 EA IV ONE (07:30)
[2022-06-17] MEDS ORDERED: diphenhydrAMINE 25MG CAP PO ONE (07:30)
[2022-06-17] MEDS ORDERED: IMMUNE GLOBULIN 10% 40 GM in IV 1 EA IV ONE (07:30)
[2022-06-17] MEDS ORDERED: ACETAMINOPHEN TAB 650MG DOSE (2X325MG) PO ONE (07:30)
[2022-06-17] MEDS ORDERED: IMMUNE GLOBULIN 10% 5 GM in IV 1 EA IV ONE (07:30)
[2022-06-17] MEDS ORDERED: IMMUNE GLOBULIN 10% 20 GM in IV 1 EA IV ONE (07:30)
[2022-06-17] MEDS ORDERED: NS 1,000 ML IV SCH (07:30)
[2022-06-17 08:30] VITALS: BP 170/91
[2022-06-17 11:46] VITALS: BP 164/80
== END 2022-06-17 11:45 | disposition home or self-care (01) ==
LOC: M INFU 06:50
PROVIDERS: ATTEND Internal Medicine Rheumatology
DX: M33.10 Other dermatomyositis, organ involvement unspecified (principal)
CPT/HCPCS: 96365; 96366; J1459; J2930

== ENCOUNTER → 2022-07-28 | Outpatient (CLI) | payer BC ==
[~2022-07-28] MED LIST changes: -HYDR200T3; +HYDR200T46
[2022-07-28 08:12] LABS: BASO # 0.1 10^3/uL (0.0-0.2); BASO % 0.8 % (0.0-1.0); EOS # 0.2 10^3/uL (0.0-0.5); EOS % 2.4 % (0.0-3.0); HEMATOCRIT 39.5 % (36.0-47.0); HEMOGLOBIN 12.6 g/dl (12.0-15.5); LYMPH # 1.4 10^3/uL (1.5-5.0); LYMPH % 22.8 % (24.0-44.0); MEAN CORPUSCULAR HEMOGLOBIN 28.3 pg (27.0-33.0); MEAN CORPUSCULAR HGB CONC 31.9 g/dl (32.0-36.5); MEAN CORPUSCULAR VOLUME 88.8 fl (80.0-96.0); MONO # 0.5 10^3/uL (0.0-0.8); MONO % 7.7 % (2.0-8.0); NEUTROPHILS % 65.8 % (36.0-66.0); PLATELET COUNT, AUTOMATED 252 10^3/uL (150-450); RED BLOOD COUNT 4.45 10^6/uL (4.00-5.40); WHITE BLOOD COUNT 6.1 10^3/uL (4.0-10.0)
[2022-07-28 08:26] LABS: FOLATE 16.5 NG/ML (>5.4)
[2022-07-28 08:27] LABS: THYROID STIMULATING HORMONE 4.222 uIU/ML (0.55-4.78); TOTAL 25(OH) VITAMIN D 68.1 NG/ML (20.0-100.0); VITAMIN B12 LEVEL 898 PG/ML (211-911)
[2022-07-28 08:28] LABS: FREE T4 1.13 NG/DL (0.89-1.76)
[2022-07-28 08:51] LABS: ALBUMIN 3.5 G/DL (3.2-5.2); ALKALINE PHOSPHATASE 92 U/L (46-116); ALT/SGPT 19 U/L (7.0-40); AST/SGOT 14 U/L (<34); BILIRUBIN,TOTAL 0.4 MG/DL (0.3-1.2); BLOOD UREA NITROGEN 13 MG/DL (9-23); CALCIUM LEVEL 9.2 MG/DL (8.5-10.1); CARBON DIOXIDE LEVEL 26 MMOL/L (20-31); CHLORIDE LEVEL 108 MMOL/L (98-107); CREATININE FOR GFR 0.84 MG/DL (0.55-1.30); GLOMERULAR FILTRATION RATE > 60.0 (>51); GLUCOSE, FASTING 86 MG/DL (60-100); POTASSIUM SERUM 4.1 MMOL/L (3.5-5.1); SODIUM LEVEL 141 MMOL/L (136-145); TOTAL PROTEIN 6.9 G/DL (5.7-8.2)
== END ==
LOC: M LAB 07:08
PROVIDERS: ATTEND Physician Assistant
DX: E03.9 Hypothyroidism, unspecified (principal); M33.13 Other dermatomyositis without myopathy

== ENCOUNTER → 2022-07-30 | Outpatient (CLI) | payer BC ==
[~2022-07-30] VITALS: Ht 170.2 cm; Wt 76.7 kg
[~2022-07-30] MED LIST changes: +ALBUTEROL SULFATE 2.5MG/0.5ML INH NEB SOLN INH PRN; +EPINEPHrine INJ 1 MG/ML 1ML AMP IM PRN; +IMMUNE GLOBULIN 10% 10 GM in IV 1 EA IV ONE; +IMMUNE GLOBULIN 10% 20 GM in IV 1 EA IV ONE; +IMMUNE GLOBULIN 10% 40 GM in IV 1 EA IV ONE; +IMMUNE GLOBULIN 10% 5 GM in IV 1 EA IV ONE; +NS 1,000 ML IV SCH; +diphenhydrAMINE 25MG CAP PO ONE; +diphenhydrAMINE 50MG/ML VIAL IV PRN; +methylPREDNISolone 125MG 2ML VIAL IV ONE; +methylPREDNISolone 125MG 2ML VIAL IV PRN
[2022-07-30 07:15] VITALS: BP 138/89; O2SAT 97
[2022-07-30 12:30] VITALS: BP 148/80; O2SAT 98
== END ==
LOC: M INFU 06:36
PROVIDERS: ATTEND Internal Medicine Rheumatology
DX: M33.10 Other dermatomyositis, organ involvement unspecified (principal)
CPT/HCPCS: 96365; 96366; 96367; J1459; J2930

== ENCOUNTER 2022-07-31 06:53 | Outpatient (CLI) | payer BC ==
[~2022-07-31] VITALS: Ht 170.2 cm; Wt 76.7 kg
[~2022-07-31 06:53] MED LIST changes: -ALBUTEROL SULFATE 2.5MG/0.5ML INH NEB SOLN INH PRN; -EPINEPHrine INJ 1 MG/ML 1ML AMP IM PRN; -IMMUNE GLOBULIN 10% 10 GM in IV 1 EA IV ONE; -IMMUNE GLOBULIN 10% 20 GM in IV 1 EA IV ONE; -IMMUNE GLOBULIN 10% 40 GM in IV 1 EA IV ONE; -IMMUNE GLOBULIN 10% 5 GM in IV 1 EA IV ONE; -NS 1,000 ML IV SCH; -diphenhydrAMINE 25MG CAP PO ONE; -diphenhydrAMINE 50MG/ML VIAL IV PRN; -methylPREDNISolone 125MG 2ML VIAL IV ONE; -methylPREDNISolone 125MG 2ML VIAL IV PRN
[2022-07-31] MEDS ORDERED: methylPREDNISolone 125MG 2ML VIAL IV ONE (07:00)
[2022-07-31] MEDS ORDERED: IMMUNE GLOBULIN 10% 40 GM in IV 1 EA IV ONE (07:00)
[2022-07-31] MEDS ORDERED: diphenhydrAMINE 25MG CAP PO ONE (07:00)
[2022-07-31] MEDS ORDERED: IMMUNE GLOBULIN 10% 10 GM in IV 1 EA IV ONE (07:00)
[2022-07-31] MEDS ORDERED: IMMUNE GLOBULIN 10% 20 GM in IV 1 EA IV ONE (07:00)
[2022-07-31] MEDS ORDERED: IMMUNE GLOBULIN 10% 5 GM in IV 1 EA IV ONE (07:00)
[2022-07-31] MEDS ORDERED: diphenhydrAMINE 50MG/ML VIAL IV PRN (07:01)
[2022-07-31] MEDS ORDERED: methylPREDNISolone 125MG 2ML VIAL IV PRN (07:01)
[2022-07-31] MEDS ORDERED: ALBUTEROL SULFATE 2.5MG/0.5ML INH NEB SOLN INH PRN (07:01)
[2022-07-31] MEDS ORDERED: EPINEPHrine INJ 1 MG/ML 1ML AMP IM PRN (07:01)
[2022-07-31 07:10] VITALS: BP 188/88; O2SAT 96
[2022-07-31 07:40] VITALS: BP 127/75; O2SAT 95
[2022-07-31 08:10] VITALS: BP 125/72; O2SAT 97
[2022-07-31 08:45] VITALS: BP 143/82; O2SAT 99
[2022-07-31 10:40] VITALS: BP 158/88; O2SAT 98
== END 2022-07-31 12:20 | disposition home or self-care (01) ==
LOC: M INFU 06:53
PROVIDERS: ATTEND Internal Medicine Rheumatology
DX: M33.10 Other dermatomyositis, organ involvement unspecified (principal)
CPT/HCPCS: 96365; 96366; 96367; J1459; J2930

== ENCOUNTER → 2022-08-21 | Outpatient (REF) | payer BC | LOC: M SFHCDERM 17:47 | PROVIDERS: ATTEND Physician Assistant | DX: D22.5 Melanocytic nevi of trunk (principal) ==

== ENCOUNTER 2022-09-08 07:05 | Outpatient (CLI) | payer BC ==
[~2022-09-08] VITALS: Ht 170.2 cm; Wt 89.0 kg
[2022-09-08 07:05] VITALS: BP 167/83; O2SAT 98
[~2022-09-08 07:05] MED LIST changes: +ALBUTEROL SULFATE 2.5MG/0.5ML INH NEB SOLN INH PRN; +CURRENT HEIGHT AND WEIGHT NEEDED ON PATIENT XX SCH; +EPINEPHrine INJ 1 MG/ML 1ML AMP IM PRN; +diphenhydrAMINE 50MG/ML VIAL IV PRN; +methylPREDNISolone 125MG 2ML VIAL IV PRN
[2022-09-08] MEDS ORDERED: NS 1,000 ML IV SCH (07:30)
[2022-09-08] MEDS ORDERED: IMMUNE GLOBULIN 10% 40 GM in IV 1 EA IV ONE ×2 (07:30→10:05)
[2022-09-08] MEDS ORDERED: IMMUNE GLOBULIN 10% 5 GM in IV 1 EA IV ONE ×2 (07:30→10:05)
[2022-09-08] MEDS ORDERED: IMMUNE GLOBULIN 10% 10 GM in IV 1 EA IV ONE ×2 (07:30→10:05)
[2022-09-08] MEDS ORDERED: IMMUNE GLOBULIN 10% 20 GM in IV 1 EA IV ONE ×2 (07:30→10:05)
[2022-09-08] MEDS ORDERED: diphenhydrAMINE 25MG CAP PO ONE (07:30)
[2022-09-08] MEDS ORDERED: methylPREDNISolone 125MG 2ML VIAL IV ONE (07:30)
[2022-09-08 10:30] VITALS: BP 140/73; O2SAT 97
[2022-09-08 11:30] VITALS: BP 132/81; O2SAT 97
[2022-09-08 12:30] VITALS: BP 145/82; O2SAT 96
[2022-09-08 13:30] VITALS: BP 139/80; O2SAT 98
[2022-09-08 14:40] VITALS: BP 157/82; O2SAT 97
== END 2022-09-08 15:00 | disposition home or self-care (01) ==
LOC: M INFU 07:05
PROVIDERS: ATTEND Internal Medicine Rheumatology
DX: M33.10 Other dermatomyositis, organ involvement unspecified (principal)
CPT/HCPCS: 96365; 96366; J1459; J2930

== ENCOUNTER 2022-09-09 07:15 | Outpatient (CLI) | payer BC ==
[~2022-09-09] VITALS: Ht 170.2 cm; Wt 89.0 kg
[~2022-09-09 07:15] MED LIST changes: -ALBUTEROL SULFATE 2.5MG/0.5ML INH NEB SOLN INH PRN; -CURRENT HEIGHT AND WEIGHT NEEDED ON PATIENT XX SCH; -EPINEPHrine INJ 1 MG/ML 1ML AMP IM PRN; -diphenhydrAMINE 50MG/ML VIAL IV PRN; -methylPREDNISolone 125MG 2ML VIAL IV PRN
[2022-09-09 07:20] VITALS: BP 136/78; O2SAT 98
[2022-09-09] MEDS ORDERED: ALBUTEROL SULFATE 2.5MG/0.5ML INH NEB SOLN INH PRN (07:30)
[2022-09-09] MEDS ORDERED: diphenhydrAMINE 25MG CAP PO ONE (07:30)
[2022-09-09] MEDS ORDERED: methylPREDNISolone 125MG 2ML VIAL IV ONE (07:30)
[2022-09-09] MEDS ORDERED: NS 1,000 ML IV SCH (07:30)
[2022-09-09] MEDS ORDERED: diphenhydrAMINE 50MG/ML VIAL IV PRN (07:30)
[2022-09-09] MEDS ORDERED: IMMUNE GLOBULIN 10% 10 GM in IV 1 EA IV ONE (07:30)
[2022-09-09] MEDS ORDERED: IMMUNE GLOBULIN 10% 5 GM in IV 1 EA IV ONE (07:30)
[2022-09-09] MEDS ORDERED: EPINEPHrine INJ 1 MG/ML 1ML AMP IM PRN (07:30)
[2022-09-09] MEDS ORDERED: methylPREDNISolone 125MG 2ML VIAL IV PRN (07:30)
[2022-09-09] MEDS ORDERED: IMMUNE GLOBULIN 10% 20 GM in IV 1 EA IV ONE (07:30)
[2022-09-09] MEDS ORDERED: IMMUNE GLOBULIN 10% 40 GM in IV 1 EA IV ONE (07:30)
[2022-09-09 08:15] VITALS: BP 143/77; O2SAT 100
[2022-09-09 08:45] VITALS: BP 181/85; O2SAT 98
[2022-09-09] MEDS ORDERED: CURRENT HEIGHT AND WEIGHT NEEDED ON PATIENT XX SCH (09:00)
[2022-09-09 09:15] VITALS: BP 130/80; O2SAT 100
[2022-09-09 10:15] VITALS: BP 128/88; O2SAT 98
[2022-09-09 12:05] VITALS: BP 130/80; O2SAT 97
== END 2022-09-09 12:20 | disposition home or self-care (01) ==
LOC: M INFU 07:15
PROVIDERS: ATTEND Internal Medicine Rheumatology
DX: M33.10 Other dermatomyositis, organ involvement unspecified (principal)
CPT/HCPCS: 96365; 96366; 96367; J1459; J2930

== ENCOUNTER 2022-10-20 07:05 | Outpatient (CLI) | payer BC ==
[~2022-10-20] VITALS: Ht 170.2 cm; Wt 91.0 kg
[~2022-10-20 07:05] MED LIST changes: +ALBUTEROL SULFATE 2.5MG/0.5ML INH NEB SOLN INH PRN; +CURRENT HEIGHT AND WEIGHT NEEDED ON PATIENT XX SCH; +EPINEPHrine INJ 1 MG/ML 1ML AMP IM PRN; +diphenhydrAMINE 50MG/ML VIAL IV PRN; +methylPREDNISolone 125MG 2ML VIAL IV PRN
[2022-10-20 07:15] VITALS: BP 167/94; O2SAT 100
[2022-10-20] MEDS ORDERED: IMMUNE GLOBULIN 10% 10 GM in IV 1 EA IV ONE (07:15)
[2022-10-20] MEDS ORDERED: IMMUNE GLOBULIN 10% 5 GM in IV 1 EA IV ONE (07:15)
[2022-10-20] MEDS ORDERED: IMMUNE GLOBULIN 10% 20 GM in IV 1 EA IV ONE (07:15)
[2022-10-20] MEDS ORDERED: IMMUNE GLOBULIN 10% 40 GM in IV 1 EA IV ONE (07:15)
[2022-10-20] MEDS ORDERED: methylPREDNISolone 125MG 2ML VIAL IV ONE (07:30)
[2022-10-20] MEDS ORDERED: diphenhydrAMINE 25MG CAP PO ONE (07:30)
[2022-10-20] MEDS ORDERED: NS 1,000 ML IV SCH (07:30)
[2022-10-20 08:30] VITALS: BP 164/88; O2SAT 99
[2022-10-20 10:00] VITALS: BP 138/76; O2SAT 96
[2022-10-20 12:00] VITALS: BP 142/82; O2SAT 97
== END 2022-10-20 12:30 ==
LOC: M INFU 07:05
PROVIDERS: ATTEND Internal Medicine Rheumatology
DX: M33.90 Dermatopolymyositis, unspecified, organ involvement unspecified (principal); Z79.82 Long term (current) use of aspirin; Z79.899 Other long term (current) drug therapy
CPT/HCPCS: 96365; 96366; J1459; J2930

== ENCOUNTER 2022-10-21 07:10 | Outpatient (CLI) | payer BC ==
[~2022-10-21] VITALS: Ht 170.2 cm; Wt 93.0 kg
[~2022-10-21 07:10] MED LIST changes: -CURRENT HEIGHT AND WEIGHT NEEDED ON PATIENT XX SCH
[2022-10-21] MEDS ORDERED: IMMUNE GLOBULIN 10% 5 GM in IV 1 EA IV ONE (07:35)
[2022-10-21] MEDS ORDERED: IMMUNE GLOBULIN 10% 20 GM in IV 1 EA IV ONE (07:35)
[2022-10-21] MEDS ORDERED: IMMUNE GLOBULIN 10% 40 GM in IV 1 EA IV ONE (07:35)
[2022-10-21] MEDS ORDERED: IMMUNE GLOBULIN 10% 10 GM in IV 1 EA IV ONE (07:35)
[2022-10-21] MEDS ORDERED: methylPREDNISolone 125MG 2ML VIAL IV ONE (07:40)
[2022-10-21] MEDS ORDERED: NS 1,000 ML IV SCH (07:40)
[2022-10-21] MEDS ORDERED: diphenhydrAMINE 25MG PO PRIOR TO INFUSION PO ONE (07:40)
[2022-10-21 08:09] VITALS: BP 167/93; O2SAT 99
[2022-10-21 08:30] VITALS: BP 170/87; O2SAT 97
[2022-10-21 09:30] VITALS: BP_SYST 138; BP_SYST 140; BP_DIAS 80; BP_DIAS 88; O2SAT 100
[2022-10-21 11:00] VITALS: BP 150/60; O2SAT 98
[2022-10-21 12:00] VITALS: BP 148/84; O2SAT 99
== END 2022-10-21 12:30 | disposition home or self-care (01) ==
LOC: M INFU 07:10
PROVIDERS: ATTEND Internal Medicine Rheumatology
DX: M33.90 Dermatopolymyositis, unspecified, organ involvement unspecified (principal)
CPT/HCPCS: 96365; 96366; 96367; J1459; J2930

== ENCOUNTER 2022-12-01 07:22 | Outpatient (CLI) | payer BC ==
[~2022-12-01] VITALS: Ht 170.2 cm; Wt 92.1 kg
[~2022-12-01 07:22] MED LIST changes: +NS 1,000 ML IV SCH
[2022-12-01 07:30] VITALS: BP 154/81; O2SAT 98
[2022-12-01] MEDS ORDERED: methylPREDNISolone 125MG 2ML VIAL IV ONE (07:30)
[2022-12-01] MEDS ORDERED: diphenhydrAMINE 25MG PO PRIOR TO INFUSION PO ONE (07:30)
[2022-12-01] MEDS ORDERED: IMMUNE GLOBULIN 10% 40 GM in IV 1 EA IV ONE (07:45)
[2022-12-01] MEDS ORDERED: IMMUNE GLOBULIN 10% 20 GM in IV 1 EA IV ONE (07:45)
[2022-12-01] MEDS ORDERED: IMMUNE GLOBULIN 10% 5 GM in IV 1 EA IV ONE (07:45)
[2022-12-01] MEDS ORDERED: IMMUNE GLOBULIN 10% 10 GM in IV 1 EA IV ONE (07:45)
[2022-12-01 08:40] VITALS: BP 147/89; O2SAT 100
[2022-12-01 09:10] VITALS: BP 133/86; O2SAT 98
[2022-12-01 10:40] VITALS: BP 141/83; O2SAT 98
[2022-12-01 11:40] VITALS: BP 148/89; O2SAT 98
[2022-12-01 12:55] VITALS: BP 150/88; O2SAT 97
[2022-12-02] MEDS ORDERED: NS 1,000 ML IV SCH (07:35)
== END 2022-12-01 13:00 | disposition home or self-care (01) ==
LOC: M INFU 07:22
PROVIDERS: ATTEND Internal Medicine Rheumatology
DX: M33.10 Other dermatomyositis, organ involvement unspecified (principal)
CPT/HCPCS: 96365; 96366; J1459; J2930

== ENCOUNTER 2022-12-02 07:21 | Outpatient (CLI) | payer BC ==
[2022-12-02] VITALS (8 sets, daily range): BP systolic 128–157; BP diastolic 76–89; O2SAT 97–100
[~2022-12-02] VITALS: Ht 170.2 cm; Wt 93.6 kg
[~2022-12-02 07:21] MED LIST changes: -NS 1,000 ML IV SCH
[2022-12-02] MEDS ORDERED: IMMUNE GLOBULIN 10% 10 GM in IV 1 EA IV ONE (07:35)
[2022-12-02] MEDS ORDERED: NS 1,000 ML IV SCH ×2 (07:35)
[2022-12-02] MEDS ORDERED: methylPREDNISolone 125MG 2ML VIAL IV ONE (07:35)
[2022-12-02] MEDS ORDERED: IMMUNE GLOBULIN 10% 20 GM in IV 1 EA IV ONE (07:35)
[2022-12-02] MEDS ORDERED: IMMUNE GLOBULIN 10% 5 GM in IV 1 EA IV ONE (07:35)
[2022-12-02] MEDS ORDERED: IMMUNE GLOBULIN 10% 40 GM in IV 1 EA IV ONE (07:35)
[2022-12-02] MEDS ORDERED: diphenhydrAMINE 25MG PO PRIOR TO INFUSION PO ONE (07:35)
== END 2022-12-02 13:06 | disposition home or self-care (01) ==
LOC: M INFU 07:21
PROVIDERS: ATTEND Internal Medicine Rheumatology
DX: M33.10 Other dermatomyositis, organ involvement unspecified (principal)
CPT/HCPCS: 96365; 96366; 96367; J1459; J2930

== ENCOUNTER 2023-01-12 07:20 | Outpatient (CLI) | payer BC ==
[~2023-01-12] VITALS: Ht 170.2 cm; Wt 90.9 kg
[2023-01-12 07:15] VITALS: BP 131/88; O2SAT 98
[2023-01-12] MEDS ORDERED: NS 1,000 ML IV SCH (07:30)
[2023-01-12] MEDS ORDERED: methylPREDNISolone 125MG 2ML VIAL IV ONE (07:30)
[2023-01-12] MEDS ORDERED: IMMUNE GLOBULIN 10% 10 GM in IV 1 EA IV ONE (07:30)
[2023-01-12] MEDS ORDERED: IMMUNE GLOBULIN 10% 5 GM in IV 1 EA IV ONE (07:30)
[2023-01-12] MEDS ORDERED: diphenhydrAMINE 25MG CAP PO ONE (07:30)
[2023-01-12] MEDS ORDERED: IMMUNE GLOBULIN 10% 40 GM in IV 1 EA IV ONE (07:30)
[2023-01-12] MEDS ORDERED: IMMUNE GLOBULIN 10% 20 GM in IV 1 EA IV ONE (07:30)
[2023-01-12 08:30] VITALS: BP 144/70; O2SAT 97
[2023-01-12 09:00] VITALS: BP 145/77; O2SAT 97
[2023-01-12 09:30] VITALS: BP 133/87; O2SAT 98
[2023-01-12 11:30] VITALS: BP 147/72; O2SAT 98
[2023-01-12 12:45] VITALS: BP 160/84; O2SAT 95
== END 2023-01-12 12:45 | disposition home or self-care (01) ==
LOC: M INFU 07:20
PROVIDERS: ATTEND Internal Medicine Rheumatology
DX: M33.10 Other dermatomyositis, organ involvement unspecified (principal)
CPT/HCPCS: 96365; 96366; 96367; J1459; J2930

== ENCOUNTER 2023-01-13 07:20 | Outpatient (CLI) | payer BC ==
[~2023-01-13] VITALS: Ht 170.2 cm; Wt 89.0 kg
[2023-01-13 07:20] VITALS: BP 144/83; O2SAT 97
[2023-01-13] MEDS ORDERED: IMMUNE GLOBULIN 10% 10 GM in IV 1 EA IV ONE (07:30)
[2023-01-13] MEDS ORDERED: methylPREDNISolone 125MG 2ML VIAL IV ONE (07:30)
[2023-01-13] MEDS ORDERED: NS 1,000 ML IV SCH (07:30)
[2023-01-13] MEDS ORDERED: IMMUNE GLOBULIN 10% 20 GM in IV 1 EA IV ONE (07:30)
[2023-01-13] MEDS ORDERED: IMMUNE GLOBULIN 10% 5 GM in IV 1 EA IV ONE (07:30)
[2023-01-13] MEDS ORDERED: IMMUNE GLOBULIN 10% 40 GM in IV 1 EA IV ONE (07:30)
[2023-01-13] MEDS ORDERED: diphenhydrAMINE 25MG CAP PO ONE (07:30)
[2023-01-13 08:30] VITALS: BP 143/80; O2SAT 98
[2023-01-13 10:49] VITALS: BP 140/81; O2SAT 99
[2023-01-13 11:49] VITALS: BP 145/82; O2SAT 99
[2023-01-13 12:49] VITALS: BP 148/86; O2SAT 96
== END 2023-01-13 12:51 | disposition home or self-care (01) ==
LOC: M INFU 07:20
PROVIDERS: ATTEND Internal Medicine Rheumatology
DX: M33.10 Other dermatomyositis, organ involvement unspecified (principal)
CPT/HCPCS: 96365; 96366; 96367; J1459; J2930

== ENCOUNTER → 2023-01-28 | Outpatient (REF) | payer BC ==
[~2023-01-28] MED LIST changes: -ALBUTEROL SULFATE 2.5MG/0.5ML INH NEB SOLN INH PRN; -EPINEPHrine INJ 1 MG/ML 1ML AMP IM PRN; -diphenhydrAMINE 50MG/ML VIAL IV PRN; -methylPREDNISolone 125MG 2ML VIAL IV PRN
== END ==
LOC: M SFHCDERM 10:13
PROVIDERS: ATTEND Physician Assistant
DX: L72.3 Sebaceous cyst (principal)

== ENCOUNTER → 2023-02-11 | Outpatient (CLI) | payer BC, SELFPAY ==
[2023-02-11 08:04] LABS: BASO # 0.1 10^3/uL (0.0-0.2); BASO % 0.9 % (0.0-1.0); EOS # 0.1 10^3/uL (0.0-0.5); EOS % 2.2 % (0.0-3.0); HEMATOCRIT 40.8 % (36.0-47.0); HEMOGLOBIN 12.9 g/dl (12.0-15.5); LYMPH # 1.6 10^3/uL (1.5-5.0); LYMPH % 28.6 % (24.0-44.0); MEAN CORPUSCULAR HGB CONC 31.6 g/dl (32.0-36.5); MEAN CORPUSCULAR VOLUME 88.5 fl (80.0-96.0); MONO # 0.4 10^3/uL (0.0-0.8); NEUTROPHILS # 3.3 10^3/uL (1.5-8.5); NEUTROPHILS % 59.9 % (36.0-66.0); PLATELET COUNT, AUTOMATED 276 10^3/uL (150-450); RED BLOOD COUNT 4.61 10^6/uL (4.00-5.40); WHITE BLOOD COUNT 5.5 10^3/uL (4.0-10.0)
[2023-02-11 08:14] LABS: ALBUMIN 3.4 G/DL (3.2-5.2); ALKALINE PHOSPHATASE 77 U/L (46-116); ALT/SGPT 19 U/L (7.0-40); AST/SGOT 17 U/L (<34); BILIRUBIN,TOTAL 0.4 MG/DL (0.3-1.2); BLOOD UREA NITROGEN 16 MG/DL (9-23); CALCIUM LEVEL 9.4 MG/DL (8.5-10.1); CARBON DIOXIDE LEVEL 28 MMOL/L (20-31); CHLORIDE LEVEL 109 MMOL/L (98-107); CHOLESTEROL LEVEL 193 MG/DL (<200); CREATININE FOR GFR 0.84 MG/DL (0.55-1.30); GLOMERULAR FILTRATION RATE > 60.0 (>51); GLUCOSE, FASTING 88 MG/DL (60-100); HDL CHOLESTEROL 53.6 MG/DL (>40); LDL CHOLESTEROL 120.8 MG/DL (<100); NON-HDL-C 139.4 MG/DL; POTASSIUM SERUM 4.4 MMOL/L (3.5-5.1); SODIUM LEVEL 141 MMOL/L (136-145); TOTAL PROTEIN 7.2 G/DL (5.7-8.2); TRIGLYCERIDES LEVEL 93 MG/DL (<150)
[2023-02-11 08:15] LABS: FOLATE 18.8 NG/ML (>5.4); THYROID STIMULATING HORMONE 2.957 uIU/ML (0.55-4.78); TOTAL 25(OH) VITAMIN D 77.5 NG/ML (20.0-100.0)
[2023-02-11 08:16] LABS: VITAMIN B12 LEVEL 1109 PG/ML (211-911)
== END ==
LOC: M LAB 07:17
PROVIDERS: ATTEND Physician Assistant
DX: E03.9 Hypothyroidism, unspecified (principal); Z79.899 Other long term (current) drug therapy; M33.13 Other dermatomyositis without myopathy

== ENCOUNTER 2023-02-23 07:14 | Outpatient (CLI) | payer BC ==
[~2023-02-23] VITALS: Ht 170.2 cm; Wt 91.7 kg
[~2023-02-23 07:14] MED LIST changes: +ALBUTEROL SULFATE 2.5MG/0.5ML INH NEB SOLN INH PRN; +EPINEPHrine INJ 1 MG/ML 1ML AMP IM PRN; +NS 1,000 ML IV SCH; +diphenhydrAMINE 50MG/ML VIAL IV PRN; +methylPREDNISolone 125MG 2ML VIAL IV PRN
[2023-02-23 07:15] VITALS: BP 139/88; O2SAT 99
[2023-02-23] MEDS ORDERED: diphenhydrAMINE 25MG PO PRIOR TO INFUSION PO ONE (07:30)
[2023-02-23] MEDS ORDERED: IMMUNE GLOBULIN 10% 40 GM in IV 1 EA IV ONE (07:30)
[2023-02-23] MEDS ORDERED: IMMUNE GLOBULIN 10% 20 GM in IV 1 EA IV ONE (07:30)
[2023-02-23] MEDS ORDERED: IMMUNE GLOBULIN 10% 10 GM in IV 1 EA IV ONE (07:30)
[2023-02-23] MEDS ORDERED: methylPREDNISolone 125MG 2ML VIAL IV ONE (07:30)
[2023-02-23] MEDS ORDERED: IMMUNE GLOBULIN 10% 5 GM in IV 1 EA IV ONE (07:30)
[2023-02-23 08:30] VITALS: BP 145/86; O2SAT 98
[2023-02-23 09:00] VITALS: BP_SYST 158; BP_DIAS 8; BP_DIAS 84; O2SAT 99
[2023-02-23 09:30] VITALS: BP 163/83; O2SAT 97
[2023-02-23 11:30] VITALS: BP 163/93; O2SAT 98
[2023-02-23 12:45] VITALS: BP 135/76; O2SAT 96
== END 2023-02-23 12:45 ==
LOC: M INFU 07:14
PROVIDERS: ATTEND Internal Medicine Rheumatology
DX: M33.90 Dermatopolymyositis, unspecified, organ involvement unspecified (principal)
CPT/HCPCS: 96365; 96366; J1459

== ENCOUNTER 2023-02-24 07:02 | Outpatient (CLI) | payer BC ==
[~2023-02-24] VITALS: Ht 170.2 cm; Wt 90.9 kg
[~2023-02-24 07:02] MED LIST changes: -NS 1,000 ML IV SCH
[2023-02-24] MEDS ORDERED: IMMUNE GLOBULIN 10% 40 GM in IV 1 EA IV ONE (07:30)
[2023-02-24] MEDS ORDERED: methylPREDNISolone 125MG 2ML VIAL IV ONE (07:30)
[2023-02-24] MEDS ORDERED: IMMUNE GLOBULIN 10% 5 GM in IV 1 EA IV ONE (07:30)
[2023-02-24] MEDS ORDERED: IMMUNE GLOBULIN 10% 10 GM in IV 1 EA IV ONE (07:30)
[2023-02-24] MEDS ORDERED: diphenhydrAMINE 25MG PO PRIOR TO INFUSION PO ONE (07:30)
[2023-02-24] MEDS ORDERED: NS 1,000 ML IV SCH (07:30)
[2023-02-24] MEDS ORDERED: IMMUNE GLOBULIN 10% 20 GM in IV 1 EA IV ONE (07:30)
[2023-02-24 07:39] VITALS: BP 148/81; O2SAT 98
[2023-02-24 08:20] VITALS: BP 140/78; O2SAT 99
[2023-02-24 08:50] VITALS: BP 168/86; O2SAT 98
[2023-02-24 10:20] VITALS: BP 144/81; O2SAT 100
[2023-02-24 11:20] VITALS: BP 143/85; O2SAT 97
[2023-02-24 12:50] VITALS: BP 141/83; O2SAT 97
== END 2023-02-24 13:00 | disposition home or self-care (01) ==
LOC: M INFU 07:02
PROVIDERS: ATTEND Internal Medicine Rheumatology
DX: M33.90 Dermatopolymyositis, unspecified, organ involvement unspecified (principal)
CPT/HCPCS: 96365; 96366; 96367; J1459; J2930

== ENCOUNTER 2023-04-06 07:15 | Outpatient (CLI) | payer BC ==
[2023-04-06 07:15] VITALS: BP 148/93; O2SAT 99
[2023-04-06] MEDS: methylPREDNISolone 125MG 2ML VIAL IV ONE (07:27)
[2023-04-06] MEDS ORDERED: NS 1,000 ML IV SCH (07:30)
[2023-04-06] MEDS ORDERED: diphenhydrAMINE 25MG CAP PO ONE (07:30)
[2023-04-06] MEDS: IMMUNE GLOBULIN 10% 10 GM in IV 1 EA IV ONE (07:42)
[2023-04-06] MEDS: IMMUNE GLOBULIN 10% 40 GM in IV 1 EA IV ONE (07:43)
[2023-04-06] MEDS: IMMUNE GLOBULIN 10% 20 GM in IV 1 EA IV ONE (07:44)
[2023-04-06] MEDS: IMMUNE GLOBULIN 10% 5 GM in IV 1 EA IV ONE (07:45)
[2023-04-06 08:30] VITALS: BP 157/78; O2SAT 99
[2023-04-06 09:00] VITALS: BP 148/70; O2SAT 98
[2023-04-06 10:30] VITALS: BP 133/85; O2SAT 98
[2023-04-06 11:30] VITALS: BP 164/84; O2SAT 96
[2023-04-06 12:12] VITALS: BP 146/84; O2SAT 96
== END 2023-04-06 12:30 ==
LOC: M INFU 07:15
PROVIDERS: ATTEND Internal Medicine Rheumatology
DX: M33.90 Dermatopolymyositis, unspecified, organ involvement unspecified (principal)
CPT/HCPCS: 96365; 96366; 96367; J1459; J2930

== ENCOUNTER 2023-04-07 07:15 | Outpatient (CLI) | payer BC ==
[~2023-04-07] VITALS: Ht 170.2 cm; Wt 92.3 kg
[2023-04-07 07:15] VITALS: BP 170/82; O2SAT 97
[2023-04-07] MEDS ORDERED: NS 1,000 ML IV SCH (07:30)
[2023-04-07] MEDS: methylPREDNISolone 125MG 2ML VIAL IV ONE (07:30)
[2023-04-07] MEDS: IMMUNE GLOBULIN 10% 20 GM in IV 1 EA IV ONE (07:36)
[2023-04-07] MEDS: IMMUNE GLOBULIN 10% 40 GM in IV 1 EA IV ONE (07:37)
[2023-04-07] MEDS: IMMUNE GLOBULIN 10% 10 GM in IV 1 EA IV ONE (07:38)
[2023-04-07] MEDS: IMMUNE GLOBULIN 10% 5 GM in IV 1 EA IV ONE (07:42)
[2023-04-07] MEDS: diphenhydrAMINE 25MG CAP PO ONE (07:47)
[2023-04-07 08:00] VITALS: BP 170/81; O2SAT 98
[2023-04-07 09:00] VITALS: BP 162/88; O2SAT 100
[2023-04-07 10:00] VITALS: BP 146/80; O2SAT 100
[2023-04-07 12:05] VITALS: BP 142/89; O2SAT 95
== END 2023-04-07 12:10 | disposition home or self-care (01) ==
LOC: M INFU 07:15
PROVIDERS: ATTEND Internal Medicine Rheumatology
DX: M33.90 Dermatopolymyositis, unspecified, organ involvement unspecified (principal)
CPT/HCPCS: 96365; 96366; 96367; J1459; J2930

== ENCOUNTER → 2023-05-19 | Outpatient (CLI) | payer BC ==
[~2023-05-19] VITALS: Ht 170.2 cm; Wt 92.5 kg
[~2023-05-19] MED LIST changes: +NS 1,000 ML IV SCH; +diphenhydrAMINE 25MG CAP PO ONE
[2023-05-19 07:45] VITALS: BP 149/82; O2SAT 98
[2023-05-19] MEDS: methylPREDNISolone 125MG 2ML VIAL IV ONE (07:46)
[2023-05-19] MEDS: IMMUNE GLOBULIN 10% 20 GM in IV 1 EA IV ONE (08:09)
[2023-05-19] MEDS: IMMUNE GLOBULIN 10% 40 GM in IV 1 EA IV ONE (08:11)
[2023-05-19] MEDS: IMMUNE GLOBULIN 10% 5 GM in IV 1 EA IV ONE (08:12)
[2023-05-19] MEDS: IMMUNE GLOBULIN 10% 10 GM in IV 1 EA IV ONE (08:13)
[2023-05-19 08:30] VITALS: BP 134/87; O2SAT 100
[2023-05-19 09:00] VITALS: BP 134/75; O2SAT 100
[2023-05-19 09:30] VITALS: BP 145/80; O2SAT 98
[2023-05-19 11:30] VITALS: BP 138/94; O2SAT 96
[2023-05-19 12:25] VITALS: BP 144/77; O2SAT 98
== END ==
LOC: M INFU 06:56
PROVIDERS: ATTEND Internal Medicine Rheumatology
DX: M33.90 Dermatopolymyositis, unspecified, organ involvement unspecified (principal)
CPT/HCPCS: 96365; 96366; 96367; J1459; J2919

== ENCOUNTER 2023-05-20 06:59 | Outpatient (CLI) | payer BC ==
[~2023-05-20] VITALS: Ht 170.2 cm; Wt 92.5 kg
[~2023-05-20 06:59] MED LIST changes: -ALBUTEROL SULFATE 2.5MG/0.5ML INH NEB SOLN INH PRN; -EPINEPHrine INJ 1 MG/ML 1ML AMP IM PRN; -NS 1,000 ML IV SCH; -diphenhydrAMINE 25MG CAP PO ONE; -diphenhydrAMINE 50MG/ML VIAL IV PRN; -methylPREDNISolone 125MG 2ML VIAL IV PRN
[2023-05-20 07:00] VITALS: BP 155/82; O2SAT 98
[2023-05-20] MEDS ORDERED: diphenhydrAMINE 50MG/ML VIAL IV PRN (07:00)
[2023-05-20] MEDS ORDERED: diphenhydrAMINE 25MG CAP PO ONE (07:00)
[2023-05-20] MEDS ORDERED: NS 1,000 ML IV SCH (07:00)
[2023-05-20] MEDS ORDERED: methylPREDNISolone 125MG 2ML VIAL IV PRN (07:00)
[2023-05-20] MEDS ORDERED: EPINEPHrine INJ 1 MG/ML 1ML AMP IM PRN (07:00)
[2023-05-20] MEDS ORDERED: ALBUTEROL SULFATE 2.5MG/0.5ML INH NEB SOLN INH PRN (07:00)
[2023-05-20] MEDS: methylPREDNISolone 125MG 2ML VIAL IV ONE (07:06)
[2023-05-20] MEDS: IMMUNE GLOBULIN 10% 40 GM in IV 1 EA IV ONE (07:38)
[2023-05-20] MEDS: IMMUNE GLOBULIN 10% 5 GM in IV 1 EA IV ONE (07:39)
[2023-05-20] MEDS: IMMUNE GLOBULIN 10% 20 GM in IV 1 EA IV ONE (07:40)
[2023-05-20] MEDS: IMMUNE GLOBULIN 10% 10 GM in IV 1 EA IV ONE (07:40)
[2023-05-20 08:30] VITALS: BP 144/71; O2SAT 100
[2023-05-20 09:30] VITALS: BP 149/84; O2SAT 97
[2023-05-20 10:30] VITALS: BP 170/76; O2SAT 97
[2023-05-20 12:05] VITALS: BP 169/80; O2SAT 98
== END 2023-05-20 12:05 ==
LOC: M INFU 06:59
PROVIDERS: ATTEND Internal Medicine Rheumatology
DX: M33.90 Dermatopolymyositis, unspecified, organ involvement unspecified (principal)
CPT/HCPCS: 96365; 96366; 96367; J1459; J2919

== ENCOUNTER 2023-06-29 07:26 | Outpatient (CLI) | payer BC ==
[2023-06-29] VITALS (7 sets, daily range): BP systolic 133–166; BP diastolic 77–91; O2SAT 97–100
[~2023-06-29] VITALS: Ht 170.2 cm; Wt 91.8 kg
[~2023-06-29 07:26] MED LIST changes: +ALBUTEROL SULFATE 2.5MG/0.5ML INH NEB SOLN INH PRN; +EPINEPHrine INJ 1 MG/ML 1ML AMP IM PRN; +NS 1,000 ML IV SCH; +diphenhydrAMINE 50MG/ML VIAL IV PRN; +methylPREDNISolone 125MG 2ML VIAL IV PRN
[2023-06-29] MEDS ORDERED: diphenhydrAMINE 25MG PO PRIOR TO INFUSION PO ONE (08:00)
[2023-06-29] MEDS: methylPREDNISolone 125MG 2ML VIAL IV ONE (08:05)
[2023-06-29] MEDS: IMMUNE GLOBULIN 10% 40 GM in IV 1 EA IV ONE (08:10)
[2023-06-29] MEDS: IMMUNE GLOBULIN 10% 5 GM in IV 1 EA IV ONE (08:20)
[2023-06-29] MEDS: IMMUNE GLOBULIN 10% 10 GM in IV 1 EA IV ONE (08:21)
[2023-06-29] MEDS: IMMUNE GLOBULIN 10% 20 GM in IV 1 EA IV ONE (08:22)
== END 2023-06-29 12:55 | disposition home or self-care (01) ==
LOC: M INFU 07:26
PROVIDERS: ATTEND Internal Medicine Rheumatology
DX: M33.90 Dermatopolymyositis, unspecified, organ involvement unspecified (principal)
CPT/HCPCS: 96365; 96366; 96367; J1459; J2919

== ENCOUNTER 2023-06-30 07:15 | Outpatient (CLI) | payer BC ==
[2023-06-30 07:15] VITALS: BP 143/80; O2SAT 99
[~2023-06-30 07:15] MED LIST changes: +IMMUNE GLOBULIN 10% 10 GM in IV 1 EA IV ONE; +IMMUNE GLOBULIN 10% 20 GM in IV 1 EA IV ONE; +IMMUNE GLOBULIN 10% 40 GM in IV 1 EA IV ONE; +IMMUNE GLOBULIN 10% 5 GM in IV 1 EA IV ONE
[2023-06-30] MEDS: IMMUNE GLOBULIN 10% 40 GM in IV 1 EA IV ONE (07:34)
[2023-06-30] MEDS: IMMUNE GLOBULIN 10% 20 GM in IV 1 EA IV ONE (07:35)
[2023-06-30] MEDS: methylPREDNISolone 125MG 2ML VIAL IV ONE (07:35)
[2023-06-30] MEDS: IMMUNE GLOBULIN 10% 10 GM in IV 1 EA IV ONE (07:35)
[2023-06-30] MEDS: IMMUNE GLOBULIN 10% 5 GM in IV 1 EA IV ONE (07:36)
[2023-06-30] MEDS ORDERED: diphenhydrAMINE 25MG PO PRIOR TO INFUSION PO ONE (08:00)
[2023-06-30 08:15] VITALS: BP 145/82; O2SAT 98
[2023-06-30 08:45] VITALS: BP 153/85; O2SAT 98
[2023-06-30 10:15] VITALS: BP 157/84; O2SAT 98
[2023-06-30 11:15] VITALS: BP 148/76; O2SAT 99
[2023-06-30 12:10] VITALS: BP 142/62; O2SAT 99
== END 2023-06-30 12:10 | disposition home or self-care (01) ==
LOC: M INFU 07:15
PROVIDERS: ATTEND Internal Medicine Rheumatology
DX: M33.90 Dermatopolymyositis, unspecified, organ involvement unspecified (principal)
CPT/HCPCS: 96365; 96366; 96367; J1459; J2919

== ENCOUNTER 2023-08-10 09:00 | Outpatient (CLI) | payer BC ==
[2023-08-10 09:00] VITALS: BP 162/81; O2SAT 98
[~2023-08-10 09:00] MED LIST changes: -IMMUNE GLOBULIN 10% 10 GM in IV 1 EA IV ONE; -IMMUNE GLOBULIN 10% 20 GM in IV 1 EA IV ONE; -IMMUNE GLOBULIN 10% 40 GM in IV 1 EA IV ONE; -IMMUNE GLOBULIN 10% 5 GM in IV 1 EA IV ONE
[2023-08-10] MEDS: methylPREDNISolone 125MG 2ML VIAL IV ONE (09:27)
[2023-08-10] MEDS: IMMUNE GLOBULIN 10% 40 GM in IV 1 EA IV ONE (09:31)
[2023-08-10] MEDS: IMMUNE GLOBULIN 10% 20 GM in IV 1 EA IV ONE (09:32)
[2023-08-10] MEDS: IMMUNE GLOBULIN 10% 10 GM in IV 1 EA IV ONE (09:33)
[2023-08-10] MEDS: diphenhydrAMINE 25MG PO PRIOR TO INFUSION PO ONE (09:34)
[2023-08-10] MEDS: IMMUNE GLOBULIN 10% 5 GM in IV 1 EA IV ONE (09:34)
[2023-08-10 10:00] VITALS: BP 165/85; O2SAT 100
[2023-08-10 10:30] VITALS: BP 151/81; O2SAT 98
[2023-08-10 11:00] VITALS: BP 151/75; O2SAT 98
[2023-08-10 12:00] VITALS: BP 149/81; O2SAT 99
[2023-08-10 14:05] VITALS: BP 166/79; O2SAT 97
== END 2023-08-10 14:05 | disposition home or self-care (01) ==
LOC: M INFU 09:00
PROVIDERS: ATTEND Student in an Organized Health Care Education/Training Program
DX: M33.90 Dermatopolymyositis, unspecified, organ involvement unspecified (principal)
CPT/HCPCS: 96365; 96366; J1459; J2919

== ENCOUNTER 2023-08-11 07:55 | Outpatient (CLI) | payer BC ==
[2023-08-11] MEDS ORDERED: diphenhydrAMINE 25MG PO PRIOR TO INFUSION PO ONE (08:00)
[2023-08-11 08:05] VITALS: BP 145/80; O2SAT 100
[2023-08-11] MEDS: methylPREDNISolone 125MG 2ML VIAL IV ONE (08:07)
[2023-08-11] MEDS: IMMUNE GLOBULIN 10% 10 GM in IV 1 EA IV ONE (08:09)
[2023-08-11] MEDS: IMMUNE GLOBULIN 10% 20 GM in IV 1 EA IV ONE (08:10)
[2023-08-11] MEDS: IMMUNE GLOBULIN 10% 40 GM in IV 1 EA IV ONE (08:11)
[2023-08-11] MEDS: IMMUNE GLOBULIN 10% 5 GM in IV 1 EA IV ONE (08:12)
[2023-08-11 08:45] VITALS: BP 140/70; O2SAT 100
[2023-08-11 09:15] VITALS: BP 154/77; O2SAT 97
[2023-08-11 09:45] VITALS: BP 149/78; O2SAT 98
[2023-08-11 10:45] VITALS: BP 165/78; O2SAT 96
[2023-08-11 11:45] VITALS: BP 152/70; O2SAT 98
== END 2023-08-11 13:20 ==
LOC: M INFU 07:55
PROVIDERS: ATTEND Student in an Organized Health Care Education/Training Program
DX: M33.90 Dermatopolymyositis, unspecified, organ involvement unspecified (principal)
CPT/HCPCS: 96365; 96366; 96367; J1459; J2919

== ENCOUNTER → 2023-08-27 | Outpatient (CLI) | payer BC ==
[~2023-08-27] MED LIST changes: -ALBUTEROL SULFATE 2.5MG/0.5ML INH NEB SOLN INH PRN; -EPINEPHrine INJ 1 MG/ML 1ML AMP IM PRN; -NS 1,000 ML IV SCH; -diphenhydrAMINE 50MG/ML VIAL IV PRN; -methylPREDNISolone 125MG 2ML VIAL IV PRN
[2023-08-27 09:14] LABS: BASO # 0.1 10^3/uL (0.0-0.2); EOS # 0.1 10^3/uL (0.0-0.5); EOS % 2.2 % (0.0-3.0); HEMATOCRIT 39.7 % (36.0-47.0); HEMOGLOBIN 12.8 g/dl (12.0-15.5); LYMPH # 1.2 10^3/uL (1.5-5.0); LYMPH % 23.2 % (24.0-44.0); MEAN CORPUSCULAR HEMOGLOBIN 28.5 pg (27.0-33.0); MEAN CORPUSCULAR HGB CONC 32.2 g/dl (32.0-36.5); MEAN CORPUSCULAR VOLUME 88.4 fl (80.0-96.0); MONO # 0.5 10^3/uL (0.0-0.8); MONO % 10.1 % (2.0-8.0); NEUTROPHILS # 3.1 10^3/uL (1.5-8.5); NEUTROPHILS % 63.1 % (36.0-66.0); PLATELET COUNT, AUTOMATED 231 10^3/uL (150-450); RED BLOOD COUNT 4.49 10^6/uL (4.00-5.40)
[2023-08-27 09:52] LABS: FOLATE 14.6 NG/ML (>5.4)
[2023-08-27 09:53] LABS: ALBUMIN 3.5 G/DL (3.2-5.2); ALKALINE PHOSPHATASE 84 U/L (46-116); ALT/SGPT 31 U/L (7.0-40); AST/SGOT 14 U/L (<34); BILIRUBIN,TOTAL 0.4 MG/DL (0.3-1.2); BLOOD UREA NITROGEN 14 MG/DL (9-23); CARBON DIOXIDE LEVEL 30 MMOL/L (20-31); CHLORIDE LEVEL 108 MMOL/L (98-107); CHOLESTEROL LEVEL 197 MG/DL (<200); CHOLESTEROL RISK RATIO 4.37 (<5); CREATININE FOR GFR 0.85 MG/DL (0.55-1.30); GLOMERULAR FILTRATION RATE > 60.0 (>51); GLUCOSE, FASTING 86 MG/DL (60-100); LDL CHOLESTEROL 134.4 MG/DL (<100); POTASSIUM SERUM 4.4 MMOL/L (3.5-5.1); SODIUM LEVEL 142 MMOL/L (136-145); TOTAL 25(OH) VITAMIN D 77.2 NG/ML (20.0-100.0); TOTAL PROTEIN 7.6 G/DL (5.7-8.2); TRIGLYCERIDES LEVEL 88 MG/DL (<150)
[2023-08-27 09:54] LABS: FREE T4 1.19 NG/DL (0.89-1.76)
[2023-08-27 09:56] LABS: VITAMIN B12 LEVEL 1303 PG/ML (211-911)
== END ==
LOC: M LAB 08:23
PROVIDERS: ATTEND Physician Assistant
DX: E03.9 Hypothyroidism, unspecified (principal); M33.13 Other dermatomyositis without myopathy

== ENCOUNTER 2023-09-21 08:30 | Outpatient (CLI) | payer BC ==
[2023-09-21] VITALS (7 sets, daily range): BP systolic 139–168; BP diastolic 79–91; O2SAT 96–99
[~2023-09-21] VITALS: Ht 170.2 cm; Wt 90.0 kg
[2023-09-21] MEDS: methylPREDNISolone 125MG 2ML VIAL IV ONE (08:06)
[2023-09-21] MEDS: IMMUNE GLOBULIN 10% 40 GM in IV 1 EA IV ONE (08:28)
[2023-09-21] MEDS: IMMUNE GLOBULIN 10% 20 GM in IV 1 EA IV ONE (08:29)
[~2023-09-21 08:30] MED LIST changes: +ALBUTEROL SULFATE 2.5MG/0.5ML INH NEB SOLN INH PRN; +EPINEPHrine INJ 1 MG/ML 1ML AMP IM PRN; +NS 1,000 ML IV SCH; +diphenhydrAMINE 25MG PO PRIOR TO INFUSION PO ONE; +diphenhydrAMINE 50MG/ML VIAL IV PRN; +methylPREDNISolone 125MG 2ML VIAL IV PRN
[2023-09-21] MEDS: IMMUNE GLOBULIN 10% 10 GM in IV 1 EA IV ONE (08:30)
[2023-09-21] MEDS: IMMUNE GLOBULIN 10% 5 GM in IV 1 EA IV ONE (08:31)
== END 2023-09-21 13:20 ==
LOC: M INFU 08:30
PROVIDERS: ATTEND Student in an Organized Health Care Education/Training Program
DX: M33.90 Dermatopolymyositis, unspecified, organ involvement unspecified (principal)
CPT/HCPCS: 96365; 96366; 96367; J1459; J2919

== ENCOUNTER 2023-09-22 08:00 | Outpatient (CLI) | payer BC ==
[2023-09-22] MEDS: methylPREDNISolone 125MG 2ML VIAL IV ONE (08:20)
[2023-09-22] MEDS: IMMUNE GLOBULIN 10% 40 GM in IV 1 EA IV ONE (08:36)
[2023-09-22] MEDS: IMMUNE GLOBULIN 10% 5 GM in IV 1 EA IV ONE (08:39)
[2023-09-22] MEDS: IMMUNE GLOBULIN 10% 10 GM in IV 1 EA IV ONE (08:40)
[2023-09-22] MEDS: IMMUNE GLOBULIN 10% 20 GM in IV 1 EA IV ONE (08:41)
[2023-09-22 09:15] VITALS: BP 150/80; O2SAT 98
[2023-09-22 09:45] VITALS: BP 138/70; O2SAT 99
[2023-09-22 10:15] VITALS: BP 140/76; O2SAT 100
[2023-09-22 11:15] VITALS: BP 167/84; O2SAT 98
[2023-09-22 12:15] VITALS: BP 150/81; O2SAT 99
[2023-09-22 13:35] VITALS: BP 140/80; O2SAT 100
== END 2023-09-22 13:40 ==
LOC: M INFU 08:00
PROVIDERS: ATTEND Student in an Organized Health Care Education/Training Program
DX: M33.90 Dermatopolymyositis, unspecified, organ involvement unspecified (principal)
CPT/HCPCS: 96365; 96366; 96367; J1459; J2919

== ENCOUNTER → 2023-10-24 | Outpatient (CLI) | payer BC ==
[~2023-10-24] MED LIST changes: -ALBUTEROL SULFATE 2.5MG/0.5ML INH NEB SOLN INH PRN; -EPINEPHrine INJ 1 MG/ML 1ML AMP IM PRN; -NS 1,000 ML IV SCH; -diphenhydrAMINE 25MG PO PRIOR TO INFUSION PO ONE; -diphenhydrAMINE 50MG/ML VIAL IV PRN; -methylPREDNISolone 125MG 2ML VIAL IV PRN
== END ==
LOC: M RAD 11:10
PROVIDERS: ATTEND Physician Assistant
DX: M79.671 Pain in right foot (principal)

== ENCOUNTER 2023-11-19 09:00 | Outpatient (CLI) | payer BC ==
[~2023-11-19] VITALS: Ht 170.2 cm; Wt 90.0 kg
[2023-11-19 08:55] VITALS: BP 139/80; O2SAT 100
[~2023-11-19 09:00] MED LIST changes: +ALBUTEROL SULFATE 2.5MG/0.5ML INH NEB SOLN INH PRN; +EPINEPHrine INJ 1 MG/ML 1ML AMP IM PRN; +diphenhydrAMINE 50MG/ML VIAL IV PRN; +methylPREDNISolone 125MG 2ML VIAL IV PRN
[2023-11-19] MEDS: methylPREDNISolone 125MG 2ML VIAL IV ONE (09:04)
[2023-11-19 09:05] VITALS: BP 139/80; O2SAT 100
[2023-11-19] MEDS: IMMUNE GLOBULIN 10% 40 GM in IV 1 EA IV ONE (09:24)
[2023-11-19] MEDS: IMMUNE GLOBULIN 10% 5 GM in IV 1 EA IV ONE (09:25)
[2023-11-19] MEDS: IMMUNE GLOBULIN 10% 10 GM in IV 1 EA IV ONE (09:26)
[2023-11-19] MEDS: IMMUNE GLOBULIN 10% 20 GM in IV 1 EA IV ONE (09:27)
[2023-11-19] MEDS: diphenhydrAMINE 25MG PO PRIOR TO INFUSION PO ONE (09:28)
[2023-11-19 10:00] VITALS: BP 137/71; O2SAT 97
[2023-11-19 10:30] VITALS: BP 140/73; O2SAT 97
[2023-11-19 11:00] VITALS: BP 138/73; O2SAT 99
[2023-11-19 13:59] VITALS: BP 147/87; O2SAT 97
[2023-11-20] MEDS ORDERED: methylPREDNISolone 125MG 2ML VIAL IV PRN (07:00)
[2023-11-20] MEDS ORDERED: diphenhydrAMINE 50MG/ML VIAL IV PRN (07:00)
[2023-11-20] MEDS ORDERED: ALBUTEROL SULFATE 2.5MG/0.5ML INH NEB SOLN INH PRN (07:00)
[2023-11-20] MEDS ORDERED: EPINEPHrine INJ 1 MG/ML 1ML AMP IM PRN (07:00)
[2023-11-20] MEDS ORDERED: diphenhydrAMINE 25MG PO PRIOR TO INFUSION PO ONE (09:00)
[2023-11-20] MEDS ORDERED: methylPREDNISolone 125MG 2ML VIAL IV ONE (09:00)
[2023-11-20] MEDS ORDERED: IMMUNE GLOBULIN 10% 5 GM in IV 1 EA IV ONE (09:00)
== END 2023-11-19 14:00 ==
LOC: M INFU 09:00
PROVIDERS: ATTEND Student in an Organized Health Care Education/Training Program
DX: M33.10 Other dermatomyositis, organ involvement unspecified (principal)
CPT/HCPCS: 96365; 96366; 96367; J1459; J2919

== ENCOUNTER 2023-11-20 09:00 | Outpatient (CLI) | payer BC ==
[~2023-11-20] VITALS: Ht 170.2 cm; Wt 90.0 kg
[2023-11-20 09:00] VITALS: BP 158/78; O2SAT 98
[~2023-11-20 09:00] MED LIST changes: +diphenhydrAMINE 25MG PO PRIOR TO INFUSION PO ONE
[2023-11-20] MEDS: methylPREDNISolone 125MG 2ML VIAL IV ONE (09:11)
[2023-11-20] MEDS: IMMUNE GLOBULIN 10% 5 GM in IV 1 EA IV ONE (09:36)
[2023-11-20] MEDS: IMMUNE GLOBULIN 10% 40 GM in IV 1 EA IV ONE (09:38)
[2023-11-20] MEDS: IMMUNE GLOBULIN 10% 20 GM in IV 1 EA IV ONE (09:40)
[2023-11-20] MEDS: IMMUNE GLOBULIN 10% 10 GM in IV 1 EA IV ONE (09:42)
[2023-11-20 10:15] VITALS: BP 140/76; O2SAT 100
[2023-11-20 10:45] VITALS: BP 139/87; O2SAT 100
[2023-11-20 11:15] VITALS: BP 153/70; O2SAT 97
[2023-11-20 12:15] VITALS: BP 142/82; O2SAT 98
[2023-11-20 14:20] VITALS: BP 140/90; O2SAT 99
== END 2023-11-20 14:25 ==
LOC: M INFU 09:00
PROVIDERS: ATTEND Student in an Organized Health Care Education/Training Program
DX: M33.10 Other dermatomyositis, organ involvement unspecified (principal)
CPT/HCPCS: 96365; 96366; 96367; J1459; J2919

== ENCOUNTER → 2023-12-21 | Outpatient (CLI) | payer BC ==
[~2023-12-21] MED LIST changes: -ALBUTEROL SULFATE 2.5MG/0.5ML INH NEB SOLN INH PRN; -EPINEPHrine INJ 1 MG/ML 1ML AMP IM PRN; -diphenhydrAMINE 25MG PO PRIOR TO INFUSION PO ONE; -diphenhydrAMINE 50MG/ML VIAL IV PRN; -methylPREDNISolone 125MG 2ML VIAL IV PRN
[2023-12-21 09:48] LABS: BLOOD UREA NITROGEN 17 MG/DL (9-23); CALCIUM LEVEL 9.6 MG/DL (8.5-10.1); CARBON DIOXIDE LEVEL 29 MMOL/L (20-31); CHLORIDE LEVEL 108 MMOL/L (98-107); CREATININE FOR GFR 0.82 MG/DL (0.55-1.30); GLOMERULAR FILTRATION RATE > 60.0 (>51); GLUCOSE, FASTING 86 MG/DL (60-100); POTASSIUM SERUM 4.2 MMOL/L (3.5-5.1); SODIUM LEVEL 141 MMOL/L (136-145)
== END ==
LOC: M LAB 08:48
PROVIDERS: ATTEND Student in an Organized Health Care Education/Training Program
DX: M33.13 Other dermatomyositis without myopathy (principal)

== ENCOUNTER 2023-12-31 07:50 | Outpatient (CLI) | payer BC ==
[2023-12-31 08:00] VITALS: BP 158/87; O2SAT 99
[2023-12-31] MEDS ORDERED: ALBUTEROL SULFATE 2.5MG/0.5ML INH NEB SOLN INH PRN (08:00)
[2023-12-31] MEDS ORDERED: EPINEPHrine INJ 1 MG/ML 1ML AMP IM PRN (08:00)
[2023-12-31] MEDS ORDERED: methylPREDNISolone 125MG 2ML VIAL IV PRN (08:00)
[2023-12-31] MEDS ORDERED: diphenhydrAMINE 50MG/ML VIAL IV PRN (08:00)
[2023-12-31] MEDS ORDERED: diphenhydrAMINE 25MG PO PRIOR TO INFUSION PO ONE (08:00)
[2023-12-31] MEDS: methylPREDNISolone 125MG 2ML VIAL IV ONE (08:07)
[2023-12-31] MEDS: IMMUNE GLOBULIN 10% 40 GM in IV 1 EA IV ONE (08:09)
[2023-12-31] MEDS: IMMUNE GLOBULIN 10% 20 GM in IV 1 EA IV ONE (08:10)
[2023-12-31] MEDS: IMMUNE GLOBULIN 10% 10 GM in IV 1 EA IV ONE (08:11)
[2023-12-31] MEDS: IMMUNE GLOBULIN 10% 5 GM in IV 1 EA IV ONE (08:12)
[2023-12-31 08:45] VITALS: BP 137/79; O2SAT 98
[2023-12-31 09:15] VITALS: BP 133/81; O2SAT 99
[2023-12-31 09:45] VITALS: BP 137/76; O2SAT 96
[2023-12-31 10:45] VITALS: BP 142/80; O2SAT 100
[2023-12-31 13:05] VITALS: BP 138/82; O2SAT 97
== END 2023-12-31 13:05 ==
LOC: M INFU 07:50
PROVIDERS: ATTEND Student in an Organized Health Care Education/Training Program
DX: M33.90 Dermatopolymyositis, unspecified, organ involvement unspecified (principal)
CPT/HCPCS: 96365; 96366; 96375; J1459; J2919

== ENCOUNTER 2024-01-01 07:30 | Outpatient (CLI) | payer BC ==
[2024-01-01] VITALS (7 sets, daily range): BP systolic 127–149; BP diastolic 72–84; O2SAT 97–99
[~2024-01-01] VITALS: Ht 170.2 cm; Wt 88.6 kg
[2024-01-01] MEDS: methylPREDNISolone 125MG 2ML VIAL IV ONE (07:58)
[2024-01-01] MEDS ORDERED: diphenhydrAMINE 50MG/ML VIAL IV PRN (08:00)
[2024-01-01] MEDS ORDERED: EPINEPHrine INJ 1 MG/ML 1ML AMP IM PRN (08:00)
[2024-01-01] MEDS ORDERED: diphenhydrAMINE 25MG PO PRIOR TO INFUSION PO ONE (08:00)
[2024-01-01] MEDS ORDERED: NS 1,000 ML IV SCH (08:00)
[2024-01-01] MEDS ORDERED: ALBUTEROL SULFATE 2.5MG/0.5ML INH NEB SOLN INH PRN (08:00)
[2024-01-01] MEDS ORDERED: methylPREDNISolone 125MG 2ML VIAL IV PRN (08:00)
[2024-01-01] MEDS: IMMUNE GLOBULIN 10% 40 GM in IV 1 EA IV ONE (08:02)
[2024-01-01] MEDS: IMMUNE GLOBULIN 10% 10 GM in IV 1 EA IV ONE (08:03)
[2024-01-01] MEDS: IMMUNE GLOBULIN 10% 20 GM in IV 1 EA IV ONE (08:05)
[2024-01-01] MEDS: IMMUNE GLOBULIN 10% 5 GM in IV 1 EA IV ONE (08:07)
== END 2024-01-01 13:10 ==
LOC: M INFU 07:30
PROVIDERS: ATTEND Student in an Organized Health Care Education/Training Program
DX: M33.90 Dermatopolymyositis, unspecified, organ involvement unspecified (principal)
CPT/HCPCS: 96365; 96366; 96375; J1459; J2919

== ENCOUNTER 2024-02-11 07:56 | Outpatient (CLI) | payer BC ==
[~2024-02-11] VITALS: Ht 170.2 cm; Wt 90.9 kg
[~2024-02-11 07:56] MED LIST changes: +ALBUTEROL SULFATE 2.5MG/0.5ML INH NEB SOLN INH PRN; +EPINEPHrine INJ 1 MG/ML 1ML AMP IM PRN; +NS (Normal Saline) 0.9% 1,000 ML IV SCH; +diphenhydrAMINE 50MG/ML VIAL IV PRN; +methylPREDNISolone 125MG 2ML VIAL IV PRN
[2024-02-11] MEDS ORDERED: diphenhydrAMINE 25MG PO PRIOR TO INFUSION PO ONE (08:00)
[2024-02-11] MEDS: IMMUNE GLOBULIN 10% 40 GM in IV 1 EA IV ONE (08:00)
[2024-02-11] MEDS: methylPREDNISolone 125MG 2ML VIAL IV ONE (08:03)
[2024-02-11] MEDS: IMMUNE GLOBULIN 10% 5 GM in IV 1 EA IV ONE (08:03)
[2024-02-11] MEDS: IMMUNE GLOBULIN 10% 20 GM in IV 1 EA IV ONE (08:04)
[2024-02-11] MEDS: IMMUNE GLOBULIN 10% 10 GM in IV 1 EA IV ONE (08:04)
[2024-02-11 08:30] VITALS: BP 133/74; O2SAT 98
[2024-02-11 09:00] VITALS: BP 145/71; O2SAT 100
[2024-02-11 09:30] VITALS: BP 147/78; O2SAT 100
[2024-02-11 10:30] VITALS: BP 146/77; O2SAT 97
[2024-02-11 11:30] VITALS: BP 145/73; O2SAT 97
[2024-02-11 12:40] VITALS: BP 142/69; O2SAT 96
== END 2024-02-11 12:44 ==
LOC: M INFU 07:56
PROVIDERS: ATTEND Student in an Organized Health Care Education/Training Program
DX: M33.90 Dermatopolymyositis, unspecified, organ involvement unspecified (principal)
CPT/HCPCS: 96365; 96366; 96375; J1459; J2919

== ENCOUNTER 2024-02-12 07:30 | Outpatient (CLI) | payer BC ==
[~2024-02-12] VITALS: Ht 170.2 cm; Wt 90.9 kg
[2024-02-12 07:30] VITALS: BP 172/83; O2SAT 99
[2024-02-12] MEDS: methylPREDNISolone 125MG 2ML VIAL IV ONE (07:42)
[2024-02-12] MEDS: IMMUNE GLOBULIN 10% 40 GM in IV 1 EA IV ONE (07:57)
[2024-02-12] MEDS: IMMUNE GLOBULIN 10% 20 GM in IV 1 EA IV ONE (07:58)
[2024-02-12] MEDS ORDERED: diphenhydrAMINE 25MG PO PRIOR TO INFUSION PO ONE (08:00)
[2024-02-12] MEDS: IMMUNE GLOBULIN 10% 10 GM in IV 1 EA IV ONE (08:01)
[2024-02-12] MEDS: IMMUNE GLOBULIN 10% 5 GM in IV 1 EA IV ONE (08:01)
[2024-02-12 08:30] VITALS: BP 153/77; O2SAT 100
[2024-02-12 09:00] VITALS: BP 149/76; O2SAT 100
[2024-02-12 09:30] VITALS: BP 162/76; O2SAT 99
[2024-02-12 11:30] VITALS: BP 168/70; O2SAT 99
[2024-02-12 12:40] VITALS: BP 145/85; O2SAT 96
== END 2024-02-12 12:40 ==
LOC: M INFU 07:30
PROVIDERS: ATTEND Student in an Organized Health Care Education/Training Program
DX: M33.90 Dermatopolymyositis, unspecified, organ involvement unspecified (principal)
CPT/HCPCS: 96365; 96366; 96375; J1459; J2919

== ENCOUNTER → 2024-03-24 | Outpatient (CLI) | payer BC ==
[~2024-03-24] VITALS: Ht 170.2 cm; Wt 91.0 kg
[~2024-03-24] MED LIST changes: -NS (Normal Saline) 0.9% 1,000 ML IV SCH; +diphenhydrAMINE 25MG CAP PO ONE
[2024-03-24] MEDS: methylPREDNISolone 125MG 2ML VIAL IV ONE (08:08)
[2024-03-24] MEDS: IMMUNE GLOBULIN 10% 20 GM in IV 1 EA IV ONE (08:21)
[2024-03-24] MEDS: IMMUNE GLOBULIN 10% 40 GM in IV 1 EA IV ONE (08:21)
[2024-03-24] MEDS: IMMUNE GLOBULIN 10% 10 GM in IV 1 EA IV ONE (08:22)
[2024-03-24] MEDS: IMMUNE GLOBULIN 10% 5 GM in IV 1 EA IV ONE (08:22)
[2024-03-24 08:45] VITALS: BP 124/78; O2SAT 97
[2024-03-24 09:15] VITALS: BP 120/73; O2SAT 100
[2024-03-24 09:45] VITALS: BP 129/71; O2SAT 100
[2024-03-24 10:45] VITALS: BP 133/81; O2SAT 100
[2024-03-24 11:45] VITALS: BP 135/73; O2SAT 98
[2024-03-24 13:15] VITALS: BP 160/77; O2SAT 97
== END ==
LOC: M INFU 07:35
PROVIDERS: ATTEND Student in an Organized Health Care Education/Training Program
DX: M33.10 Other dermatomyositis, organ involvement unspecified (principal)
CPT/HCPCS: 96365; 96366; 96375; J1459; J2919

== ENCOUNTER 2024-03-25 07:49 | Outpatient (CLI) | payer BC ==
[~2024-03-25] VITALS: Ht 170.2 cm; Wt 90.9 kg
[~2024-03-25 07:49] MED LIST changes: -diphenhydrAMINE 25MG CAP PO ONE
[2024-03-25 08:00] VITALS: BP 149/86; O2SAT 99
[2024-03-25] MEDS ORDERED: NS (Normal Saline) 0.9% 1,000 ML IV SCH (08:00)
[2024-03-25] MEDS ORDERED: diphenhydrAMINE 25MG CAP PO ONE (08:00)
[2024-03-25] MEDS: methylPREDNISolone 125MG 2ML VIAL IV ONE (08:07)
[2024-03-25] MEDS: IMMUNE GLOBULIN 10% 40 GM in IV 1 EA IV ONE (08:33)
[2024-03-25] MEDS: IMMUNE GLOBULIN 10% 20 GM in IV 1 EA IV ONE (08:34)
[2024-03-25] MEDS: IMMUNE GLOBULIN 10% 10 GM in IV 1 EA IV ONE (08:35)
[2024-03-25] MEDS: IMMUNE GLOBULIN 10% 5 GM in IV 1 EA IV ONE (08:36)
[2024-03-25 09:30] VITALS: BP 155/80; O2SAT 99
[2024-03-25 13:15] VITALS: BP 168/81; O2SAT 95
== END 2024-03-25 13:10 ==
LOC: M INFU 07:49
PROVIDERS: ATTEND Student in an Organized Health Care Education/Training Program
DX: M33.90 Dermatopolymyositis, unspecified, organ involvement unspecified (principal)
CPT/HCPCS: 96365; 96366; 96375; J1459; J2919

== ENCOUNTER 2024-05-05 07:40 | Outpatient (CLI) | payer BC ==
[~2024-05-05] VITALS: Ht 170.2 cm; Wt 89.0 kg
[~2024-05-05 07:40] MED LIST changes: -ALBUTEROL SULFATE 2.5MG/0.5ML INH NEB SOLN INH PRN; -EPINEPHrine INJ 1 MG/ML 1ML AMP IM PRN; -diphenhydrAMINE 50MG/ML VIAL IV PRN; -methylPREDNISolone 125MG 2ML VIAL IV PRN
[2024-05-05] MEDS ORDERED: ALBUTEROL SULFATE 2.5MG/0.5ML INH NEB SOLN INH PRN (08:00)
[2024-05-05] MEDS ORDERED: NS (Normal Saline) 0.9% 1,000 ML IV SCH (08:00)
[2024-05-05] MEDS ORDERED: diphenhydrAMINE 50MG/ML VIAL IV PRN (08:00)
[2024-05-05] MEDS ORDERED: methylPREDNISolone 125MG 2ML VIAL IV PRN (08:00)
[2024-05-05] MEDS ORDERED: EPINEPHrine INJ 1 MG/ML 1ML AMP IM PRN (08:00)
[2024-05-05] MEDS: methylPREDNISolone 125MG 2ML VIAL IV ONE (08:01)
[2024-05-05] MEDS: diphenhydrAMINE 25MG CAP PO ONE (08:10)
[2024-05-05] MEDS: IMMUNE GLOBULIN 10% 40 GM in IV 1 EA IV ONE (08:15)
[2024-05-05] MEDS: IMMUNE GLOBULIN 10% 10 GM in IV 1 EA IV ONE (08:16)
[2024-05-05] MEDS: IMMUNE GLOBULIN 10% 20 GM in IV 1 EA IV ONE (08:16)
[2024-05-05] MEDS: IMMUNE GLOBULIN 10% 5 GM in IV 1 EA IV ONE (08:18)
[2024-05-05 08:45] VITALS: BP 166/79; O2SAT 99
[2024-05-05 09:15] VITALS: BP 158/71; O2SAT 98
[2024-05-05 09:45] VITALS: BP 142/82; O2SAT 97
[2024-05-05 10:45] VITALS: BP 148/70; O2SAT 9
[2024-05-05 11:45] VITALS: BP 147/69; O2SAT 98
[2024-05-05 13:08] VITALS: BP 136/76; O2SAT 98
== END 2024-05-05 13:08 ==
LOC: M INFU 07:40
PROVIDERS: ATTEND Student in an Organized Health Care Education/Training Program
DX: M33.90 Dermatopolymyositis, unspecified, organ involvement unspecified (principal)
CPT/HCPCS: 96365; 96366; 96375; J1459; J2919

== ENCOUNTER 2024-05-06 07:45 | Outpatient (CLI) | payer BC ==
[~2024-05-06] VITALS: Ht 170.2 cm; Wt 89.0 kg
[2024-05-06 07:45] VITALS: BP 150/82; O2SAT 100
[~2024-05-06 07:45] MED LIST changes: +ALBUTEROL SULFATE 2.5MG/0.5ML INH NEB SOLN INH PRN; +EPINEPHrine INJ 1 MG/ML 1ML AMP IM PRN; +diphenhydrAMINE 50MG/ML VIAL IV PRN; +methylPREDNISolone 125MG 2ML VIAL IV PRN
[2024-05-06] MEDS ORDERED: diphenhydrAMINE 25MG CAP PO ONE (08:00)
[2024-05-06] MEDS: methylPREDNISolone 125MG 2ML VIAL IV ONE (08:00)
[2024-05-06] MEDS: IMMUNE GLOBULIN 10% 40 GM in IV 1 EA IV ONE (08:17)
[2024-05-06] MEDS: IMMUNE GLOBULIN 10% 20 GM in IV 1 EA IV ONE (08:18)
[2024-05-06] MEDS: IMMUNE GLOBULIN 10% 10 GM in IV 1 EA IV ONE (08:19)
[2024-05-06] MEDS: IMMUNE GLOBULIN 10% 5 GM in IV 1 EA IV ONE (08:20)
[2024-05-06 08:45] VITALS: BP 151/84; O2SAT 99
[2024-05-06 09:15] VITALS: BP 152/76; O2SAT 99
[2024-05-06 09:45] VITALS: BP 150/77; O2SAT 98
[2024-05-06 10:45] VITALS: BP 152/86; O2SAT 98
[2024-05-06 12:27] VITALS: BP 163/84; O2SAT 97
== END 2024-05-06 12:40 ==
LOC: M INFU 07:45
PROVIDERS: ATTEND Student in an Organized Health Care Education/Training Program
DX: M33.90 Dermatopolymyositis, unspecified, organ involvement unspecified (principal)
CPT/HCPCS: 96365; 96366; 96375; J1459; J2919

== ENCOUNTER 2024-06-23 09:29 | Outpatient (CLI) | payer BC ==
[~2024-06-23] VITALS: Ht 170.2 cm; Wt 88.6 kg
[~2024-06-23 09:29] MED LIST changes: +ALBUTEROL SULFATE 2.5MG/0.5ML INH CONCENTRATE NEB SOLN INH PRN; -ALBUTEROL SULFATE 2.5MG/0.5ML INH NEB SOLN INH PRN; +NS (Normal Saline) 0.9% 1,000 ML IV SCH
[2024-06-23 09:40] VITALS: BP 159/89; O2SAT 100
[2024-06-23] MEDS: methylPREDNISolone 125MG 2ML VIAL IV ONE (09:58)
[2024-06-23] MEDS ORDERED: diphenhydrAMINE 25MG PO PRIOR TO INFUSION PO ONE (10:00)
[2024-06-23] MEDS: IMMUNE GLOBULIN 10% 40 GM in IV 1 EA IV ONE (10:05)
[2024-06-23] MEDS: IMMUNE GLOBULIN 10% 20 GM in IV 1 EA IV ONE (10:08)
[2024-06-23] MEDS: IMMUNE GLOBULIN 10% 5 GM in IV 1 EA IV ONE (10:10)
[2024-06-23] MEDS: IMMUNE GLOBULIN 10% 10 GM in IV 1 EA IV ONE (10:11)
[2024-06-23 10:45] VITALS: BP 141/83; O2SAT 100
[2024-06-23 11:15] VITALS: BP 142/87; O2SAT 100
[2024-06-23 11:45] VITALS: BP 144/89; O2SAT 97
[2024-06-23 12:45] VITALS: BP 140/80; O2SAT 98
[2024-06-23 15:20] VITALS: BP 140/68; O2SAT 97
== END 2024-06-23 15:20 | disposition home or self-care (01) ==
LOC: M INFU 09:29
PROVIDERS: ATTEND Student in an Organized Health Care Education/Training Program
DX: M33.90 Dermatopolymyositis, unspecified, organ involvement unspecified (principal)
CPT/HCPCS: 96365; 96366; 96375; J1459; J2919

== ENCOUNTER 2024-06-24 06:49 | Outpatient (CLI) | payer BC ==
[~2024-06-24] VITALS: Ht 170.2 cm; Wt 88.5 kg
[~2024-06-24 06:49] MED LIST changes: -ALBUTEROL SULFATE 2.5MG/0.5ML INH CONCENTRATE NEB SOLN INH PRN; -EPINEPHrine INJ 1 MG/ML 1ML AMP IM PRN; -diphenhydrAMINE 50MG/ML VIAL IV PRN; -methylPREDNISolone 125MG 2ML VIAL IV PRN
[2024-06-24 07:00] VITALS: BP 172/80; O2SAT 95
[2024-06-24] MEDS ORDERED: diphenhydrAMINE 25MG PO PRIOR TO INFUSION PO ONE (07:00)
[2024-06-24] MEDS ORDERED: ALBUTEROL SULFATE 2.5MG/0.5ML INH CONCENTRATE NEB SOLN INH PRN (07:01)
[2024-06-24] MEDS ORDERED: methylPREDNISolone 125MG 2ML VIAL IV PRN (07:01)
[2024-06-24] MEDS ORDERED: EPINEPHrine INJ 1 MG/ML 1ML AMP IM PRN (07:01)
[2024-06-24] MEDS ORDERED: diphenhydrAMINE 50MG/ML VIAL IV PRN (07:01)
[2024-06-24] MEDS: methylPREDNISolone 125MG 2ML VIAL IV ONE (07:07)
[2024-06-24] MEDS: IMMUNE GLOBULIN 10% 40 GM in IV 1 EA IV ONE (07:12)
[2024-06-24] MEDS: IMMUNE GLOBULIN 10% 20 GM in IV 1 EA IV ONE (07:13)
[2024-06-24] MEDS: IMMUNE GLOBULIN 10% 10 GM in IV 1 EA IV ONE (07:16)
[2024-06-24] MEDS: IMMUNE GLOBULIN 10% 5 GM in IV 1 EA IV ONE (07:19)
[2024-06-24 07:52] VITALS: BP 143/70; O2SAT 96
[2024-06-24 08:19] VITALS: BP 157/74; O2SAT 97
[2024-06-24 10:00] VITALS: BP 181/75; O2SAT 95
[2024-06-24 12:00] VITALS: BP 148/71; O2SAT 95
== END 2024-06-24 12:00 | disposition home or self-care (01) ==
LOC: M INFU 06:49
PROVIDERS: ATTEND Student in an Organized Health Care Education/Training Program
DX: M33.90 Dermatopolymyositis, unspecified, organ involvement unspecified (principal)
CPT/HCPCS: 96365; 96366; 96375; J1459; J2919

== ENCOUNTER 2024-09-15 07:51 | Outpatient (CLI) | payer BC ==
[2024-09-15] VITALS (7 sets, daily range): BP systolic 116–168; BP diastolic 65–88; O2SAT 97–99
[~2024-09-15] VITALS: Ht 170.2 cm; Wt 89.2 kg
[~2024-09-15 07:51] MED LIST changes: +ALBUTEROL SULFATE 2.5 MG/0.5 ML INH CONCENTRATE NEB SOLN INH PRN; +EPINEPHrine INJ 1 MG/ML 1ML AMP IM PRN; -NS (Normal Saline) 0.9% 1,000 ML IV SCH; +diphenhydrAMINE 50 MG/ML VIAL IV PRN
[2024-09-15] MEDS ORDERED: NS (Normal Saline) 0.9% 1,000 ML IV SCH (08:00)
[2024-09-15] MEDS: IMMUNE GLOBULIN 10% 40 GM in IV 1 EA IV ONE (08:28)
[2024-09-15] MEDS: IMMUNE GLOBULIN 10% 20 GM in IV 1 EA IV ONE (08:30)
[2024-09-15] MEDS: IMMUNE GLOBULIN 10% 5 GM in IV 1 EA IV ONE (08:31)
[2024-09-15] MEDS: IMMUNE GLOBULIN 10% 10 GM in IV 1 EA IV ONE (08:32)
== END 2024-09-15 13:25 | disposition home or self-care (01) ==
LOC: M INFU 07:51
PROVIDERS: ATTEND Student in an Organized Health Care Education/Training Program
DX: M33.90 Dermatopolymyositis, unspecified, organ involvement unspecified (principal)
CPT/HCPCS: 96365; 96366; 96375; J1459; J2919

== ENCOUNTER 2024-09-16 07:48 | Outpatient (CLI) | payer BC ==
[~2024-09-16] VITALS: Ht 170.2 cm; Wt 89.2 kg
[2024-09-16 08:00] VITALS: BP 168/95; O2SAT 99
[2024-09-16] MEDS: IMMUNE GLOBULIN 10% 40 GM in IV 1 EA IV ONE (08:28)
[2024-09-16] MEDS: IMMUNE GLOBULIN 10% 10 GM in IV 1 EA IV ONE (08:30)
[2024-09-16] MEDS: IMMUNE GLOBULIN 10% 5 GM in IV 1 EA IV ONE (08:33)
[2024-09-16] MEDS: IMMUNE GLOBULIN 10% 20 GM in IV 1 EA IV ONE (08:34)
[2024-09-16 09:30] VITALS: BP 115/68; O2SAT 99
[2024-09-16 13:04] VITALS: BP 156/88; O2SAT 95
== END 2024-09-16 13:05 | disposition home or self-care (01) ==
LOC: M INFU 07:48
PROVIDERS: ATTEND Student in an Organized Health Care Education/Training Program
DX: M33.90 Dermatopolymyositis, unspecified, organ involvement unspecified (principal)
CPT/HCPCS: 96365; 96366; 96375; J1459; J2919

== ENCOUNTER 2024-11-03 07:43 | Outpatient (CLI) | payer BC ==
[~2024-11-03] VITALS: Ht 170.2 cm; Wt 89.1 kg
[~2024-11-03 07:43] MED LIST changes: -ALBUTEROL SULFATE 2.5 MG/0.5 ML INH CONCENTRATE NEB SOLN INH PRN; -EPINEPHrine INJ 1 MG/ML 1ML AMP IM PRN; -diphenhydrAMINE 50 MG/ML VIAL IV PRN
[2024-11-03 08:00] VITALS: BP 131/77; O2SAT 97
[2024-11-03] MEDS ORDERED: NS (Normal Saline) 0.9% 1,000 ML IV SCH (08:00)
[2024-11-03] MEDS ORDERED: ALBUTEROL SULFATE 2.5 MG/0.5 ML INH CONCENTRATE NEB SOLN INH PRN (08:00)
[2024-11-03] MEDS ORDERED: diphenhydrAMINE 50 MG/ML VIAL IV PRN (08:00)
[2024-11-03] MEDS ORDERED: EPINEPHrine INJ 1 MG/ML 1ML AMP IM PRN (08:00)
[2024-11-03] MEDS: IMMUNE GLOBULIN 10% 40 GM in IV 1 EA IV ONE (08:03)
[2024-11-03] MEDS: IMMUNE GLOBULIN 10% 20 GM in IV 1 EA IV ONE (08:03)
[2024-11-03] MEDS: IMMUNE GLOBULIN 10% 10 GM in IV 1 EA IV ONE (08:04)
[2024-11-03] MEDS: IMMUNE GLOBULIN 10% 5 GM in IV 1 EA IV ONE (08:05)
[2024-11-03 08:30] VITALS: BP 132/72; O2SAT 98
[2024-11-03 09:00] VITALS: BP 139/77; O2SAT 99
[2024-11-03 09:30] VITALS: BP 132/69; O2SAT 96
[2024-11-03 11:30] VITALS: BP 155/79; O2SAT 97
[2024-11-03 12:40] VITALS: BP 148/76; O2SAT 98
== END 2024-11-03 12:40 ==
LOC: M INFU 07:43
PROVIDERS: ATTEND Student in an Organized Health Care Education/Training Program
DX: M33.90 Dermatopolymyositis, unspecified, organ involvement unspecified (principal)
CPT/HCPCS: 96365; 96366; 96375; J1459; J2919

== ENCOUNTER 2024-11-04 07:43 | Outpatient (CLI) | payer BC ==
[2024-11-04] VITALS (7 sets, daily range): BP systolic 120–155; BP diastolic 73–85; O2SAT 95–99
[~2024-11-04] VITALS: Ht 170.2 cm; Wt 89.0 kg
[2024-11-04] MEDS ORDERED: ALBUTEROL SULFATE 2.5 MG/0.5 ML INH CONCENTRATE NEB SOLN INH PRN (08:00)
[2024-11-04] MEDS ORDERED: diphenhydrAMINE 50 MG/ML VIAL IV PRN (08:00)
[2024-11-04] MEDS ORDERED: EPINEPHrine INJ 1 MG/ML 1ML AMP IM PRN (08:00)
[2024-11-04] MEDS ORDERED: NS (Normal Saline) 0.9% 1,000 ML IV SCH (08:00)
[2024-11-04] MEDS: IMMUNE GLOBULIN 10% 40 GM in IV 1 EA IV ONE (08:13)
[2024-11-04] MEDS: IMMUNE GLOBULIN 10% 20 GM in IV 1 EA IV ONE (08:14)
[2024-11-04] MEDS: IMMUNE GLOBULIN 10% 10 GM in IV 1 EA IV ONE (08:15)
[2024-11-04] MEDS: IMMUNE GLOBULIN 10% 5 GM in IV 1 EA IV ONE (08:16)
== END 2024-11-04 15:10 ==
LOC: M INFU 07:43
PROVIDERS: ATTEND Student in an Organized Health Care Education/Training Program
DX: M33.90 Dermatopolymyositis, unspecified, organ involvement unspecified (principal)
CPT/HCPCS: 96365; 96366; 96375; J1459; J2919

== ENCOUNTER 2024-12-15 07:53 | Outpatient (CLI) | payer BC ==
[~2024-12-15] VITALS: Ht 170.2 cm; Wt 88.6 kg
[~2024-12-15 07:53] MED LIST changes: +ALBUTEROL SULFATE 2.5 MG/0.5 ML INH CONCENTRATE NEB SOLN INH PRN; +EPINEPHrine INJ 1 MG/ML 1ML AMP IM PRN; +NS (Normal Saline) 0.9% 1,000 ML IV SCH; +diphenhydrAMINE 50 MG/ML VIAL IV PRN
[2024-12-15] MEDS: IMMUNE GLOBULIN 10% 5 GM in IV 1 EA IV ONE (08:14)
[2024-12-15] MEDS: IMMUNE GLOBULIN 10% 40 GM in IV 1 EA IV ONE (08:14)
[2024-12-15] MEDS: IMMUNE GLOBULIN 10% 10 GM in IV 1 EA IV ONE (08:15)
[2024-12-15] MEDS: IMMUNE GLOBULIN 10% 20 GM in IV 1 EA IV ONE (08:16)
[2024-12-15 08:26] VITALS: BP 144/71; O2SAT 97
[2024-12-15 08:45] VITALS: BP 141/81; O2SAT 99
[2024-12-15 09:15] VITALS: BP 139/72; O2SAT 98
[2024-12-15 09:45] VITALS: BP 147/78; O2SAT 96
[2024-12-15 10:45] VITALS: BP 140/80; O2SAT 98
[2024-12-15 12:40] VITALS: BP 138/74; O2SAT 96
== END 2024-12-15 12:55 | disposition home or self-care (01) ==
LOC: M INFU 07:53
PROVIDERS: ATTEND Student in an Organized Health Care Education/Training Program
DX: M33.90 Dermatopolymyositis, unspecified, organ involvement unspecified (principal)
CPT/HCPCS: 96365; 96366; 96375; J1459; J2919

== ENCOUNTER 2024-12-16 08:17 | Outpatient (CLI) | payer BC ==
[2024-12-16 07:55] VITALS: BP 133/76; O2SAT 99
[2024-12-16] MEDS: IMMUNE GLOBULIN 10% 40 GM in IV 1 EA IV ONE (07:58)
[2024-12-16] MEDS: diphenhydrAMINE 25MG PO PRIOR TO INFUSION PO ONE (08:00)
[2024-12-16] MEDS: IMMUNE GLOBULIN 10% 20 GM in IV 1 EA IV ONE (08:03)
[2024-12-16] MEDS: IMMUNE GLOBULIN 10% 5 GM in IV 1 EA IV ONE (08:05)
[2024-12-16] MEDS: IMMUNE GLOBULIN 10% 10 GM in IV 1 EA IV ONE (08:06)
[2024-12-16 08:30] VITALS: BP 137/70; O2SAT 98
[2024-12-16 09:00] VITALS: BP 136/79; O2SAT 99
[2024-12-16 09:30] VITALS: BP 150/84; O2SAT 97
[2024-12-16 10:30] VITALS: BP 148/80; O2SAT 98
[2024-12-16 12:30] VITALS: BP 154/88; O2SAT 98
== END 2024-12-16 12:45 | disposition home or self-care (01) ==
LOC: M INFU 08:17
PROVIDERS: ATTEND Student in an Organized Health Care Education/Training Program
DX: M33.90 Dermatopolymyositis, unspecified, organ involvement unspecified (principal)
CPT/HCPCS: 96365; 96366; 96375; J1459; J2919

== ENCOUNTER 2025-02-06 07:45 | Outpatient (CLI) | payer BC ==
[~2025-02-06] VITALS: Ht 170.2 cm; Wt 88.6 kg
[2025-02-06] MEDS ORDERED: diphenhydrAMINE 25MG PO PRIOR TO INFUSION PO ONE (08:00)
[2025-02-06] MEDS: IMMUNE GLOBULIN 10% 10 GM in IV 1 EA IV ONE (08:19)
[2025-02-06] MEDS: IMMUNE GLOBULIN 10% 20 GM in IV 1 EA IV ONE (08:20)
[2025-02-06] MEDS: IMMUNE GLOBULIN 10% 40 GM in IV 1 EA IV ONE (08:21)
[2025-02-06] MEDS: IMMUNE GLOBULIN 10% 5 GM in IV 1 EA IV ONE (08:22)
[2025-02-06 08:26] VITALS: BP 121/62; O2SAT 96
[2025-02-06 09:30] VITALS: BP 132/64; O2SAT 95
[2025-02-06 09:58] VITALS: BP 168/70; O2SAT 97
[2025-02-06 12:59] VITALS: BP 162/79; O2SAT 96
== END 2025-02-06 13:05 | disposition home or self-care (01) ==
LOC: M INFU 07:45
PROVIDERS: ATTEND Student in an Organized Health Care Education/Training Program
DX: M33.13 Other dermatomyositis without myopathy (principal)
CPT/HCPCS: 96365; 96366; 96375; J1459; J2919

== ENCOUNTER 2025-02-07 07:45 | Outpatient (CLI) | payer BC ==
[~2025-02-07] VITALS: Ht 170.2 cm; Wt 88.6 kg
[2025-02-07] VITALS (7 sets, daily range): BP systolic 148–170; BP diastolic 75–90; O2SAT 97–99
[2025-02-07] MEDS ORDERED: diphenhydrAMINE 25MG PO PRIOR TO INFUSION PO ONE (08:00)
[2025-02-07] MEDS: IMMUNE GLOBULIN 10% 5 GM in IV 1 EA IV ONE (08:03)
[2025-02-07] MEDS: IMMUNE GLOBULIN 10% 10 GM in IV 1 EA IV ONE (08:03)
[2025-02-07] MEDS: IMMUNE GLOBULIN 10% 20 GM in IV 1 EA IV ONE (08:04)
[2025-02-07] MEDS: IMMUNE GLOBULIN 10% 40 GM in IV 1 EA IV ONE (08:05)
== END 2025-02-07 12:55 | disposition home or self-care (01) ==
LOC: M INFU 07:45
PROVIDERS: ATTEND Student in an Organized Health Care Education/Training Program
DX: M33.13 Other dermatomyositis without myopathy (principal)
CPT/HCPCS: 96365; 96366; 96375; J1459; J2919